=== PATIENT | female | born 1945 | race Caucasian/White ===

== ENCOUNTER 2020-01-30 01:30 | Outpatient (CLI) | payer MEDICARE, OTHER, SELFPAY ==
[2020-01-30 18:54] LABS: SARS-CoV-2 RNA PCR Negative
== END 2020-01-30 01:31 | disposition home or self-care (01) ==
PROVIDERS: PCP Internal Medicine; Visit Provider Internal Medicine Gastroenterology
DX: Z01.812 Encounter for preprocedural laboratory examination (principal); Z20.828 Contact with and (suspected) exposure to other viral communicable diseases
CPT/HCPCS: 87635; C9803; U0003

== ENCOUNTER 2020-02-01 00:49 | Day surgery (SDC) | payer MEDICARE, OTHER, SELFPAY ==
[2020-01-26 13:58] VITALS: BMI 32.0
[2020-02-01 08:32] VITALS: BP 144/81; PULSE 69; RESP 18; TEMP 36.6; O2SAT 100
--- NOTE | 2020-02-01 08:48 | P.PNAN_ITS ---
Anes - Initial Pre Proc Eval Procedure: Operation Date: 02/01/20 09:00 Proposed Procedures p Esophagogastroduodenoscopy - Tyshawn Colon MD Date/Time: 02/01/20 08:48 Surgeon: Tyshawn Colon MD Pre Op Diagnosis: Nausea and Diarrhea Patient Data Age: 74 Gender: F Height: 5 ft 3 in Weight: 83.4 kg Last Vital Signs Temp 97.9 F 02/01/20 08:32 Pulse 69 02/01/20 08:32 Resp 18 02/01/20 08:32 BP 144/81 H 02/01/20 08:32 Pulse Ox 100 02/01/20 08:32 Allergies Allergy/AdvReac Type Severity Reaction Status Date / Time Penicillins Allergy Severe SWELLING/PUFFINESS/DIFFICULTY Verified 02/01/20 08:31 BREATHING/ALOPECIA ciprofloxacin [From Cipro] Allergy Rash Verified 02/01/20 08:31 ketamine AdvReac Intermediate HALLUCINATI Verified 02/01/20 08:31 ONS Home Medications Medication Instructions Recorded Confirmed Type cholecalciferol (vitamin D3) 50 2,000 unit PO DAILY #30 tablet 05/03/19 01/26/20 Rx mcg (2,000 unit) tablet evolocumab 140 mg/mL subcutaneous 140 mg SUB-Q ONCE 05/03/19 01/26/20 History pen injector ketoconazole 2 % shampoo 1 applic TOPICAL 2XW 05/03/19 01/26/20 History clobetasol 0.05 % scalp solution 1 applic TOPICAL DAILY #50 ml 07/25/19 01/26/20 Rx zolpidem 10 mg tablet 10 mg PO .AT HS #30 tablet 10/30/19 01/26/20 Rx levothyroxine 100 mcg capsule 100 mcg PO DAILY #90 cap 11/23/19 01/26/20 Rx amitriptyline 10 mg tablet 25 mg PO .HS tablet 01/02/20 01/26/20 History losartan 50 mg-hydrochlorothiazide 1 tablet PO DAILY 01/02/20 01/26/20 History 12.5 mg tablet oxybutynin chloride 15 mg 15 mg PO DAILY 01/02/20 01/26/20 History tablet,extended release 24 hr pantoprazole 20 mg tablet,delayed 20 mg PO QAM #30 tablet 01/02/20 01/26/20 Rx release tramadol 50 mg tablet 50 mg PO Q6H PRN 01/02/20 01/26/20 History amiodarone 200 mg DAILY 01/26/20 01/26/20 History omalizumab [Xolair] 150 mg SUBCUT MONTHLY 01/26/20 01/26/20 History nystatin 100,000 unit/mL oral 5 ml PO QID #150 ml 01/30/20 Rx suspension Patient hx anesthesia problems: none Family hx anesthesia problems: none [facility] Social History Social History Smoking status: Former smoker Alcohol intake: never Anes - Eval Final PreProcedure Day of Procedure 02/01/20 08:48 Patient weight: normal Heart: regular rate and rhythm Lungs: clear to auscultation Airway: Mallampati scale class III Neurological: alert and oriented Last oral intake: >/= 8 hours ASA classification: III Emergent: no Anesthetic plan: proceed Anesthesia type and monitoring: general GIVS and standard monitoring Informed Consent: The patient's anesthetic plan and its attendant risks and benefits were discussed with the patient/family/POA. Questions were solicited and answers provided to the satisfaction of the patient/family/POA.
--- NOTE | 2020-02-01 08:51 | WPDGICN ---
Assessment and Plan Assessment and plan (1) Nausea: Code(s): R11.0 - Nausea Status: Acute Assessment and Plan: Patient has intermittent nausea along with a history of gastric ulcer. Prior history of gastric bypass. Because of patient's difficult history. Plan is for repeat EGD to assess for anatomy and pathology in this area. Continue try a pantoprazole elevating head of bed at night no late snacks is encourage. She reports of funny taste in her mouth which may be related to acid reflux but potentially may be related to medication side effects. (2) History of gastric ulcer: Code(s): Z87.19 - Personal history of other diseases of the digestive system Status: Acute (3) Gastric bypass status for obesity: Code(s): Z98.84 - Bariatric surgery status Status: Acute (4) Family history of colon cancer in mother: Code(s): Z80.0 - Family history of malignant neoplasm of digestive organs Status: Acute Assessment and Plan: Patient's family history is significant her mother had colon cancer. Most recent colon surveillance colonoscopy performed 2018 was unremarkable. This is anticipated to be repeated at 5 year intervals. Unless symptoms worsen. (5) Diarrhea: Code(s): R19.7 - Diarrhea, unspecified Status: Acute Assessment and Plan: Diarrhea occurs intermittently. Symptoms appear most consistent with irritable bowel syndrome fiber supplements are encourage. Colonoscopy several years ago was unremarkable. This will not be repeated unless symptoms worsen. GI Consult Note Consult date/time: 02/01/20 08:51 HPI: Shaista Mares is a 74 year old female seen in evaluation at the request of Dr Eligio Menezes. Patient complains of vague abdominal discomfort. She has had nausea for the last 2 months. Associated with diarrhea and loose stools. She reports a difficulty unusual taste in her mouth. She has a hard time describing this. She recently was empirically treated for possible thrush. She denies any heartburn. She denies any overt abdominal pain. She states she has watery stools 3 times a week. Otherwise stools are normal. Nausea occurs intermittently. otherwise she is able to eat normally. She sometimes will complain and nocturnal regurgitation. Past medical history is significant for gastric bypass. In the year 1999. Colonoscopy in 2018 revealed diverticulosis and hemorrhoids. An EGD in 2018 revealed evidence for previous gastric bypass surgery. Patient gives a history of gastric ulcer in the past. Current medications include a trial of pantoprazole over the last 2 weeks with no help in symptoms. Family history is significant her mother had colon cancer. Review of Systems Review of Systems: All systems reviewed & are unremarkable except as noted in HPI and below PMFSH Past Medical History Medical History Anal fistula Chronic interstitial cystitis Chronic rhinitis Contusion of urethra Cystitis IBS (irritable bowel syndrome) Kidney stone Lumbago Obesity Osteoporosis Peptic ulcer Ventral hernia Surgical History Surgical History Gastric bypass status for obesity History of colonoscopy Hx of hysterectomy, total S/P laparoscopic hernia repair Family History Family History Father Acute myocardial infarction Mother Acute myocardial infarction Mother Cancer of unknown origin Mother Kidney stones Mother Family history of malignant neoplasm Family history of renal failure, Onset Age: 78 Acute myocardial infarction Family history of kidney stones Father Acute myocardial infarction Social History Social History Smoking status: Former smoker Alcohol intake: never Meds Home Medications and Allergies
[2020-02-01] MEDS: LACTATED RINGERS 1,000 ML 150 ML IV CONT (08:52)
[2020-02-01] MEDS: BENZOCAINE (*SP) 60 ML SPRAY CAN (HURRICAINE) 1 SPRAY MUCOUS MEM (09:03)
[2020-02-01 09:19] VITALS: BP 129/68; PULSE 67; RESP 22; O2SAT 100
[2020-02-01 09:29] VITALS: BP 126/75; PULSE 66; RESP 20; O2SAT 100
[2020-02-01 09:39] VITALS: BP 136/92; PULSE 67; RESP 20; O2SAT 100
== END 2020-02-01 09:59 | disposition home or self-care (01) ==
PROVIDERS: PCP Internal Medicine; Visit Provider Internal Medicine Gastroenterology
PROC: 0DJ08ZZ Inspection of Upper Intestinal Tract, Via Natural or Artificial Opening Endoscopic (ICD-10-PCS; CPT 43235; principal; 2020-02-01 09:00)
DX: Q39.4 Esophageal web (principal); Z87.11 Personal history of peptic ulcer disease; Z98.84 Bariatric surgery status; Z80.0 Family history of malignant neoplasm of digestive organs; R19.7 Diarrhea, unspecified; M81.0 Age-related osteoporosis without current pathological fracture; E66.9 Obesity, unspecified; Z68.32 Body mass index [BMI] 32.0-32.9, adult; Z87.891 Personal history of nicotine dependence
CPT/HCPCS: 43249; C1726; J2704; J7120

== ENCOUNTER 2021-01-28 15:58 | Outpatient (CLI) | payer MEDICARE, OTHER, SELFPAY ==
--- NOTE | ~2021-01-28 | MM_ITS ---
EXAMINATION: MM screening [facility] BI w russell HISTORY: Screening mammogram TECHNIQUE: Craniocaudal and mediolateral oblique 3-D tomosynthesis images were obtained and synthetic 2-D images were generated. CAD analysis was submitted and interpreted. COMPARISON: 04/13/2019, 06/08/2017, 06/02/2016 BREAST PARENCHYMAL COMPOSITION: There are scattered areas of fibroglandular density. FINDINGS: Scattered benign-appearing calcifications are present. There is no evidence of suspicious m ass, calcification, or architectural distortion to suggest malignancy in either breast. There has bee n no suspicious interval change. IMPRESSION: 1. No mammographic evidence of malignancy. 2. Recommend routine screening mammography in one year. BI-RADS Category 2: Benign finding(s). Reviewed, dictated and finalized at location A.
== END 2021-01-28 15:59 | disposition home or self-care (01) ==
LOC: ANHIMG 16:00
PROVIDERS: PCP Internal Medicine; Visit Provider Nurse Practitioner
DX: Z12.31 Encounter for screening mammogram for malignant neoplasm of breast (principal)
CPT/HCPCS: 77063; 77067

== ENCOUNTER 2021-03-31 15:26 | Outpatient (CLI) | payer MEDICARE, OTHER, SELFPAY ==
--- NOTE | ~2021-03-31 | XR_ITS ---
EXAMINATION: XR chest 2V 03/31/2021 15:52 INDICATION: Shortness of breath PROCEDURE: 2 view chest COMPARISON: No prior studies for comparison. FINDINGS: The lungs are clear. Pacemaker leads are in expected position. The cardiomediastinal silhou ette is within normal limits. There are no pleural effusions. There is no pneumothorax suspected. There is accentuated thoracic kyphosis with moderate thoracic spondylosis. IMPRESSION: 1: NO ACUTE CARDIOPULMONARY DISEASE. Reviewed, dictated and finalized at location B.
== END 2021-03-31 15:27 | disposition home or self-care (01) ==
LOC: ANHIMG 15:39
PROVIDERS: PCP Internal Medicine
DX: R06.02 Shortness of breath (principal)
CPT/HCPCS: 71046

== ENCOUNTER 2021-10-29 16:57 | Outpatient (CLI) | payer MEDICARE, OTHER, SELFPAY ==
--- NOTE | ~2021-10-29 | US_ITS ---
EXAMINATION: US renal BI DATE: 10/29/2021 18:10 INDICATION: Chronic kidney disease stage 3A TECHNIQUE: Multiple grayscale and Doppler ultrasound images of the kidneys were obtained. COMPARISON: None available FINDINGS: The right kidney measures 8.4 x 4.2 x 4.4 cm. The left kidney measures 10.3 x 5.1 x 4.8 cm. The kidne ys demonstrate normal parenchymal echogenicity with mild cortical thinning.No sonographic evidence of nephrolithiasis. No mass. Mild right hydronephrosis. The bladder is normal, with normal bilateral ur eteral jets. Bladder wall thickness 0.4 cm. IMPRESSION: 1. Bilateral cortical atrophy. 2. Bladder wall thickening as can be seen with cystitis. Reviewed, dictated and finalized at location K.
== END 2021-10-29 16:58 | disposition home or self-care (01) ==
LOC: ANHIMG 17:02
PROVIDERS: PCP Internal Medicine; Visit Provider Internal Medicine Nephrology
DX: N18.31 Chronic kidney disease, stage 3a (principal); N13.30 Unspecified hydronephrosis
CPT/HCPCS: 76775

== ENCOUNTER 2022-06-03 10:42 | Outpatient (CLI) | payer MEDICARE, SELFPAY ==
--- NOTE | ~2022-06-03 | XR_ITS ---
Supine and upright views of the abdomen Clinical history: Right renal stone Findings: Bowel gas pattern is nonspecific. No evidence for obstruction or free air. Probable right l ower pole renal stone present, measuring 1 cm. Possible urinary bladder stone versus pelvic phlebolit h. Stable presumed neurostimulator device. Degenerative change of the lumbar spine noted. Impression: Probable 1 cm right lower pole renal stone. Possible urinary bladder stone versus pelvic phlebolith. Reviewed, dictated and finalized at location . R OPERATOR Impression: Probable 1 cm right lower pole renal stone. Possible urinary bladder stone versus pelvic phlebolith.
== END 2022-06-03 10:43 | disposition home or self-care (01) ==
PROVIDERS: PCP Internal Medicine; Visit Provider Nurse Practitioner Adult Health
DX: N20.0 Calculus of kidney (principal)
CPT/HCPCS: 74018

== ENCOUNTER 2022-06-22 15:23 | Outpatient (CLI) | payer MEDICARE, SELFPAY ==
--- NOTE | ~2022-06-22 | MM_ITS ---
EXAMINATION: MM screening [facility] BI w russell HISTORY: Screening mammogram TECHNIQUE: Craniocaudal and mediolateral oblique 3-D tomosynthesis images were obtained and synthetic 2-D images were generated. CAD analysis was submitted and interpreted. COMPARISON: 01/28/2021, 04/13/2019, 06/08/2017 bilateral screening mammogram examinations BREAST PARENCHYMAL COMPOSITION: There are scattered areas of fibroglandular density. FINDINGS: Bilateral benign calcifications. There is no evidence of suspicious mass, calcification, or architectural distortion to suggest malignancy in either breast. There has been no suspicious interv al change. IMPRESSION: 1. No mammographic evidence of malignancy. 2. Recommend routine screening mammography in one year. BI-RADS Category 2: Benign finding(s). Reviewed, dictated and finalized at location A. 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
== END 2022-06-22 15:24 | disposition home or self-care (01) ==
LOC: ANHIMG 15:26
PROVIDERS: PCP Internal Medicine; Visit Provider Internal Medicine
DX: Z12.31 Encounter for screening mammogram for malignant neoplasm of breast (principal)
CPT/HCPCS: 77063; 77067

== ENCOUNTER 2022-07-03 12:56 | Outpatient (CLI) | payer MEDICARE, SELFPAY ==
--- NOTE | 2022-07-03 13:11 | ECG_ITS ---
Measurements Intervals [place] Rate: 67 P: 119 WI: 180 QRS: 4 QRSD: 114 T: 5 QT: 401 QTc: 425 Interpretive Statements ELECTRONIC ATRIAL PACEMAKER LOW QRS VOLTAGE IN PRECORDIAL LEADS INCOMPLETE RIGHT BUNDLE BRANCH BLOCK BASELINE ARTIFACT- I, II, III, AVR, AVL, AVF, V3-V6 BORDERLINE ECG NO PREVIOUS ECG AVAILABLE FOR COMPARISON Electronically Signed On 07-03-2022 13:39:05 RETAIL OPERATIONS MANAGER by Edinson Nguyen D.O.
[2022-07-03 14:11] LABS: Anion Gap 7 mmol/L (8-16); Blood Urea Nitrogen 17 mg/dL (7-17); Calcium 9.1 mg/dL (8.4-10.2); Carbon Dioxide 25 mmol/L (22-30); Chloride 104 mmol/L (98-107); Estimated Glomerular Filt Rate 37; Glucose 75 mg/dL (65-110); Sodium 136 mmol/L (137-145)
[2022-07-03 14:13] LABS: INR 1.1; Prothrombin Time 14.1 Seconds (11.1-14.7)
[2022-07-03 14:14] LABS: Partial Thromboplastin Time 32.2 SECONDS (22.3-36.8)
== END 2022-07-03 12:57 | disposition home or self-care (01) ==
PROVIDERS: Anesthesiology; PCP Internal Medicine; Visit Provider Urology
DX: Z01.818 Encounter for other preprocedural examination (principal); Z79.899 Other long term (current) drug therapy; I10 Essential (primary) hypertension; N20.0 Calculus of kidney; Z95.0 Presence of cardiac pacemaker
CPT/HCPCS: 36415; 80048; 85610; 85730; 87086; 87088; 93005

== ENCOUNTER 2022-07-10 00:02 | Day surgery (SDC) | payer MEDICARE, SELFPAY ==
[2022-07-01 13:18] VITALS: BMI 29.7
--- NOTE | 2022-07-01 13:31 | PC.NURSE ---
PRE-OP INSTRUCTIONS, PLEASE READ CAREFULLY Report to the Outpatient Waiting Room, entrance under the green pavilion located off [facility], at time _0600_ on date _07/10/22_. Planned Procedure Time: _0730_. Time changes happen often and if your time is changed the preop area will call you the afternoon before. - You and your visitor will be asked to self-screen and do not enter if you have any COVID symptoms. - Only one visitor is requested with a max of two and NO children visitors are allowed at this time. - The patient visitor may be requested to leave or wait in car when not with patient due to distancing restrictions. - A mask is optional within the hospital. Patients may have clear liquids (water, carbonated beverages, clear teas, apple juice) until 3 hours prior to surgery (0430 AM) with a maximum of 20 ounces. - No food from midnight until time of surgery Take the following medications with a SIP of water the morning of surgery: _LEVOTHYROXINE_ Medications to discontinue _ELIQUIS PER DR. ROACH/DR. PURDY'S INSTRUCTIONS_ Medications to discontinue per ANESTHESIA - _MULTIVITAMIN, ELDERBERRY 3 DAYS PRIOR TO SURGERY, Date to take last dose 07/06/22_ Please no make-up, nail cape verdean, hairspray, perfume, deodorant, or body powder the day of surgery. No jewelry (including any body piercings) or valuables the day of surgery, leave them at home. Please take a shower or bath the night before, or the morning of, surgery with an antibacterial soap. Wear comfortable, loose fitting clothing. - Jewelry must be removed prior to entering the operating room. Rings and piercings that are not removed may be cut off. - The hospital will not accept responsibility for valuables. - Please leave all valuables, including medications, at home the day of surgery. If you are going home after surgery, a licensed driver starting gate must drive you home. - NO public transportation without another adult if you receive anesthesia. - We recommend that an adult stay with you for 24 hours following discharge. - We also recommend that you do not drive, make important decision, drink alcoholic beverages, or take any drugs that were not prescribed by your health care provider for at least 24 hours after your discharge time. Follow any additional instructions given to you from your surgeon. If you or anyone in your household have experienced Covid symptoms in the past week, please notify your surgeon or the nurse liaison at the phone number below for possible testing. Telephone instructions given to _PATIENT_and asked if any additional questions and then verbalized understanding. Patient advised to call surgeon office or pre surgery nurse liaison [phone] if any additional questions.
--- NOTE | 2022-07-07 07:48 | PM.HPGS ---
History of Present Illness History of Present Illness Consent: Risks, benefits, and alternatives have been discussed and questions answered. Patient agrees to proceed with procedure. Chief complaint: Rt Renal Kidney Stones Narrative: Shaista Mares is a 76 year old female who was recently undergoing evaluation for recurrent urinary tract infections by our nurse practitioner, Elvis Corona, when he renal ultrasound demonstrated a 8 mm right, nonobstructing renal calculus. The stone appears calcified on KUB. After discussion of therapeutic options he has elected to proceed with right ESWL. She is aware of the risk of this including, but not limited to, adverse cardiopulmonary events, persistent stone fragments that may require additional procedures, hematuria and perinephric hematoma. Review of Systems Cardiovascular: Cardiovascular: Denies chest pain, Denies lightheadedness, Denies palpitations and Denies dyspnea Respiratory: Respiratory: Denies dyspnea Gastrointestinal: Gastrointestinal: Denies diarrhea, Denies nausea and Denies vomiting Genitourinary: Genitourinary: Denies hematuria and Denies dysuria Endocrine: Endocrine: Denies palpitations PMFSH Past Medical History Medical History Anal fistula Chronic interstitial cystitis Chronic rhinitis Contusion of urethra Cystitis Depressive disorder Diarrhea Disorder of iron metabolism Effusion of knee joint right Effusion, left knee Esophageal reflux Family history of colon cancer in mother History of gastric ulcer Hyperlipidemia Hypertension Hypothyroidism IBS (irritable bowel syndrome) Insomnia Kidney stone Left knee DJD Left knee pain Lipids serum increased Low iron Lumbago Nausea Obesity Osteoporosis Peptic ulcer Rash Right knee DJD Right knee pain Screening mammogram, encounter for Ventral hernia Surgical History Surgical History Gastric bypass status for obesity History of colonoscopy History of permanent cardiac pacemaker placement Hx of hysterectomy, total S/P laparoscopic hernia repair Family History Family History Father Acute myocardial infarction Mother Acute myocardial infarction Mother Cancer of unknown origin Mother Kidney stones Mother Family history of malignant neoplasm Family history of renal failure, Onset Age: 78 Acute myocardial infarction Family history of kidney stones Father Acute myocardial infarction Social History Social History (Updated 04/29/22 @ 14:16 by Anitha Yung MA) Years smoked: 30 Smoking status: Former smoker Tobacco type: cigarettes Second hand tobacco smoke exposure: No Additional smoking assessment comments: STATES SMOKED 1PK/WEEK OFF-ON/30YRS/QUIT 1989 Alcohol intake: never Substance use: never Substance use type: does not use Lack of Transportation: No Lack of Food: Never True Current Housing: I Have Housing Concerned About Future Housing: No Difficulty Paying Gas/Electric Bills: No Difficulty Paying for Meds: No Currently Unemployed: No Education: High School Diploma/GED Difficulty w/ Childcare or Family Care: No Living arrangements: with family Spiritual care concerns: No Meds Home Medications and Allergies Home Medications Medication Instructions Recorded Confirmed Type losartan 50 mg-hydrochlorothiazide 1 tablet PO DAILY 01/02/20 07/01/22 History 12.5 mg tablet omalizumab 150 mg/mL subcutaneous 150 mg subcut MONTHLY 01/26/20 07/01/22 History syringe (Xolair) amitriptyline 10 mg tablet 10 mg PO .QHS 05/08/20 07/01/22 History cetirizine 10 mg capsule (All Day 10 mg PO DAILY 05/08/20 07/01/22 History Allergy (cetirizine)) evolocumab 140 mg/mL subcutaneous 140 mg subcut .Q 2 weeks 05/08/20 07/01/22 History pen injector (Sree Miramontes) apixaban 5 mg
[2022-07-10] VITALS (9 sets, daily range): BP systolic 132–149; BP diastolic 72–87; PULSE 63–78; RESP 16–19; TEMP 36.1–36.3; O2SAT 97–100
--- NOTE | ~2022-07-10 | XR_ITS ---
Supine and upright views of the abdomen Clinical history: Lithotripsy COMPARISON: 06/03/2022 Findings: Bowel gas pattern is nonspecific. No evidence for obstruction or free air. Right lower pole renal stone measures 1 cm in size. Calcified pelvic phleboliths are similar to prior exam.. Evidence of prior herniorrhaphy noted. Electronic medical office coordinator unchanged. Osseous structures are intact. Impression: 1 cm right lower pole renal stone. Evidence of prior herniorrhaphy. Stable electronic medical office coordinator. Reviewed, dictated and finalized at location . [employer]ICAL [employer] Impression: 1 cm right lower pole renal stone. Evidence of prior herniorrhaphy. Stable electronic medical office coordinator.
--- NOTE | 2022-07-10 06:45 | WPDHPUPDATE1 ---
History and Physical Update Update Date/Time: 07/10/22 06:45 History and Physical has been reviewed, including an updated exam of the patient. There are NO changes in the patient's condition. Risks, benefits, and alternatives have been discussed and questions answered. Patient agrees to proceed with procedure.
--- NOTE | 2022-07-10 06:47 | WPDHPUPDATE1 ---
History and Physical Update Update Date/Time: 07/10/22 06:47 History and Physical has been reviewed, including an updated exam of the patient. There are NO changes in the patient's condition. Risks, benefits, and alternatives have been discussed and questions answered. Patient agrees to proceed with procedure.
--- NOTE | 2022-07-10 06:49 | WPDHPUPDATE1 ---
History and Physical Update Update Date/Time: 07/10/22 06:49 History and Physical has been reviewed, including an updated exam of the patient. There are NO changes in the patient's condition. Risks, benefits, and alternatives have been discussed and questions answered. Patient agrees to proceed with procedure.
[2022-07-10] MEDS: LACTATED RINGERS 1,000 ML 30 ML IV CONT (07:05)
--- NOTE | 2022-07-10 07:18 | WPDANESEPPF ---
Anes - Initial Pre Proc Eval Procedure: Operation Date: 07/10/22 07:30 Proposed Procedures p Right Extracorporeal Shock Wave Lithotripsy - Joe Kennedy MD s Flexible Cystoscopy - Joe Kennedy MD Date/Time: 07/10/22 07:18 Surgeon: Joe Kennedy MD Pre Op Diagnosis: Rt Renal Kidney Stones Patient Data Age: 76 Gender: F Height: 1.61 m Weight: 75.5 kg Last Vital Signs Temp 36.3 C L 07/10/22 07:08 Pulse 78 07/10/22 07:08 Resp 16 07/10/22 07:08 BP 145/84 H 07/10/22 07:08 Pulse Ox 100 07/10/22 07:08 O2 Del Method Room Air 07/10/22 07:08 Allergies Allergy/AdvReac Type Severity Reaction Status Date / Time Penicillins Allergy Severe SWELLING/PUFFINESS/DIFFICULTY Verified 07/10/22 06:37 BREATHING/ALOPECIA doxycycline Allergy Intermediate Rash Verified 07/10/22 06:37 ciprofloxacin [From Cipro] Allergy Rash Verified 07/10/22 06:37 ketamine AdvReac Intermediate HALLUCINATI Verified 07/10/22 06:37 ONS Home Medications Medication Instructions Recorded Confirmed Type losartan 50 mg-hydrochlorothiazide 1 tablet PO DAILY 01/02/20 07/01/22 History 12.5 mg tablet omalizumab 150 mg/mL subcutaneous 150 mg subcut MONTHLY 01/26/20 07/01/22 History syringe (Xolair) amitriptyline 10 mg tablet 10 mg PO .QHS 05/08/20 07/01/22 History cetirizine 10 mg capsule (All Day 10 mg PO DAILY 05/08/20 07/01/22 History Allergy (cetirizine)) evolocumab 140 mg/mL subcutaneous 140 mg subcut .Q 2 weeks 05/08/20 07/01/22 History pen injector (Repatha SureClick) apixaban 5 mg tablet (Eliquis) 5 mg PO BID 10/03/20 07/01/22 History hydroxyzine HCl 25 mg tablet 25 mg PO DAILY PRN Itching 10/03/20 07/01/22 History levothyroxine 100 mcg tablet See Rx Instructions .Route 02/02/22 07/01/22 Rx .COMPLEX #90 tabs ketoconazole 2 % shampoo 1 applic topical 2XW #120 mL 05/21/22 07/01/22 Rx sertraline 25 mg tablet 25 mg PO DAILY #30 tabs 06/16/22 07/01/22 Rx cholecalciferol (vitamin D3) 125 125 mcg PO DAILY 07/01/22 07/01/22 History mcg (5,000 unit) capsule docusate sodium 100 mg tablet 100 mg PO DAILY 07/01/22 07/01/22 History (Stool Softener) elderberry fruit 200 mg capsule 400 mg PO DAILY 07/01/22 07/01/22 History multivitamin 1 tablet PO DAILY 07/01/22 07/01/22 History zolpidem 10 mg tablet 10 mg PO DAILY #30 tabs 07/08/22 Rx Patient hx anesthesia problems: none Family hx anesthesia problems: post op nausea/vomiting Results Review: All pre-operative results and documents have been reviewed as part of the pre-operative evaluation. [facility] Past Medical History Medical History Anal fistula Chronic interstitial cystitis Chronic rhinitis Contusion of urethra Cystitis Depressive disorder Diarrhea Disorder of iron metabolism Effusion of knee joint right Effusion, left knee Esophageal reflux Family history of colon cancer in mother History of gastric ulcer Hyperlipidemia Hypertension Hypothyroidism IBS (irritable bowel syndrome) Insomnia Kidney stone Left knee DJD Left knee pain Lipids serum increased Low iron Lumbago Nausea Obesity Osteoporosis Peptic ulcer Rash Right knee DJD Right knee pain Screening mammogram, encounter for Ventral hernia Surgical History Surgical History Gastric bypass status for obesity History of colonoscopy History of permanent cardiac pacemaker placement Hx of hysterectomy, total S/P laparoscopic hernia repair Family History Family History Father Acute myocardial infarction Mother Acute myocardial infarction Mother Cancer of unknown origin Mother Kidney stones Mother Family history of malignant neoplasm Family history of renal failure, Onset Age: 78 Acute myocardial infarction Family history of kidney stones Father Acute myocardial infarction S
[2022-07-10] MEDS: ceFAZolin 2 GM/D5W 50 ML 2 GM/50 ML BAG IVPB (07:29)
[2022-07-10] MEDS: LIDOCAINE HCL 2% GEL UROJET 10 ML PKG MUCOUS MEM (07:45)
--- NOTE | 2022-07-10 08:13 | P.OP_ITS ---
Procedure Note - Detailed Date of Procedure 07/10/22 Pre-op Diagnosis Right kidney stone / recurrent UTI's Post-op Diagnosis Same Procedure Performed Flexible cystoscopy, right ESWL Surgeon Joe Kennedy MD Anesthesia General Description of Procedure The patient was brought to the operative suite where she was placed in the frog- legged position on the Dornier lithotripter table. Flexible cystoscopy was undertaken with a 16F flexible cystoscopy. Her urethra and bladder neck were endoscopically normal. The bladder mucosa was normal and there was a single, orthotopic ureteral orifice bilaterally. The patient was then repositioned in the supine position and the focal point of the lithotriptor was placed at a 8mm right renal calculus. A total of 2500 shocks were delivered at a power setting of 3. There appeared to be good fragmentation of the stone. The patient tolerated the procedure well and was taken to the recovery room in good condition. Drains No Packing No Pathology None sent Complications No immediate complications
--- NOTE | 2022-07-10 08:55 | PC.NURSE ---
attempted x2 for IV insertion without success. Will address pain by giving patient oral pain medication, which patient agrees with.
[2022-07-10] MEDS: oxyCODONE HCL (*CRX) 2.5 MG TAB IR PO (08:57)
== END 2022-07-10 10:08 | disposition home or self-care (01) ==
PROVIDERS: PCP Internal Medicine; Visit Provider Urology
PROC: (CPT 50590; principal; 2022-07-10 07:30)
PROC: 0TJB8ZZ Inspection of Bladder, Via Natural or Artificial Opening Endoscopic (ICD-10-PCS; CPT 52000; 2022-07-10 07:30)
DX: N20.0 Calculus of kidney (principal); Z87.440 Personal history of urinary (tract) infections; I10 Essential (primary) hypertension; E03.9 Hypothyroidism, unspecified; E78.5 Hyperlipidemia, unspecified; F32.A Depression, unspecified; K21.9 Gastro-esophageal reflux disease without esophagitis; K58.9 Irritable bowel syndrome, unspecified; M81.0 Age-related osteoporosis without current pathological fracture; Z95.0 Presence of cardiac pacemaker; Z98.84 Bariatric surgery status; Z87.891 Personal history of nicotine dependence; Z79.01 Long term (current) use of anticoagulants; Z79.899 Other long term (current) drug therapy
CPT/HCPCS: 50590; 52000; 36415; 74018; 80048; 85610; 85730; 87086; 87088; 93005; A9270; J0690; J3010; J7120

== ENCOUNTER 2022-07-24 14:35 | Outpatient (CLI) | payer MEDICARE, SELFPAY ==
--- NOTE | ~2022-07-24 | XR_ITS ---
EXAMINATION: XR abdomen/kub 1V INDICATION: Calculus of the kidney TECHNIQUE: Supine view of the abdomen is obtained. COMPARISON: 07/10/2022 FINDINGS: The previously described right kidney lower pole stone is no longer identified. There are p hleboliths of the pelvis. No definite stones are identified along the expected course of the right ur eter. Changes of mesh hernia repair are noted. The bowel gas pattern is normal. 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 IMPRESSION: 1. No definite urolithiasis identified. Reviewed, dictated and finalized at location B. [employer] MASTER
== END 2022-07-24 14:36 | disposition home or self-care (01) ==
LOC: ANHIMG 14:36
PROVIDERS: PCP Internal Medicine; Visit Provider Urology
DX: N20.0 Calculus of kidney (principal)
CPT/HCPCS: 74018

== ENCOUNTER 2023-01-01 14:23 | Outpatient (CLI) | payer MEDICARE, SELFPAY ==
--- NOTE | ~2023-01-01 | XR_ITS ---
XR abdomen/kub 1V DATE: 01/01/2023 14:43 INDICATION: Right renal stone TECHNIQUE: 2 supine AP views of the abdomen COMPARISON: July 24, 2022 KUB 07/10/2022 KUB FINDINGS: Right atrial and right ventricular pacemaker leads and left-sided pacemaker device. Postoperative change is noted with radiopaque sutures and surgical clips overlying the superomedial l eft upper quadrant. Status post mesh hernia repair of the upper and mid abdominal wall. Right-sided battery pack with right sacral neural foraminal lead. No obvious renal or ureteral calcified calculi are noted.. The 1 cm calcific calculus of the lower po le the right kidney of 07/10/2022 is no longer identified. One or more probable bladder calculi, which has (have) shifted from the left to the right side of the urinary bladder since 07/10/2022. Degenerative spurring and levoscoliosis of the thoracic spine. Lumbar dextroscoliosis. Prominent degenerative disease at L3-4, L4-5 and L5-S1. Osteopenia. IMPRESSION: Probable bladder calcified calculi Reviewed, dictated and finalized at Location A. Reviewed, dictated and finalized at location B.
== END 2023-01-01 14:24 | disposition home or self-care (01) ==
PROVIDERS: PCP Family Medicine; Visit Provider Urology
DX: N20.0 Calculus of kidney (principal)
CPT/HCPCS: 74018

== ENCOUNTER 2023-03-11 00:30 | Day surgery (SDC) | payer MEDICARE, SELFPAY ==
[2023-03-02 13:19] VITALS: BMI 28.6
[2023-03-11 09:53] VITALS: BP 149/86; PULSE 66; RESP 20; TEMP 36.4; O2SAT 100; BMI 28.3
--- NOTE | 2023-03-11 10:14 | WPDANESEPPF ---
Anes - Initial Pre Proc Eval Procedure: Operation Date: 03/11/23 11:15 Proposed Procedures p Esophagogastroduodenoscopy & Colonoscopy - Tyshawn Colon MD Date/Time: 03/11/23 10:14 Surgeon: Tyshawn Colon MD Pre Op Diagnosis: GERD,unspec abd pain,other fecal abnormalities Patient Data Age: 77 Gender: F Height: 1.63 m Weight: 74.9 kg Last Vital Signs Temp 97.6 F 03/11/23 09:53 Pulse 66 03/11/23 09:53 Resp 20 03/11/23 09:53 BP 149/86 H 03/11/23 09:53 Pulse Ox 100 03/11/23 09:53 O2 Del Method Room Air 03/11/23 09:53 Allergies Allergy/AdvReac Type Severity Reaction Status Date / Time Penicillins Allergy Severe SWELLING/PUFFINESS/DIFFICULTY Verified 03/02/23 13:21 BREATHING/ALOPECIA ciprofloxacin [From Cipro] Allergy Intermediate Rash Verified 03/02/23 13:21 doxycycline Allergy Intermediate Rash Verified 03/02/23 13:21 ketamine AdvReac Intermediate HALLUCINATI Verified 03/02/23 13:21 ONS Home Medications Medication Instructions Recorded Confirmed Type omalizumab 150 mg/mL subcutaneous 150 mg subcut MONTHLY 01/26/20 03/02/23 History syringe (Xolair) amitriptyline 10 mg tablet 10 mg PO .QHS 05/08/20 03/02/23 History cetirizine 10 mg capsule (All Day 10 mg PO DAILY 05/08/20 03/02/23 History Allergy (cetirizine)) evolocumab 140 mg/mL subcutaneous 140 mg subcut .Q 2 weeks 05/08/20 03/02/23 History pen injector (Repatha SureClick) apixaban 5 mg tablet (Eliquis) 5 mg PO BID 10/03/20 03/02/23 History hydroxyzine HCl 25 mg tablet 25 mg PO DAILY PRN Itching 10/03/20 03/02/23 History cholecalciferol (vitamin D3) 125 125 mcg PO DAILY 07/01/22 03/02/23 History mcg (5,000 unit) capsule docusate sodium 100 mg tablet 100 mg PO DAILY PRN OTHER 07/01/22 03/02/23 History (Stool Softener) elderberry fruit 200 mg capsule 200 mg PO DAILY 07/01/22 03/02/23 History multivitamin 1 tablet PO DAILY 07/01/22 03/02/23 History sertraline 25 mg tablet 25 mg PO DAILY #30 tabs 11/16/22 03/02/23 Rx potassium citrate 10 mEq (1,080 1,080 mg PO BID #60 tabs 12/04/22 03/02/23 Rx mg) tablet,extended release levothyroxine 75 mcg tablet 75 mcg PO DAILY #90 tabs 01/03/23 03/02/23 Rx sodium,potassium,mag sulfates 17.5 See Rx Instructions PO .COMPLEX 02/10/23 Rx gram-3.13 gram-1.6 gram oral soln #354 mL (Suprep Bowel Prep Kit) ketoconazole 2 % shampoo 1 applic topical 2XW #120 mL 02/17/23 03/02/23 Rx omeprazole 20 mg capsule,delayed 20 mg PO DAILY #90 caps 02/17/23 03/02/23 Rx release ondansetron 4 mg disintegrating 4 mg PO Q8H PRN nausea and 02/17/23 03/02/23 Rx tablet vomiting #30 tabs essrbh-mehdepbh-mfrgrus 1 cap PO TID #30 caps 02/18/23 03/02/23 Rx 24,000-76,000-120,000 unit capsule,delayed rel (Creon) sodium,potassium,mag sulfates 17.5 See Rx Instructions PO .COMPLEX 02/24/23 Rx gram-3.13 gram-1.6 gram oral soln #354 mL (Suprep Bowel Prep Kit) cyclosporine 0.05 % eye drops in a 1 drp EACH EYE PRN PRN DRYNESS 03/02/23 03/02/23 History dropperette (Restasis) lidocaine 5 % topical patch 1 patch topical DAILY PRN Pain 03/02/23 03/02/23 History (Lidoderm) zolpidem 10 mg tablet 10 mg PO HS 03/02/23 03/02/23 History Patient hx anesthesia problems: none Family hx anesthesia problems: none Results Review: All pre-operative results and documents have been reviewed as part of the pre-operative evaluation. [facility] Past Medical History Medical History Anal fistula Chronic interstitial cystitis Chronic rhinitis Contusion of urethra Cystitis Depressive disorder Diarrhea Disorder of iron metabolism Effusion of knee joint right Effusion, left knee Esophageal reflux Family history of colon cancer in mother History of gastric ulcer Hyperlipidemia Hypertension Hypothyroidism IBS (irritable bowel syndrome) Insomnia Kidney stone Left knee DJD Left knee pain Lipids serum increased Low iron Lumbago Nausea O
--- NOTE | 2023-03-11 10:16 | PM.HPGS ---
History of Present Illness History of Present Illness Consent: Risks, benefits, and alternatives have been discussed and questions answered. Patient agrees to proceed with procedure. Chief complaint: abdominal pain, positive cologuard Narrative: Shaista Mares is a 77 year old female Presents for both colonoscopy and EGD. Patient complains of epigastric nausea and bloating over last 3 months along with discomfort. She additionally has low abdominal discomfort. Patient's past history is significant for gastric bypass surgery apparently had for revisions to this including hernia surgeries. Family history is significant her mother had colon cancer. Despite this she had a positive Cologuard test. She is known to have hemorrhoids and has bright red blood per rectum intermittently. Patient referred for both colonoscopy and EGD. She denies any weight loss. Review of Systems Review of Systems: Review of systems noncontributory. [facility] Past Medical History Medical History Anal fistula Chronic interstitial cystitis Chronic rhinitis Contusion of urethra Cystitis Depressive disorder Diarrhea Disorder of iron metabolism Effusion of knee joint right Effusion, left knee Esophageal reflux Family history of colon cancer in mother History of gastric ulcer Hyperlipidemia Hypertension Hypothyroidism IBS (irritable bowel syndrome) Insomnia Kidney stone Left knee DJD Left knee pain Lipids serum increased Low iron Lumbago Nausea Obesity Osteoporosis Peptic ulcer Rash Right knee DJD Right knee pain Screening mammogram, encounter for Ventral hernia Surgical History Surgical History Gastric bypass status for obesity History of colonoscopy History of permanent cardiac pacemaker placement Hx of hysterectomy, total S/P laparoscopic hernia repair Family History Family History Father Acute myocardial infarction Mother Acute myocardial infarction Mother Cancer of unknown origin Mother Kidney stones Mother Family history of malignant neoplasm Family history of renal failure, Onset Age: 78 Acute myocardial infarction Family history of kidney stones Father Acute myocardial infarction Social History Social History Years smoked: 20 Smoking status: Former smoker Tobacco type: cigarettes Second hand tobacco smoke exposure: No Additional smoking assessment comments: STATES SMOKED 1PK/WEEK OFF-ON/30YRS/QUIT 1989 Alcohol intake: current Substance use: never Substance use type: does not use Lack of Transportation: No Lack of Food: Never True Current Housing: I Have Housing Concerned About Future Housing: No Difficulty Paying Gas/Electric Bills: No Difficulty Paying for Meds: No Currently Unemployed: No Education: High School Diploma/GED Difficulty w/ Childcare or Family Care: No Living arrangements: with family Gender identity (if verbalized by the patient): Female Spiritual care concerns: No Meds Home Medications and Allergies Home Medications Medication Instructions Recorded Confirmed Type omalizumab 150 mg/mL subcutaneous 150 mg subcut MONTHLY 01/26/20 03/02/23 History syringe (Xolair) amitriptyline 10 mg tablet 10 mg PO .QHS 05/08/20 03/02/23 History cetirizine 10 mg capsule (All Day 10 mg PO DAILY 05/08/20 03/02/23 History Allergy (cetirizine)) evolocumab 140 mg/mL subcutaneous 140 mg subcut .Q 2 weeks 05/08/20 03/02/23 History pen injector (Sree Miramontes) apixaban 5 mg tablet (Eliquis) 5 mg PO BID 10/03/20 03/02/23 History hydroxyzine HCl 25 mg tablet 25 mg PO DAILY PRN Itching 10/03/20 03/02/23 History cholecalciferol (vitamin D3) 125 125 mcg PO DAILY 07/01/22 03/02/23 History mcg (5,000 unit) capsule docusate sodium 100 mg ta
[2023-03-11] MEDS: LACTATED RINGERS 1,000 ML 150 ML IV CONT (10:17)
[2023-03-11 11:32] VITALS: BP 138/77; PULSE 66; RESP 20; O2SAT 100
[2023-03-11 11:42] VITALS: BP 145/82; PULSE 63; RESP 21; O2SAT 98
[2023-03-11 11:52] VITALS: BP 155/89; PULSE 65; RESP 21; O2SAT 99
== END 2023-03-11 12:00 | disposition home or self-care (01) ==
PROVIDERS: PCP Family Medicine; Visit Provider Internal Medicine Gastroenterology
PROC: 0DJ08ZZ Inspection of Upper Intestinal Tract, Via Natural or Artificial Opening Endoscopic (ICD-10-PCS; CPT 43235; principal; 2023-03-11 11:15)
DX: K62.5 Hemorrhage of anus and rectum (principal); R19.5 Other fecal abnormalities; D12.5 Benign neoplasm of sigmoid colon; K64.8 Other hemorrhoids; K57.30 Diverticulosis of large intestine without perforation or abscess without bleeding; Z80.0 Family history of malignant neoplasm of digestive organs; Z98.84 Bariatric surgery status; I10 Essential (primary) hypertension; E78.5 Hyperlipidemia, unspecified; M81.0 Age-related osteoporosis without current pathological fracture; F32.A Depression, unspecified; K21.9 Gastro-esophageal reflux disease without esophagitis; K58.9 Irritable bowel syndrome, unspecified; Z95.0 Presence of cardiac pacemaker; Z79.620 Long term (current) use of immunosuppressive biologic; Z79.01 Long term (current) use of anticoagulants; Z87.891 Personal history of nicotine dependence
CPT/HCPCS: 45380; 43239; 87081; 88305; J2704; J7120

== ENCOUNTER 2023-09-03 10:31 | Outpatient (CLI) | payer MEDICARE, SELFPAY ==
--- NOTE | ~2023-09-03 | XR_ITS ---
XR ribs RT 2V DATE: 09/03/2023 10:53 INDICATION: Lower anterior right rib pain TECHNIQUE: 4 views of right ribs COMPARISON: None FINDINGS: There is diffuse osteopenia. No apparent right rib fracture is noted. Left transvenous pacemaker device with right atrial and right ventricular leads. Surgical clips, medial left upper quadrant. Right gluteal battery pack with right sacral neurotransmitter lead. Status post ventral abdominal wall repair. IMPRESSION: Osteopenia; no right rib fracture is evident Reviewed, dictated and finalized at location B.
--- NOTE | ~2023-09-03 | XR_ITS ---
XR abdomen/kub 1V DATE: 09/03/2023 10:54 INDICATION: Right renal stone. Lower anterior rib pain. TECHNIQUE: 2 AP views COMPARISON: 01/01/2023 KUB Numerous KUB FINDINGS: Left-sided transvenous pacemaker device with leads overlying right atrium and right ventric le. Normal heart size. The lower lung romano are clear. Surgical clips, left upper quadrant. Status post abdominal wall mesh repair. Right lower back battery pack with right sacral neurotransmitter lead. Levoscoliosis and probable compression fractures of the thoracic spine and mild rotatory dextroscolio sis and multilevel degenerative disc disease of the lumbar spine. Osteopenia. No obvious urinary tract calcification is noted. Bilateral calcified pelvic phleboliths. Bowel sutures overlie the left mid abdomen. No bowel obstruction or visceromegaly is evident. IMPRESSION: Postoperative changes Reviewed, dictated and finalized at Location A. Reviewed, dictated and finalized at location B. IMPRESSION: Postoperative changes
== END 2023-09-03 10:32 | disposition home or self-care (01) ==
LOC: ANHIMG 10:37
PROVIDERS: PCP Family Medicine; Visit Provider Physician Assistant
DX: R07.81 Pleurodynia (principal); M85.80 Other specified disorders of bone density and structure, unspecified site
CPT/HCPCS: 71100; 74018

== ENCOUNTER 2023-11-16 12:52 | Outpatient (CLI) | payer MEDICARE, SELFPAY ==
--- NOTE | 2023-11-16 14:30 | NEURO_ITS ---
Impression: # Complains of numbness of hands. # Right ulnar neuropathy across the elbow. # No Carpal Tunnel Syndrome. # Normal needle/EMG exam. Nerve Conduction Studies Anti Sensory Summary Table Stim Site NR Peak (ms) P-T Amp (?V) Site1 Site2 Delta-P (ms) Dist (cm) Heath (m/s) Left Median Anti Sensory (2-3nd Digit) Wrist 2.9 30.8 Wrist 2-3nd Digit 2.9 14.0 48 Wrist 2.9 43.0 Wrist 2-3nd Digit 2.9 14.0 48 Right Median Anti Sensory (2-3nd Digit) Wrist 2.7 35.0 Wrist 2-3nd Digit 2.7 14.0 52 Wrist 2.7 36.1 Wrist 2-3nd Digit 2.7 14.0 52 Left Radial Anti Sensory (Base 1st Digit) Wrist 2.0 14.9 Wrist Base 1st Digit 2.0 0.0 Right Radial Anti Sensory (Base 1st Digit) Wrist 2.8 9.3 Wrist Base 1st Digit 2.8 0.0 Left Ulnar Anti Sensory (5th Digit) Wrist 2.8 37.6 Wrist 5th Digit 2.8 14.0 50 Right Ulnar Anti Sensory (5th Digit) Wrist 2.7 36.2 Wrist 5th Digit 2.7 14.0 52 Motor Summary Table Stim Site NR Onset (ms) O-P Amp (mV) Site1 Site2 Delta-0 (ms) Dist (cm) Heath (m/s) Left Median Motor (Abd Poll Brev) Wrist 3.4 4.1 Elbow Wrist 4.7 29.0 62 Elbow 8.1 4.2 Right Median Motor (Abd Poll Brev) Wrist 2.8 4.5 Elbow Wrist 4.9 29.0 59 Elbow 7.7 4.1 Left Ulnar Motor (Abd Dig Minimi) Wrist 2.8 9.8 A Elbow Wrist 5.1 30.0 59 A Elbow 7.9 7.9 Right Ulnar Motor (Abd Dig Minimi) Wrist 2.2 8.6 A Elbow Wrist 6.2 31.0 50 A Elbow 8.4 6.3 B Elbow Wrist 3.7 20.0 54 B Elbow 5.9 7.1 F Wave Studies NR F-Lat (ms) L-R F-Lat (ms) Left Median (Mrkrs) (Abd Poll Brev) 27.58 1.98 Right Median (Mrkrs) (Abd Poll Brev) 29.55 1.98 Left Ulnar (Mrkrs) (Abd Dig Min) 27.31 0.81 Right Ulnar (Mrkrs) (Abd Dig Min) 28.13 0.81 EMG Side Muscle Nerve Root Ins Act Fibs Amp Dur Recrt Comment Right 1stDorInt Ulnar C8-T1 Nml Nml Nml Nml Nml Right Ext Indicis Radial (Post Int) C7-8 Nml Nml Nml Nml Nml Right Ext Digitorum Radial (Post Int) C7-8 Nml Nml Nml Nml Nml Right BrachioRad Radial C5-6 Nml Nml Nml Nml Nml Right PronatorTeres Median C6-7 Nml Nml Nml Nml Nml Right Abd Poll Brev Median C8-T1 Nml Nml Nml Nml Nml Right ABD Dig Min Ulnar C8-T1 Nml Nml Nml Nml Nml Left 1stDorInt Ulnar C8-T1 Nml Nml Nml Nml Nml Left Ext Indicis Radial (Post Int) C7-8 Nml Nml Nml Nml Nml Left Ext Digitorum Radial (Post Int) C7-8 Nml Nml Nml Nml Nml Left BrachioRad Radial C5-6 Nml Nml Nml Nml Nml Left PronatorTeres Median C6-7 Nml Nml Nml Nml Nml Left Abd Poll Brev Median C8-T1 Nml Nml Nml Nml Nml Left ABD Dig Min Ulnar C8-T1 Nml Nml Nml Nml Nml MTDD
== END 2023-11-16 12:53 | disposition home or self-care (01) ==
LOC: ANHNEURO 12:53
PROVIDERS: PCP Family Medicine; Visit Provider Plastic Surgery
DX: G56.21 Lesion of ulnar nerve, right upper limb (principal)
CPT/HCPCS: 95886; 95911

== ENCOUNTER 2023-12-08 14:38 | Outpatient (CLI) | payer MEDICARE, SELFPAY ==
--- NOTE | ~2023-12-08 | MM_ITS ---
EXAMINATION: MM screening yuri BI w russell HISTORY: Screening mammogram TECHNIQUE: Craniocaudal and mediolateral oblique 3-D tomosynthesis images were obtained and synthetic 2-D images were generated. CAD analysis was submitted and interpreted. COMPARISON: 06/22/2022, 01/28/2021, 04/13/2019 BREAST PARENCHYMAL COMPOSITION:Not Dense. There are scattered areas of fibroglandular density. FINDINGS: There is a dense 1.4 cm suspected mass at the upper, outer right breast with partially obsc ured borders. Possible associated microcalcifications with the mass. Stable benign intramammary lymph nodes in the left breast. Stable benign vascular calcifications bilaterally. No suspicious mass or d istortion seen in the left breast. IMPRESSION: Suspicious 1.4 cm probable upper, outer right breast mass. Spot compression views and ultrasound are recommended for further evaluation. BI-RADS Category 0: Incomplete: Needs additional imaging evaluation. Reviewed, dictated and finalized at [facility]. IMPRESSION: Suspicious 1.4 cm probable upper, outer right breast mass. Spot compression vi ews and ultrasound are recommended for further evaluation. BI-RADS Category 0: Incomplete: Needs additional imaging evaluation.
--- NOTE | ~2023-12-08 | DEXA_ITS ---
Bone Density Report Name: KAL STRANGE Age: 77 Sex: Female Ethnicity: White Date of : 1945 Indication: osteopenia; height loss; history of glucocorticoids; hysterectomy; Referring Provider: KARYN CAM Study: Bone densitometry was performed. Exam Date: December 08, 2023 Accession number: [id number] Bone Density: Region BMD T-score Z-score Classification AP Spine(L1-L4) 0.992 -0.5 2.1 Normal Femoral Neck (Left) 0.615 -2.1 0.1 Osteopenia Total Hip (Left) 0.745 -1.6 0.3 Osteopenia Femoral Neck (Right) 0.601 -2.2 0.0 Osteopenia Total Hip (Right) 0.692 -2.1 -0.1 Osteopenia Total Hip Mean 0.718 -1.9 0.1 Osteopenia World Health Organization criteria for BMD impression classify patients as: Normal (T-score at or above -1.0), Osteopenia (T-score between -1.0 and -2.5), or Osteoporosis (T-score at or below -2.5). 10-year Fracture Risk(1): Major Osteoporotic Fracture 22% Hip Fracture 7.4% Reported Risk Factors: [place] (), Neck BMD=0.601, BMI=31.3, glucocorticoids (1) FRAX(R) Version 3.08. Fracture probability calculated for an untreated patient. Fracture probability may be lower if the patient has received treatment. Previous Exams: Region Exam Age BMD T-score BMD Change BMD Change Date g/cm2 vs Baseline vs Previous AP Spine (L1-L4) 12/08/2023 77 0.992 -0.5 -0.118 (-10.7% -0.059 (-5.6%) 06/08/2017 71 1.051 0.0 -0.059 (-5.3%) -0.094 (-8.2%) 05/06/2015 69 1.145 0.9 0.035 (3.1%)# 0.035 (3.1%)# 05/03/2013 67 1.110 0.6 Total Hip(Left) 12/08/2023 77 0.745 -1.6 -0.071 (-8.7%) -0.040 (-5.1%) 06/08/2017 71 0.785 -1.3 -0.031 (-3.8%) -0.031 (-3.8%) 05/06/2015 69 0.816 -1.0 0.000 (0.0%)# 0.000 (0.0%)# 05/03/2013 67 0.816 -1.0 Total Hip(Right) 12/08/2023 77 0.692 -2.1 -0.131 (-15.9% -0.113 (-14.0% 06/08/2017 71 0.804 -1.1 -0.018 (-2.2%) -0.016 (-1.9%) 05/06/2015 69 0.820 -1.0 -0.002 (-0.3%) -0.002 (-0.3%) 05/03/2013 67 0.822 -1.0 *Denotes significance at 95% confidence level, LSC for AP Spine = 0.022 g/cm2, LSC for Total Hip = 0.027 g/cm2 # Denotes dissimilar scan types or analysis methods Clinical Information Provided by Patient: Has taken Glucocorticoids Has used the following medications: Vitamin D Has the following medical conditions: Hysterectomy Patient maximum height was 66.75 No regular weight bearing exercise Drinks caffeinated beverages Onset of menses at age 12 Number of children 3 ---
== END 2023-12-08 14:39 | disposition home or self-care (01) ==
LOC: ANHIMG 14:39
PROVIDERS: PCP Family Medicine; Visit Provider Family Medicine
DX: Z12.31 Encounter for screening mammogram for malignant neoplasm of breast (principal); N63.11 Unspecified lump in the right breast, upper outer quadrant; R92.8 Other abnormal and inconclusive findings on diagnostic imaging of breast; Z78.0 Asymptomatic menopausal state
CPT/HCPCS: 77063; 77067; 77080

== ENCOUNTER 2023-12-31 13:11 | Outpatient (CLI) | payer MEDICARE, SELFPAY ==
--- NOTE | ~2023-12-31 | MMUS_ITS ---
EXAMINATION: MM diagnostic yuri RT w russell, US breast RT limited HISTORY: Follow-up right breast mass TECHNIQUE: Additional 3-D tomosynthesis images of the right breast were performed and synthetic 2-D i mages were generated. CAD analysis was submitted and interpreted. High resolution Limited right breas t ultrasound was performed. COMPARISON: Comparison to multiple prior studies sequentially, with oldest reviewed study dated 05/15. BREAST PARENCHYMAL COMPOSITION: Not dense: There are scattered areas of fibroglandular density. FINDINGS: MAMMOGRAPHIC FINDINGS: There is a new mass with spiculated margins in the upper outer quadrant of the right breast with asso ciated indeterminate calcifications. ULTRASOUND: Limited right breast ultrasound: At 10:00, 6 cm from the nipple there is an irregular shaped hypoecho ic mass with internal calcifications and internal vascularity. There is mixed posterior attenuation. This mass measures 12 x 11 x 11 mm. This corresponds to the mammographic finding. IMPRESSION: 1. Spiculated right breast mass located at 10:00, 6 cm from the nipple measuring 12 mm maximum dimens ion. 2. Ultrasound-guided right breast biopsy recommended. BI-RADS category 5, highly suggestive of malignancy. Reviewed, dictated and finalized at location B. IMPRESSION: 1. Spiculated right breast mass located at 10:00, 6 cm from the nipple measurin g 12 mm maximum dimension. 2. Ultrasound-guided right breast biopsy recommended. BI-RADS category 5, highly suggestive of malignancy.
== END 2023-12-31 13:12 | disposition home or self-care (01) ==
PROVIDERS: PCP Family Medicine; Visit Provider Family Medicine
DX: R92.8 Other abnormal and inconclusive findings on diagnostic imaging of breast (principal)
CPT/HCPCS: 76642; 77061; 77065; G0279

== ENCOUNTER 2024-01-18 12:36 | Outpatient (CLI) | payer MEDICARE, SELFPAY ==
--- NOTE | ~2024-01-18 | MM_ITS ---
MM post biopsy diagnostic RT 01/18/2024 14:05 Indication: Post biopsy mammogram Procedure: Digital diagnostic right mammogram Comparison: 12/31/2023 Findings: Interval placement of tissue marker contiguous with spiculated mass in the upper outer quad rant of the right breast at 10:00, 6 cm from the nipple. Impression: 1: Status post recent right breast biopsy with placement of tissue marker. Please refer to procedural report for details. Reviewed, dictated and finalized at location B. Impression: 1: Status post recent right breast biopsy with placement of tissue marker. Plea se refer to procedural report for details.
--- NOTE | ~2024-01-18 | US_ITS ---
Please refer to post biopsy diagnostic right mammogram dated 01/18/2024 for details. Reviewed, dictated and finalized at location B.
--- NOTE | 2024-01-19 14:05 | P.OP_ITS ---
Procedure Note - Detailed Date of Procedure 01/18/24 Pre-op Diagnosis RT breast mass at 10 o'clock position 6cm from the nipple Post-op Diagnosis Same Procedure Performed US guided core needle biopsy of right breast mass Surgeon Tatiana Cali MD Anesthesia Other (lidocaine with epinephrine) Indications BIRADS 5 right breast mass at 10 o'clock position 6cm from the nipple Description of Procedure Risk of the procedure were discussed with the patient which included but not limited to risk of bleeding, infection, possible need for repeat biopsy or additional procedures in the future, bruising, hematoma,etc. Benefits and alternatives to procedure were discussed as well. Consent was obtained and a time out was performed. The right breast mass was identified using the US at 10 o'clock position 6 cm from the nipple, and lidocaine with epinephrine was used to anesthetize the skin and tissue surrounding the mass under US guidance. A 10g vacuum assisted device was used to obtain 4 core biopsy specimens under US guidance. An Inrad tissue marker clip wa s then placed at the biopsy site under US guidance. Pressure was held over the area for 10 minutes with excellent hemostasis. Core needle specimens were sent to pathology in formalin. Patient tolerated the procedure well with no immediate complications. A post-procedure right mammogram was obtained to confirm the tissue marker clip placement. Estimated Blood Loss 1 Pathology Yes Complications No immediate complications Condition Stable [facility] Billing Surgery - Charge Forward: Surgery Billing (CPT 18165)
== END 2024-01-18 12:37 | disposition home or self-care (01) ==
LOC: ANHIMG 12:37
PROVIDERS: PCP Family Medicine; Visit Provider Surgery
DX: C50.911 Malignant neoplasm of unspecified site of right female breast (principal); R92.8 Other abnormal and inconclusive findings on diagnostic imaging of breast
CPT/HCPCS: 19083; 77065; 88305; 88342; 88360; A4648

== ENCOUNTER 2024-02-02 14:24 | Outpatient (CLI) | payer MEDICARE, SELFPAY ==
[2024-02-02 15:27] LABS: Partial Thromboplastin Time 28.3 Seconds (22.3-36.8); Prothrombin Time 13.8 Seconds (11.1-14.7)
== END 2024-02-02 14:25 | disposition home or self-care (01) ==
PROVIDERS: Anesthesiology; PCP Family Medicine; Visit Provider Urology
DX: Z01.818 Encounter for other preprocedural examination (principal); N18.32 Chronic kidney disease, stage 3b
CPT/HCPCS: 36415; 85610; 85730

== ENCOUNTER 2024-02-04 00:02 | Day surgery (SDC) | payer MEDICARE, SELFPAY ==
--- NOTE | 2024-01-30 12:12 | PM.IMHP ---
H&P: HPI History of Present Illness Date/Time: 01/30/24 12:12 Chief Complaint: urge incontinence Narrative: urge incontinence. InterStim in place. Battery change in 2017. 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 Effusion of knee joint right Effusion, left knee Esophageal reflux Family history of colon cancer in mother History of gastric ulcer Hyperlipidemia Hypertension Hypothyroidism IBS (irritable bowel syndrome) Insomnia Kidney stone Left knee DJD Left knee pain Lipids serum increased Low iron Lumbago Nausea Obesity Osteoporosis Peptic ulcer Rash Right knee DJD Right knee pain Screening mammogram, encounter for Ventral hernia Surgical History Surgical History Gastric bypass status for obesity History of colonoscopy History of permanent cardiac pacemaker placement Hx of hysterectomy, total S/P laparoscopic hernia repair Family History Family History Father Acute myocardial infarction Mother Acute myocardial infarction Mother Cancer of unknown origin Mother Kidney stones Mother Family history of malignant neoplasm Family history of renal failure, Onset Age: 78 Acute myocardial infarction Family history of kidney stones Father Acute myocardial infarction Social History Social History Years smoked: 20 Smoking status: Former smoker Tobacco type: cigarettes Second hand tobacco smoke exposure: No Additional smoking assessment comments: STATES SMOKED 1PK/WEEK OFF-ON/30YRS/QUIT 1989 Alcohol intake: never Substance use: never Substance use type: does not use Do You Feel Safe in your Home?: Yes Lack of Transportation: No Lack of Food: Never True Current Housing: I Have Housing Concerned About Future Housing: No Difficulty Paying Gas/Electric Bills: No Difficulty Paying for Meds: No Currently Unemployed: No Education: Trade/Vocational Certificate Difficulty w/ Childcare or Family Care: No Living arrangements: with family Occupation/Education: retired Gender identity (if verbalized by the patient): Female Sexual Orientation (if Verbalized by the Patient): Straight or Heterosexual Spiritual care concerns: No Meds Home Medications and Allergies Home Medications Medication Instructions Recorded Confirmed Type omalizumab 150 mg/mL subcutaneous 150 mg subcut MONTHLY 01/26/20 01/10/24 History syringe (Xolair) amitriptyline 10 mg tablet 10 mg PO .QHS 05/08/20 01/10/24 History evolocumab 140 mg/mL subcutaneous 140 mg subcut .Q 2 weeks 05/08/20 01/10/24 History pen injector (Sree BridgesiSvapepito) apixaban 5 mg tablet (Eliquis) 5 mg PO BID 10/03/20 01/10/24 History hydroxyzine HCl 25 mg tablet 25 mg PO DAILY PRN Itching 10/03/20 01/10/24 History cholecalciferol (vitamin D3) 125 125 mcg PO DAILY 07/01/22 01/10/24 History mcg (5,000 unit) capsule elderberry fruit 200 mg capsule 200 mg PO DAILY 07/01/22 01/10/24 History multivitamin 1 tablet PO DAILY 07/01/22 01/10/24 History potassium citrate 10 mEq (1,080 1,080 mg PO BID #60 tabs 12/04/22 01/10/24 Rx mg) tablet,extended release ketoconazole 2 % shampoo 1 applic topical 2XW #120 mL 02/17/23 01/10/24 Rx ondansetron 4 mg disintegrating 4 mg PO Q8H PRN nausea and 05/10/23 01/10/24 Rx tablet vomiting #30 tabs clobetasol 0.05 % topical ointment 1 applic topical .COMPLEX #60 grams 06/23/23 01/10/24 Rx hydrocortisone acetate 25 mg 25 mg RECTAL .QHS PRN hemorrhoids
[2024-02-01 09:55] VITALS: BMI 31.6
--- NOTE | 2024-02-01 10:24 | PC.NURSE ---
Addendum entered by Mercy Arthur RN 02/01/24 10:27: PT IS TAKING ANTIBIOTICS FOR INFLAMMATION AROUND TOOTH/CROWN, SHE NOTIFIED DR MCCALL OFFICE. Original Note: Report to the Outpatient Waiting Room, entrance under the green pavilion located off [facility], at time __7:30AM on date ___02/04/24____. Planned Procedure Time: __9:30AM . Time changes happen often and if your time is changed the preop area will call you the afternoon before. - You and your visitor will be asked to self-screen and do not enter if you have any COVID symptoms. - A mask is optional within the hospital at this time. Patients may have clear liquids (water, carbonated beverages, clear teas, apple juice) until 3 hours prior to surgery with a maximum of 20 ounces. - No food from midnight until time of surgery. Take the following medications with a SIP of water the morning of surgery: ___CLARITHROMYCIN, LEVOTHYROXINE, SERTRALINE. MAY ALSO TAKE HYDROXYZINE OR ONDANSETRON NEEDED DO NOT STOP ANY OF YOUR OTHER PRESCRIPTION MEDICATIONS PRIOR TO SURGERY ?EXCEPT THE FOLLOWING Medications to discontinue per physician ___HOLD ELIQUIS AND ALL VITAMINS/SUPPLEMENTS 3 DAYS PRE-OP PER DR PITTS, PER PATIENT Date to take last dose____01/31/24 Please no make-up, nail occitan, hairspray, perfume, deodorant, or body powder the day of surgery. No jewelry (including any body piercings) or valuables the day of surgery, leave them at home. Please take a shower or bath the night before, or the morning of, surgery with an antibacterial soap. Wear comfortable, loose fitting clothing. - Jewelry must be removed prior to entering the operating room. Rings and piercings that are not removed may be cut off. - The hospital will not accept responsibility for valuables. - Please leave all valuables, including medications, at home the day of surgery. If you are going home after surgery, a licensed mule driver must drive you home. - NO public transportation without another adult if you receive anesthesia. - We recommend that an adult stay with you for 24 hours following discharge. - We also recommend that you do not drive, make important decision, drink alcoholic beverages, or take any drugs that were not prescribed by your health care provider for at least 24 hours after your discharge time. Follow any additional instructions given to you from your surgeon. If you or anyone in your household have experienced Covid symptoms in the past week, please notify your surgeon or the nurse liaison at the phone number below for possible testing. Telephone instructions given to __PATIENT and asked if any additional questions and then verbalized understanding. Patient advised to call surgeon office or pre surgery nurse liaison [phone] if any additional questions.
--- NOTE | ~2024-02-04 | XR_ITS ---
EXAMINATION: XR fluoroscopy no charge DATE: 02/04/2024 09:15 INDICATION: Neural stimulator phase 2 TECHNIQUE: 3 fluoroscopic images of the pelvis were obtained during procedure performed by Dr. Kanika manzo. Radiologist was not present for the imaging or procedure. The amount of fluoroscopy time used duri ng this procedure was 1.2 minutes. Total DAP was 0.63 mGym^2 COMPARISON: None. FINDINGS: Paster Supervisor image demonstrates a right-sided sacral nerve root stimulator and the tip of a hemostat project ing over the contralateral neural foramen at the left side of the sacrum. Subsequent images demonstra te placement of a second left-sided sacral nerve root stimulator which advanced through the S3 neural foramen on the lateral projection. IMPRESSION: 1. Fluoroscopy utilized during placement of a second left-sided S3 nerve root stimulator. See procedu re note for further detail. Reviewed, dictated and finalized at location A. IMPRESSION: 1. Fluoroscopy utilized during placement of a second left-sided S3 nerve root s timulator. See procedure note for further detail.
[2024-02-04 07:09] VITALS: BP 129/70; PULSE 48; RESP 20; TEMP 36.5; O2SAT 20
--- NOTE | 2024-02-04 07:17 | WPDHPUPDATE1 ---
History and Physical Update Update Date/Time: 02/04/24 07:17 History and Physical has been reviewed, including an updated exam of the patient. There are NO changes in the patient's condition. Risks, benefits, and alternatives have been discussed and questions answered. Patient agrees to proceed with procedure.
--- NOTE | 2024-02-04 07:19 | WPDANESEPPF ---
Anes - Initial Pre Proc Eval Procedure: Operation Date: 02/04/24 08:45 Proposed Procedures p Neurostimulator Phase Two - Colin Saul MD Date/Time: 02/04/24 07:19 Surgeon: Colin Saul MD Pre Op Diagnosis: stress incont Patient Data Age: 78 Gender: F Height: 1.55 m Weight: 76 kg Allergies Allergy/AdvReac Type Severity Reaction Status Date / Time Penicillins Allergy Severe SWELLING/PUFFINESS/DIFFICULTY Verified 02/04/24 07:59 BREATHING/ALOPECIA ciprofloxacin [From Cipro] Allergy Intermediate Rash Verified 02/04/24 07:59 doxycycline Allergy Intermediate Rash Verified 02/04/24 07:59 ketamine AdvReac Intermediate HALLUCINATI Verified 02/04/24 07:59 ONS Home Medications Medication Instructions Recorded Confirmed Type omalizumab 150 mg/mL subcutaneous 150 mg subcut MONTHLY 01/26/20 02/04/24 History syringe (Xolair) amitriptyline 10 mg tablet 10 mg PO .QHS 05/08/20 02/04/24 History evolocumab 140 mg/mL subcutaneous 140 mg subcut .Q 2 weeks 05/08/20 02/04/24 History pen injector (Repatha SureSivaick) apixaban 5 mg tablet (Eliquis) 5 mg PO BID 10/03/20 02/04/24 History hydroxyzine HCl 25 mg tablet 25 mg PO DAILY PRN Itching 10/03/20 02/04/24 History cholecalciferol (vitamin D3) 125 125 mcg PO DAILY 07/01/22 02/04/24 History mcg (5,000 unit) capsule elderberry fruit 200 mg capsule 200 mg PO DAILY 07/01/22 02/04/24 History multivitamin 1 tablet PO DAILY 07/01/22 02/04/24 History potassium citrate 10 mEq (1,080 1,080 mg PO BID #60 tabs 12/04/22 02/04/24 Rx mg) tablet,extended release ondansetron 4 mg disintegrating 4 mg PO Q8H PRN nausea and 05/10/23 02/04/24 Rx tablet vomiting #30 tabs hydrocortisone acetate 25 mg 25 mg RECTAL .QHS PRN hemorrhoids 08/19/23 02/04/24 Rx rectal suppository (Anusol-HC) #12 ea levothyroxine 75 mcg tablet 75 mcg PO DAILY #90 tabs 11/18/23 02/04/24 Rx cetirizine 10 mg capsule (All Day 10 mg PO DAILY PRN Allergic 12/06/23 02/04/24 History Allergy (cetirizine)) Symptoms losartan 50 mg tablet 25 mg PO QAM 12/06/23 02/04/24 History omeprazole 20 mg capsule,delayed 20 mg PO DAILY PRN Indigestion 12/06/23 02/04/24 History release sertraline 50 mg tablet 50 mg PO DAILY 12/06/23 02/04/24 History lidocaine 5 % topical patch 1 patch topical DAILY PRN Pain #30 01/10/24 02/04/24 Rx (Lidoderm) ea zolpidem 10 mg tablet 10 mg PO QHS #30 tabs 01/15/24 02/04/24 Rx clarithromycin 500 mg tablet 500 mg PO Q12H 02/01/24 02/04/24 History clobetasol 0.05 % topical ointment 1 applic topical .COMPLEX PRN HIVES 02/01/24 02/04/24 History ketoconazole 2 % shampoo 1 applic topical 2XW PRN HIVES 02/01/24 02/04/24 History Patient hx anesthesia problems: none Family hx anesthesia problems: none Results Review: All pre-operative results and documents have been reviewed as part of the pre-operative evaluation. 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 Effusion of knee joint right Effusion, left knee Esophageal reflux Family history of colon cancer in mother History of breast cancer History of gastric ulcer Hyperlipidemia Hypertension Hypothyroidism IBS (irritable bowel syndrome) Insomnia Kidney stone Left knee DJD Left knee pain Lipids serum increased Low iron Lumbago Nausea Obesity Osteoporosis Pacemaker Peptic ulcer Rash Right knee DJD Right knee pain Screening mammogram, encounter for Ventral hernia Surgical History Surgical History Gastric bypass status for obesity History of colonoscopy History of permanent cardiac pacemaker placement Hx of hysterectomy, total S/P laparoscopic hernia repair Family History Fam
[2024-02-04] MEDS: LACTATED RINGERS 1,000 ML 30 ML IV CONT (08:15)
[2024-02-04] MEDS: ceFAZolin 2 GM/D5W 50 ML 2 GM/50 ML BAG IVPB (08:39)
[2024-02-04] MEDS: ceFAZolin SODIUM 1 GM VIAL (08:56)
[2024-02-04] MEDS: BUPIVACAINE/EPINEPHRINE 0.5% 10 ML VIAL 30 ML INFILTRATE (08:57)
--- NOTE | 2024-02-04 09:19 | W.PM.PROC2 ---
Procedure Note - Detailed Date of Procedure 02/04/24 Pre-op Diagnosis Urge incontinence Post-op Diagnosis Same Procedure Performed Placement of sacral lead, placement of implantable pulse generator, complex neurostimulator programming impedance to Surgeon Colin Saul MD Anesthesia MAC and Local Indications This with urge incontinence. She has had an InterStim device in place since 2000. She has had a battery changed once before. Her new battery is at end of life. She has a 2001 lead. It is a non tined lead. She has impedances on that lead. I am going to place a whole new system. In light of the invasiveness to remove an old non tined lead I am going to leave that in place. She understands risks of bleeding, infection, lack of efficacy. She agrees to proceed Findings Uncomplicated InterStim placement. Old non tined lead left in-situ Description of Procedure She was correctly identified. Informed consent obtained. She is from the operating room. She was given monitored anesthesia care. She was placed in a prone position. Low back and buttock were prepped draped sterile fashion. Time-out performed. I located my sacral landmarks on fluoroscopy. Her old lead was in the right S3. It was lateral in the foramen. On the lateral orientation was pulled back into the foramen. Again I opted to leave the lead in place as it would be significant to try to remove and non tined lead. Under fluoroscopic guidance I entered the left S3 foramen with a foramen needle. I did this on the patient's left. I stimulated the needle got appropriate Balaji and toe response at low threshold. I made a skin sarah. I placed a stylet. I placed a lead introducer sheath. I then placed deployed my lead percutaneously. I again stimulated the lead and got appropriate responses. I anesthetized the skin over the previously placed pulse generator. I incised the skin. I explanted the pulse generator. I un screwed the old lead. I left the old lead in Situ in the pocket. I tunneled the new lead towards this pocket. The generator was programmed. Appropriate connections were made. The pulse generator was placed in the pocket. Impedances were checked and found to be normal. I assured hemostasis. I irrigated all wounds. I closed subcu tissue with 2-0 Vicryl. Skin with 4-0 Vicryl. Glue was applied. She was awakened transferred to PACU in stable condition Implants InterStim implant Estimated Blood Loss 2 Packing No Pathology None sent Complications No immediate complications Condition Stable Disposition PACU
[2024-02-04 09:23] VITALS: BP 126/60; PULSE 77; RESP 14; O2SAT 100
[2024-02-04 09:50] VITALS: BP 113/69; PULSE 66; RESP 16
[2024-02-04 10:05] VITALS: BP 139/77; PULSE 63; RESP 16
== END 2024-02-04 10:10 | disposition home or self-care (01) ==
PROVIDERS: PCP Family Medicine; Visit Provider Urology
PROC: (CPT 64590; principal; 2024-02-04 08:45)
DX: N39.41 Urge incontinence (principal); E78.5 Hyperlipidemia, unspecified; E03.9 Hypothyroidism, unspecified; I10 Essential (primary) hypertension; E66.9 Obesity, unspecified; Z68.31 Body mass index [BMI] 31.0-31.9, adult; M81.0 Age-related osteoporosis without current pathological fracture; F32.A Depression, unspecified; K58.9 Irritable bowel syndrome, unspecified; Z80.0 Family history of malignant neoplasm of digestive organs; Z87.891 Personal history of nicotine dependence
CPT/HCPCS: 64590; 64581; 36415; 85610; 85730; 99199; C1767; C1778; C1787; J0690; J1100; J2405; J2704; J3010; J7120

== ENCOUNTER 2024-04-01 17:05 | Emergency (ER) | payer MEDICARE, SELFPAY ==
--- NOTE | ~2024-04-01 | XR_ITS ---
XR forearm LT 2V Ordering provider: Elysia Britt PA-C History: . pt fell and has large lac on distal/medial forearm . Comparison: None. FINDINGS: BONES: No acute fracture or dislocation. JOINT SPACES: Normal. SOFT TISSUES: Normal. IMPRESSION: No acute osseous abnormality left forearm. Reviewed, dictated and finalized at location A.
[2024-04-01 17:06] VITALS: BP 129/75; PULSE 78; RESP 18; TEMP 37.1; O2SAT 97
[2024-04-01 17:21] VITALS: BP 134/89; PULSE 77; RESP 15; TEMP 36.6; O2SAT 97
[2024-04-01] MEDS: TETANUS,DIPHTHERIA,AC PERTUSSIS ADULT (0.5 ML) BOOSTRIX IM (19:14)
[2024-04-01 19:25] VITALS: BP 132/57; PULSE 67; RESP 14; O2SAT 98
--- NOTE | 2024-04-01 19:27 | ED.WOUNDLAC ---
HPI - Wound/Laceration General Chief Complaint: Wound/Laceration Stated Complaint: fall - forearm lac Time Seen by Provider: 04/01/24 17:31 Source: patient Mode of arrival: ambulatory Limitations: no limitations History of Present Illness HPI narrative: This is a 78 year old female that presents to the ER for a laceration to her left forearm. Reports she fell in the kitchen at about 3AM. She did not hit her head or lose consciousness. Reports she hit her arm on the cabinet. Sustained a laceration. She cleansed and bandaged the area. Presents for evaluation of her wound as she believes she needs stitches. Denies decreased ROM or numbness. Related Data Home Medications Medication Instructions Recorded Confirmed omalizumab 150 mg/mL subcutaneous 150 mg subcut MONTHLY 01/26/20 02/04/24 syringe (Xolair) amitriptyline 10 mg tablet 10 mg PO .QHS 05/08/20 02/04/24 evolocumab 140 mg/mL subcutaneous 140 mg subcut .Q 2 weeks 05/08/20 02/04/24 pen injector (Sree Miramontes) apixaban 5 mg tablet (Eliquis) 5 mg PO BID 10/03/20 02/04/24 hydroxyzine HCl 25 mg tablet 25 mg PO DAILY PRN Itching 10/03/20 02/04/24 cholecalciferol (vitamin D3) 125 125 mcg PO DAILY 07/01/22 02/04/24 mcg (5,000 unit) capsule elderberry fruit 200 mg capsule 200 mg PO DAILY 07/01/22 02/04/24 multivitamin 1 tablet PO DAILY 07/01/22 02/04/24 cetirizine 10 mg capsule (All Day 10 mg PO DAILY PRN Allergic 12/06/23 02/04/24 Allergy (cetirizine)) Symptoms losartan 50 mg tablet 25 mg PO QAM 12/06/23 02/04/24 omeprazole 20 mg capsule,delayed 20 mg PO DAILY PRN Indigestion 12/06/23 02/04/24 release clarithromycin 500 mg tablet 500 mg PO Q12H 02/01/24 02/04/24 clobetasol 0.05 % topical ointment 1 applic topical .COMPLEX PRN HIVES 02/01/24 02/04/24 ketoconazole 2 % shampoo 1 applic topical 2XW PRN HIVES 02/01/24 02/04/24 Allergies Allergy/AdvReac Type Severity Reaction Status Date / Time Penicillins Allergy Severe SWELLING/PUFFINESS/DIFFICULTY Verified 02/22/24 13:19 BREATHING/ALOPECIA ciprofloxacin [From Cipro] Allergy Intermediate Rash Verified 02/22/24 13:19 doxycycline Allergy Intermediate Rash Verified 02/22/24 13:19 ketamine AdvReac Intermediate HALLUCINATI Verified 02/22/24 13:19 ONS Review of Systems Review of Systems: CONSTITUTIONAL: Denies fever SKIN: Reports laceration NEUROLOGIC: Denies numbness All systems reviewed & are unremarkable except as noted in HPI and below PMFSH Past Medical History Medical History Anal fistula Atrial fibrillation Chronic interstitial cystitis Chronic rhinitis CKD (chronic kidney disease) Contusion of urethra Cystitis Depressive disorder Diarrhea 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 Effusion of knee joint right Effusion, left knee Esophageal reflux Family history of colon cancer in mother History of breast cancer History of gastric ulcer Hyperlipidemia Hypertension Hypothyroidism IBS (irritable bowel syndrome) Insomnia Kidney stone Left knee DJD Left knee pain Lipids serum increased Low iron Lumbago Nausea Obesity Osteoporosis Pacemaker Peptic ulcer Rash Right knee DJD Right knee pain Screening mammogram, encounter for Ventral hernia Surgical History Surgical History Gastric bypass status for obesity History of colonoscopy History of permanent cardiac pacemaker placement Hx of hysterectomy, total S/P laparoscopic hernia repair Family History Family History Father Acute myocardial infarction Mother Acute myocardial infarction Mother Cancer of unknown origin Mother Kidney stones Mother Family history of malignant neoplasm Family history of renal failure, Onset Age: 78 Acute myocardial infarction Family history of kidney stones Father Acute myocardial infarction Social Histor
[2024-04-01 20:44] VITALS: BP 134/62; PULSE 88; RESP 15; TEMP 36.8; O2SAT 99
== END 2024-04-01 20:46 | disposition home or self-care (01) ==
PROVIDERS: Emergency Provider Physician Assistant; PCP Family Medicine
DX: S51.812A Laceration without foreign body of left forearm, initial encounter (principal); W18.00XA Striking against unspecified object with subsequent fall, initial encounter; Z23 Encounter for immunization; I48.91 Unspecified atrial fibrillation; I12.9 Hypertensive chronic kidney disease with stage 1 through stage 4 chronic kidney disease, or unspecified chronic kidney disease; Z80.0 Family history of malignant neoplasm of digestive organs; E78.5 Hyperlipidemia, unspecified; E03.9 Hypothyroidism, unspecified; E66.9 Obesity, unspecified; Z68.30 Body mass index [BMI] 30.0-30.9, adult; Z95.0 Presence of cardiac pacemaker; M81.0 Age-related osteoporosis without current pathological fracture; Z98.84 Bariatric surgery status; Z87.891 Personal history of nicotine dependence
CPT/HCPCS: 12002; 73090; 90471; 90715; 99283

== ENCOUNTER 2024-05-29 15:30 | Outpatient (CLI) | payer MEDICARE, SELFPAY ==
[2024-05-29 16:10] LABS: Basophils Percent Auto 0.6 % (0.2-1.2); Eosinophils Absolute Auto 0.2 K/mm3 (0-0.3); Eosinophils Percent Auto 3.6 % (0-4.4); Hematocrit 35.8 % (37.0-47.0); Hemoglobin 11.1 g/dL (12.0-15.0); Immature Granulocyte Absolute 0.02 K/mm3 (0.00-0.031); Immature Granulocyte Percent A 0.4 % (0-0.5); Lymphocytes Percent Auto 13.9 % (18.3-44.2); Mean Corpuscular Hemoglobin 28.2 pg (26-34); Mean Corpuscular Volume 91.1 fl (80-100); Mean Platelet Volume 9.3 fl (7.4-10.4); Monocytes Absolute Auto 0.5 K/mm3 (0.1-0.6); Neutrophils Absolute Auto 3.6 K/mm3 (1.3-6.7); Neutrophils Percent Auto 71.5 % (45.5-73.1); Platelet Count Result 204 k/mm3 (150-375); Red Blood Count 3.93 M/mm3 (4.2-5.4); Red Cell Distribution Width 14.8 % (11.5-14.5)
[2024-05-29 17:09] LABS: Alanine Aminotransferase 17 U/L (6-35); Albumin Level 3.7 g/dL (3.5-5.1); Alkaline Phosphatase 84 U/L (38-126); Aspartate Amino Transferase 34 U/L (14-36); Bilirubin,Total 0.4 mg/dL (0.2-1.3); Blood Urea Nitrogen 19 mg/dL (7-17); Calcium 9.3 mg/dL (8.4-10.2); Chloride 109 mmol/L (98-107); Estimated Glomerular Filt Rate 34; Glucose 79 mg/dL (65-110); Potassium 3.6 mmol/L (3.4-5.0); Sodium 139 mmol/L (137-145)
[2024-05-29 17:52] LABS: Anion Gap 4 mmol/L (4-12); Carbon Dioxide 26 mmol/L (22-30)
[2024-05-31 02:49] LABS: CA 15-3 14 U/mL (<32)
== END 2024-05-29 15:31 | disposition home or self-care (01) ==
LOC: ANHLAB 15:31
PROVIDERS: PCP Family Medicine; Visit Provider Internal Medicine Hematology & Oncology
DX: C50.919 Malignant neoplasm of unspecified site of unspecified female breast (principal); Z17.0 Estrogen receptor positive status [ER+]
CPT/HCPCS: 36415; 80053; 85025; 86300

== ENCOUNTER 2024-09-07 12:31 | Outpatient (CLI) | payer MEDICARE, SELFPAY ==
--- NOTE | ~2024-09-07 | XR_ITS ---
XR abdomen/kub 1V Ordering provider: Colin Saul MD History: . rt renal stone . Comparison: September 03, 2023 FINDINGS: BOWEL: Nonobstructive bowel gas pattern. ORGANOMEGALY: None. SIGNIFICANT PATHOLOGIC CALCIFICATIONS: None. OTHER: No free air is seen under the diaphragm. Postoperative changes seen in the anterior abdominal wall. Degenerative changes of the spine. Right s aminah stimulator. IMPRESSION: NO ACUTE ABDOMINAL FINDINGS. Reviewed, dictated and finalized at location A.
--- OUTSIDE RECORDS SUMMARY | 2024-09-07 13:19 | XMS_ITS | CONTINUITY OF CARE DOCUMENT ---
Author Name reena, reena Address Unknown Organization [facility] Address [address] [place] [address] Phone [phone] Care Team Providers Care Director Of Industrial Relations Name Role Phone Brenna CELIS, Dickson Unavailable DORINA CELIS, KARYN Unavailable [phone] DORINA CELIS, KARYN Unavailable [phone] PROBLEMS Condition Status Date Provider Notes Examination, preoperative cardiovascular active Ryder Mejias RN Malabsorption active Katya Calvillo Pacemaker-Dual 9MRI safe) - Biotronik active Maciel Brumfield Coumadin therapy active Ryder Donald RN Implantable Loop Recorder-Medtronic active Maciel Brumfield Diastolic CHF active Alexandru Colon MD Iron deficiency anemia active Katya kahn Urinary tract infection, acute active Katya Calvillo CYSTITIS, CHRONIC active Jennifer Lawson RECTAL PROLAPSE active Jennifer Lawson HYPERLIPIDEMIA active Jennifer Lawson Syncope active Alexandru Colon MD CORONARY ARTERY DISEASE, FAMILY HX completed - Alexandru Colon MD CAD active Alexandru Colon MD CHEST PAIN-03/23 CATH NO FLOW LIMITING LESION EF 60 completed - Alexandru Colon MD ABDOMINAL PAIN-05/24 ABD US NEG active ? Ryder Donald RN HTN ESSENTIAL-05/24 DIXIE DUP NEG active ? Ryder Donald RN Family History Coronary Heart Disease male < 55: completed - Alexandru Colon MD Family History of Sudden Cardiac : completed - Alexandru Colon MD Family History Coronary Heart Disease male < 55: completed - Alexandru Colon MD Family History of Sudden Cardiac : completed - Alexandru Colon MD Fluid retention active Dickson Ceja MD FAMILY HISTORY OF HEART DISEASE active Alexandru Colon MD MANY WITH STETN S AND CVA Tobacco use, quit active Alexandru Colon MD T OO REMOTE TO [facility] VITAMIN D DEFICIENCY;on rx active Alexandru rosado MD Palpitations active Dickson Ceja MD Ventricular tachycardia active Richard Young SVT active Richard Young Sick sinus syndrome active Dickson Ceja MD Pacemaker: active ? Dicksno Ceja MD (Status post) Atrial fib, paroxysmal active Dickson Ceja MD Shortness of breath (SOB) active Dickson villalba MD ENCOUNTERS Date Type Provider Location Encounter Diag nosis - In-person encounter Office Visit Dickson Ceja MD [place] [facility] - In-person encounter Office Visit Dickson Ceja MD [place] [facility] - In-person encounter Office Visit Dickson Ceja MD [place] [facility] - In-person encounter Office Visit Dickson Ceja MD [place] [facility] - In-person encounter Office Visit Dickson Ceja MD [place] [facility] - In-person encounter Office Visit Dickson Ceja MD [place] [facility] - In-person encounter Office Visit Dickson Ceja MD [place] [facility] Shortness of breath (SOB) - In-person encounter Office Visit Dickson Ceja MD [facility] [place] [facility] - In-person encounter Office Visit Dickson Ceja MD [place] [facility] - In-person encounter Office Visit Dickson Ceja MD [place] [facility] - In-person encounter Office Visit Dickson Ceja MD [facility] [place] [facility] - In-person encounter Office Visit Dicskon Ceja MD [place] [facility] Atrial fib, paroxysmal - In-person encounter Office Visit Martha Palmer MD [facility] [place] [facility] - In-person encounter Office Visit Dickson Ceja MD [place] [facility] Pacemaker: - In-person encounter Office Visit Dickson Ceja MD [facility] Sick sinus syndrome - In-person encounter Office Visit Tg Noel MD [place] [facility] Ventricular tachycardiaSVT - In-person encounter Office Visit Dickson Ceja MD [place] [facility] Palpitations - In-person encounter Office Visit Alexandru Colon MD [place] [facility] SyncopeCORONARY ARTERY DISEASE, FAMILY HXCADCHEST PAIN-03/23 CATH NO FLOW LIMITING LESION EF 60Family History Coronary Heart Disease male < 55:Family History of Sudden Cardiac :Family History Coronary Heart Disease male < 55:Family History of Sudden Cardiac :FAMILY HISTORY OF HEART DISEASETobacco use, quitVITAMIN D DEFICIENCY;on rx - In-person encounter Office Visit Dickson Ceja MD [place] [facility] Fluid retention - In-person encounter Office Visit Dickson Ceja MD [place] [facility] - In-person encounter Office Visit Dickson Ceja MD [place] [facility] - In-person encounter Office Visit Dickson Ceja MD [place] [facility] - In-person encounter Office Visit Dickson [facility] - In-person encounter Office Visit Dickson Ceja MD [place] [facility] - In-person encounter Office Visit Dickson Ceja MD [place] [facility] - In-person encounter Office Visit Dickson Ceja MD [place] [facility] ABDOMINAL PAIN-05/24 ABD US NEGHTN ESSENTIAL-05/24 DIXIE DUP NEG - In-person encounter Office Visit Dickson Ceja MD [facility] [place] [facility] - In-person encounter Office Visit Dickson Ceja MD [place] [facility] CHEST PAIN-03/23 CATH NO FLOW LIMITING LESION EF 60 VITAL SIGNS Date Observation Value Provider Body Mass Index (Ratio) 29.01 kg/m2 Quintin Ceja MD blood pressure, cuff size regular [facility]el [facility] blood [facility], diastolic 80 mm[Hg] Rogelio rri [facility] blood [facility], systolic 146 mm[Hg] Abdi [facility] oxygen saturation, oximetry 98 % Dorothy Quiroz respiratory rate E&M 12 /min [facility] pulse rate 70 /min Dorothy Moreno [facility] weight E&M 169 [lb_av] Dorothy Moreno [facility] height E&M 64 [in_i] Dorothy Moreno [facility] Body Mass Index (Ratio) 28.83 kg/m2 Quintin Cjea MD blood pressure, cuff size regular Ja rret blood pressure, diastolic 75 mm[Hg] Ja rret blood pressure, systolic 104 mm[Hg] Jar ret pulse rate 79 /min Dom respiratory rate E&M 12 /min Dom oxygen saturation, oximetry 96 % Dom weight E&M 168 [lb_av] Dom y height E&M 64 [in_i] Dom y Body Mass Index (Ratio) 28.66 kg/m2 Quintin Ceja MD blood pressure, cuff size regular Ja mara blood pressure, diastolic 72 mm[Hg] Jose mara blood pressure, systolic 104 mm[Hg] Jami herman pulse rate 79 /min Dom y oxygen saturation, oximetry 96 % Dom respiratory rate E&M 12 /min Dom weight E&M 167 [lb_av] Dom y height E&M 64 [in_i] Dom y Body Mass Index (Ratio) 27.80 kg/m2 Quintin Ceja MD blood pressure, diastolic 92 mm[Hg] mason Rhodes blood pressure, systolic 138 mm[Hg] [facility] grant Rhodes pulse rate 72 /min Omaira Rhodes respiratory rate E&M 20 /min Omaira Rhodes oxygen saturation, oximetry 98 % Omairamerle Rhodes blood pressure, cuff size regular mason Rhodes weight E&M 162 [lb_av] Omaira Rhodes height E&M 64 [in_i] Omaira Rhodes Body Mass Index (Ratio) 29.35 kg/m2 Quintin Ceja MD oxygen saturation, oximetry 95 % Roula Sutton blood pressure, diastolic 92 mm[Hg] St colette Sutton blood pressure, systolic 134 mm[Hg] Carla Sutton pulse rate 72 /min Roula Sutton respiratory rate E&M 16 /min Roulaisadora munson weight E&M 171 [lb_av] Roula Herman height E&M 64 [in_i] Roula Herman blood pressure, diastolic 88 mm[Hg] Geovanna Willoughby blood pressure, systolic 132 mm[Hg] Fe Willoughby oxygen saturation, oximetry 97 % Nhi Willoughby respiratory rate E&M 18 /min Dick Willoughby pulse rate 77 /min Nhi kahn Body Mass Index (Ratio) 31.58 kg/m2 Gasper Willoughby weight in kilograms E&M 83.46 kg Gasper Willoughby weight E&M 184 [lb_av] Nhi kahn blood pressure, cuff size regular Geovanna Willoughby height E&M 64 [in_i] Nhi kahn height in centimeters E&M 162.56 cm Geovanna Willoughby Body Mass Index (Ratio) 31.58 kg/m2 Quintin Ceja MD blood pressure, cuff size large Ai Terrell blood pressure, diastolic 80 mm[Hg] Ai Terrell blood pressure, systolic 130 mm[Hg] [facility] freddy Terrell oxygen saturation, oximetry 97 % Nasrin Terrell respiratory rate E&M 16 /min Lesia Terrell pulse rate 76 /min Nasrin alfonso weight E&M 184 [lb_av] Nasrin alfonso height E&M 64 [in_i] Nasrin alfonso Body Mass Index (Ratio) 30.55 kg/m2 Quintin Ceja MD blood pressure, diastolic 80 mm[Hg] Ehsan Rendon blood pressure, systolic 121 mm[Hg] Rho nda Julieta blood pressure, cuff size regular Rh onjeannine Julieta oxygen saturation, oximetry 98 % Ludivina Julieta respiratory rate E&M 18 /min Ludivina Julieta pulse rate 78 /min Ludivina Julieta blood pressure, resting Yes Clive paez Julieta weight E&M 178 [lb_av] Ludivina Julieta height E&M 64 [in_i] Ludivina Julieta Body Mass Index (Ratio) 33.19 kg/m2 Quintin Ceja MD blood pressure, diastolic 87 mm[Hg] Gilson Davis Bhatt blood pressure, systolic 163 mm[Hg] Maddie Bhatt oxygen saturation, oximetry 94 % Radha Bhatt respiratory rate E&M 20 /min Olu Bhatt pulse rate 83 /min Radha espinoza weight E&M 193.4 [lb_av] Radha Holden enson height E&M 64 [in_i] Radha Butt marypayam Body Mass Index (Ratio) 32.27 kg/m2 Quintin Ceja MD pulse rate 70 /min Jessica grimm oxygen saturation, oximetry 93 % Jessica Raymond respiratory rate E&M 16 /min Jessica Raymond blood pressure, cuff size regular Cy doug Raymond blood pressure, diastolic 80 mm[Hg] Cy doug Raymond blood pressure, systolic 130 mm[Hg] Milly renae Raymond weight E&M 188 [lb_av] Jessica Davidbel l height E&M 64 [in_i] Jessica Campbel l Body Mass Index (Ratio) 32.61 kg/m2 Quintin Ceja MD blood pressure, cuff size regular Cr hortensia Barakat blood pressure, diastolic 80 mm[Hg] Cr hortensia Barakat blood pressure, systolic 130 mm[Hg] Cry maria elena Barakat oxygen saturation, oximetry 98 % Kendal Barakat respiratory rate E&M 17 /min Kendal Barakat pulse rate 71 /min Kendal garcia weight E&M 190 [lb_av] Kendal garcia height E&M 64 [in_i] Kendal Galeas s Body Mass Index (Ratio) 31.92 kg/m2 Quintin Ceja MD blood pressure, diastolic 84 mm[Hg] Da simon Ronda blood pressure, systolic 142 mm[Hg] Dac ia Ronda oxygen saturation, oximetry 98 % Venecia Ronda respiratory rate E&M 16 /min Venecia V oss pulse rate 60 /min Venecia Ronda weight E&M 186 [lb_av] Venecia Ronda height E&M 64 [in_i] Venecia Ronda Body Mass Index (Ratio) 32.09 kg/m2 Adali ica N Rajinder blood pressure, cuff size regular Je ssica N Rajinder blood pressure, diastolic 80 mm[Hg] Je ssica N Rajinder blood pressure, systolic 140 mm[Hg] Akosua law N Rajinder oxygen saturation, oximetry 95 % Katya N Rajinder respiratory rate E&M 18 /min Katya N Rajinder pulse rate 60 /min Katya N Wilso n weight E&M 187 [lb_av] Katya N Wilso n Body Mass Index (Ratio) 32.16 kg/m2 Adali ica N Rajinder blood pressure, cuff size regular Je ssica N Rajinder blood pressure, diastolic 70 mm[Hg] Je ssica N Rajinder blood pressure, systolic 120 mm[Hg] Akosua law N Rajinder oxygen saturation, oximetry 95 % Katya Juanito Rajinder respiratory rate E&M 18 /min Katya Juanito Rajinder pulse rate 76 /min Katya Juanito Gonzalez n weight E&M 187.4 [lb_av] Katya Leon on Body Mass Index (Ratio) 31.92 kg/m2 Janelle Palmer MD blood pressure, diastolic 90 mm[Hg] [facility], [facility] 140 mm[Hg] Steffanie cerda [place] oxygen saturation, oximetry 93 % [facility] rate E&M 16 /min Carlota Flanagan pulse rate 67 /min Carlota Flanagan weight E&M 186 [lb_av] Crosby Flanagan height E&M 64 [in_i] Carlota Flanagan Body Mass Index (Ratio) 31.92 kg/m2 Quintin Ceja MD blood pressure, diastolic 78 mm[Hg] Gilson Bhatt blood pressure, systolic 148 mm[Hg] Maddie Bhatt oxygen saturation, oximetry 98 % Radha Bhatt respiratory rate E&M 18 /min Olu Bhatt pulse rate 64 /min Radha Butt payam weight E&M 186 [lb_av] Radha Butt [facility] height E&M 64 [in_i] Radha Butt [facility] Body Mass Index (Ratio) 32.44 kg/m2 Quintin Ceja MD blood pressure, diastolic 80 mm[Hg] Louis lleen Flanagan blood pressure, systolic 130 mm[Hg] Steffanie ropern Flanagan oxygen saturation, oximetry 98 % [facility] rate E&M 16 /min Crosby Flanagan pulse rate 57 /min Carlota Flanagan weight E&M 189 [lb_av] Carlota Flanagan height E&M 64 [in_i] Crosby Flanagan Body Mass Index (Ratio) 32.78 kg/m2 Jon melgar Hector blood pressure, diastolic 76 mm[Hg] Da simon Ronda blood pressure, systolic 118 mm[Hg] Dac ia Ronda oxygen saturation, oximetry 95 % Venecia Ronda respiratory rate E&M 16 /min Venecia V oss pulse rate 58 /min Venecia Ronda weight E&M 191 [lb_av] Venecia Ronda height E&M 64 [in_i] Venecia Ronda Body Mass Index (Ratio) 32.13 kg/m2 Quintin Ceja MD blood pressure, diastolic 84 mm[Hg] Gilson Adamsjuanito Bhatt blood pressure, systolic 129 mm[Hg] Maddie Holdenenson oxygen saturation, oximetry 97 % Radha Bhatt respiratory rate E&M 18 /min Olu Holdenenson pulse rate 73 /min Radha uBtt nson weight E&M 187.2 [lb_av] Radha hesteron height E&M 64 [in_i] Radha Butt nson Body Mass Index (Ratio) 33.12 kg/m2 Melissa Colon MD blood pressure, osullivan tolic, second observation 81 mm[Hg] Alexandru Colon MD blood pressure, syst olic, second observation 154 mm[Hg] Alexandru Colon MD blood pressure, diastolic 80 mm[Hg] Ki miracle Flanagan blood pressure, systolic 140 mm[Hg] Steffanie cerda Flanagan oxygen saturation, oximetry 98 % Carlota Flanagan respiratory rate E&M 16 /min Carlota Flanagan pulse rate 67 /min Crosby Flanagan weight E&M 193 [lb_av] Crosby Flanagan height E&M 64 [in_i] Carlota Flanagan Body Mass Index (Ratio) 32.78 kg/m2 Quintin Ceja MD blood pressure, diastolic 82 mm[Hg] Da simon Ronda blood pressure, systolic 128 mm[Hg] Dac ia Ronda oxygen saturation, oximetry 96 % Venecia Ronda respiratory rate E&M 16 /min Venecia V oss pulse rate 69 /min Venecia Ronda weight E&M 191 [lb_av] Venecia Ronda height E&M 64 [in_i] Venecia Ronda Body Mass Index (Ratio) 33.23 kg/m2 Adali ica N Rajinder blood pressure, cuff size regular Je ssica N Rajnider blood pressure, diastolic 60 mm[Hg] Je ssica N Rajinder blood pressure, systolic 118 mm[Hg] Akosua law N Rajinder oxygen saturation, oximetry 98 % Katya N Rajinder respiratory rate E&M 18 /min Katya N Rajinder pulse rate 70 /min Katya N Wilso n weight E&M 193.6 [lb_av] Katya N Wils on Body Mass Index (Ratio) 33.23 kg/m2 Adali ica N Rajinder blood pressure, cuff size regular Je ssica N Rajinder blood pressure, diastolic 80 mm[Hg] Je ssica N Rajinder blood pressure, systolic 120 mm[Hg] Akosua law N Rajinder oxygen saturation, oximetry 98 % Katya N Rajinder respiratory rate E&M 18 /min Katya N Rajinder pulse rate 59 /min Katya N Wilso n weight E&M 193.6 [lb_av] Katya N Wils on Body Mass Index (Ratio) 31.96 kg/m2 Quintin Ceja MD blood pressure, resting Yes Sherley Bhatt blood pressure, diastolic 66 mm[Hg] Gilson Bhatt blood pressure, systolic 106 mm[Hg] Maddie Bhatt oxygen saturation, oximetry 92 % Radha Bhatt respiratory rate E&M 18 /min Olu Bhatt pulse rate 66 /min Radha espinoza weight E&M 186.2 [lb_av] Radha payne height E&M 64 [in_i] Radha Butt maryon blood pressure, diastolic 75 mm[Hg] Rogelio joel Ahumada blood pressure, systolic 124 mm[Hg] Abdi Ahumada pulse rate 58 /min Dorothy yooner oxygen saturation, oximetry 95 % Dorothy Ahumada respiratory rate E&M 16 /min Dorothy vaughan Body Mass Index (Ratio) 33.30 kg/m2 Weinberg silva Ahumada weight E&M 194 [lb_av] Dorothy Moreno er Body Mass Index (Ratio) 33.30 kg/m2 Noelle del castillo Marti blood pressure, diastolic 84 mm[Hg] Wy eri Marti blood pressure, systolic 131 mm[Hg] Radha nelsona Marti pulse rate 60 /min Ashlee Marti oxygen saturation, oximetry 99 % Ashlee Marti respiratory rate E&M 15 /min Ashlee Marti weight E&M 194 [lb_av] Ashlee Marti blood pressure, diastolic, left arm 70 mm [Hg] Elaina Stueber blood pressure, systolic, left arm 130 mm [Hg] Elaina Stueber blood pressure, diastolic, right arm 76 m m[Hg] Elaina Stueber blood pressure, systolic, right arm 128 m m[Hg] Elaina Kenneyueber Body Mass Index (Ratio) 32.49 kg/m2 Sheela Kenneyueber blood pressure, diastolic 70 mm[Hg] Luis Daniel salmeron Stueber blood pressure, systolic 130 mm[Hg] Merrick Roach pulse rate 63 /min Elaina Kenneyueber oxygen saturation, oximetry 97 % Elaina Carpenterber respiratory rate E&M 16 /min Elaina cruz weight E&M 188.6 [lb_av] Elaina Marley blood pressure, diastolic 63 mm[Hg] Jose Donald RN blood pressure, systolic 103 mm[Hg] Ryder Donald RN pulse rate 62 /min Ryder Donald RN oxygen saturation, oximetry 100 % Ryder Donald RN respiratory rate E&M 16 /min Ryder thomas RN Body Mass Index (Ratio) 34.28 kg/m2 Ryder Donald RN weight E&M 199 [lb_av] Ryder Donald RN height E&M 64 [in_i] Ryder Donald RN blood pressure, diastolic 60 mm[Hg] Murphy blood pressure, systolic 124 mm[Hg] Aayush Mckenzie pulse rate 71 /min Natividad Mckenzie oxygen saturation, oximetry 99 % Natividad Mckenzie respiratory rate E&M 16 /min Natividad Mckenzie weight E&M 191 [lb_av] Natividad Mckenzie blood pressure, diastolic 68 mm[Hg] Arlene riggs [place] blood pressure, systolic 118 mm[Hg] Jj villanueva [place] pulse rate 68 /min Erick [place] oxygen saturation, oximetry 98 % Erick [place] respiratory rate E&M 16 /min Erick [place] weight E&M 193 [lb_av] Erick Beaulieuchava blood pressure, diastolic, left arm 90 mm [Hg] Tete Georgeamanda RIGGINS blood pressure, systolic, left arm 147 mm [Hg] Tete De Leonjuanito MA blood pressure, diastolic, right arm 91 m m[Hg] Tete De Leonjuanito MA blood pressure, systolic, right arm 151 m m[Hg] Tete De Leonjuanito GILSON blood pressure, diastolic 91 mm[Hg] Yanet Starkey MA blood pressure, systolic 151 mm[Hg] Jia Georgeamanda RIGGINS pulse rate 53 /min Hiroangel George rn, [place] oxygen saturation, oximetry 98 % Tete De Leonjuanito RIGGINS respiratory rate E&M 16 /min Tete Georgeamanda RIGGINS weight E&M 209 [lb_av] Tete George rn, [place] blood pressure, diastolic, left arm 89 mm [Hg] Ryder Donald RN blood pressure, systolic, left arm 157 mm [Hg] Ryder Donald RN blood pressure, diastolic, right arm 97 m m[Hg] Ryder Donald RN blood pressure, systolic, right arm 149 m m[Hg] Ryder Donald RN blood pressure, diastolic 97 mm[Hg] Jose Donald RN blood pressure, systolic 149 mm[Hg] Ryder Donald RN pulse rate 61 /min Ryder Donald RN oxygen saturation, oximetry 98 % Ryder Donald RN respiratory rate E&M 20 /min Ryder thomas RN weight E&M 222.5 [lb_av] Ryder Donald RN ALLERGIES Allergy Name Onset Date Reaction Criticality Status CATAMINE High Criticality suspende d PCN High Criticality suspende d STATIN statins intolerant Low Criticality a ctive PCN Low Criticality active RESULTS Date Observation Value Provider Reference Range Interpretation Location pro brain natriuretic peptide 317 pg/mL [facility] 0-738 lipoprotein, beta, serum, point, quantitative, calculated 85 mg/dL [facility] 0-99 HDL cholesterol, serum 74 mg/dL [facility] >39 triglyceride, serum, random 98 mg/dL [facility] 0-149 cholesterol, serum 177 mg/dL [facility] [phone]/02 /03 calcium, serum 8.6 mg/dL [facility] 8.7-10.3 Low carbon dioxide, venous blood 24 mmol/L [facility] 20-29 chloride, serum 108 mmol/L [facility] 96-106 High potassium, serum 4.2 mmol/L [facility] 3.5-5.2 sodium, serum 143 mmol/L [facility] [phone]/02 /03 urea nitrogen/creatinine ratio, serum 15 [facility] 12-28 creatinine, serum 1.29 mg/dL [facility] 0.57-1.00 High urea nitrogen, blood 19 mg/dL [facility] 8-27 blood glucose, random 79 mg/dL [facility] 70-99 basophil count, absolute 0.1 x10E3/uL [facility] 0.0-0.2 Eosinophil Absolute Count 0.3 X10E3/UL [facility] 0.0-0.4 monocyte count, blood, automated 0.4 X10E3/UL [facility] 0.1-0.9 lymphocyte count, blood, automated 1.1 X10E3/UL [facility] 0.7-3.1 Absolute Neutrophils 2.5 X10E3/UL [facility] 1.4-7.0 basophils as percent of blood leukocytes 1 % [facility] Not Estab. eosinophils as percent of blood leukocytes 6 % [facility] Not Estab. monocytes as percent of blood leukocytes 10 % [facility] Not Estab. lymphocytes as percent of blood leukocytes 26 % [facility] Not Estab. neutrophils as percent of blood leukocytes 57 % [facility] Not Estab. platelet count 288 X10E3/UL [facility] [phone]/02 /03 red blood cell distribution width 13.3 % [facility] 11.7-15.4 mean corpuscular hemoglobin concentration, RBC 33.0 G/DL [facility] 31.5-35.7 mean corpuscular hemoglobin, RBC 28.7 pg [facility] 26.6-33.0 mean corpuscular volume, RBC 87 fL [facility] 79-97 hematocrit, blood 35.5 % [facility] 34.0-46.6 hemoglobin, blood 11.7 g/dL [facility] 11.1-15.9 erythrocyte (RBC) count 4.08 X10E6/UL [facility] 3.77-5.28 leukocyte count, blood 4.4 X10E3/UL [facility] 3.4-10.8 B-12, serum 405 pg/mL [facility] [phone] ferritin, serum 590 ng/[facility] High free thyroxine index 4.7 [facility] 1.2-4.9 triiodothyronine resin uptake 34 % [facility] 24-39 thyroxine, serum, total 13.8 ug/dL [facility] 4.5-12.0 High iron saturation percent, serum 17 % [facility] 15-55 iron, serum 45 ug/dL [facility] 27-139 iron binding capacity, unsaturated 223 ug/dL [facility] [phone]/03 /12 iron binding capacity, total 268 ug/dL [facility] [phone]/03 /12 lipoprotein, beta, serum, point, quantitative, calculated 72 mg/dL [facility] 0-99 HDL cholesterol, serum 99 mg/dL [facility] >39 triglyceride, serum, random 86 mg/dL [facility] 0-149 cholesterol, serum 186 mg/dL [facility] [phone]/03 /12 basophil count, absolute 0.1 x10E3/uL [facility] 0.0-0.2 Eosinophil Absolute Count 0.2 X10E3/UL [facility] 0.0-0.4 monocyte count, blood, automated 0.5 X10E3/UL [facility] 0.1-0.9 lymphocyte count, blood, automated 0.8 X10E3/UL [facility] 0.7-3.1 Absolute Neutrophils 5.5 X10E3/UL [facility] 1.4-7.0 basophils as percent of blood leukocytes 1 % [facility] Not Estab. eosinophils as percent of blood leukocytes 3 % [facility] Not Estab. monocytes as percent of blood leukocytes 7 % [facility] Not Estab. lymphocytes as percent of blood leukocytes 12 % [facility] Not Estab. neutrophils as percent of blood leukocytes 77 % [facility] Not Estab. platelet count 301 X10E3/UL [facility] [phone]/03 /12 red blood cell distribution width 12.8 % [facility] 11.7-15.4 mean corpuscular hemoglobin concentration, RBC 32.4 G/DL [facility] 31.5-35.7 mean corpuscular hemoglobin, RBC 29.5 pg [facility] 26.6-33.0 mean corpuscular volume, RBC 91 fL [facility] 79-97 hematocrit, blood 37.6 % [facility] 34.0-46.6 hemoglobin, blood 12.2 g/dL [facility] 11.1-15.9 erythrocyte (RBC) count 4.13 X10E6/UL [facility] 3.77-5.28 leukocyte count, blood 7.2 X10E3/UL [facility] 3.4-10.8 calcium, serum 8.9 mg/dL [facility] 8.7-10.3 carbon dioxide, venous blood 26 mmol/L [facility] 20-29 chloride, serum 106 mmol/L [facility] 96-106 potassium, serum 4.0 mmol/L [facility] 3.5-5.2 sodium, serum 145 mmol/L [facility] 134-144 High urea nitrogen/creatinine ratio, serum 14 [facility] 12-28 eGFR if 61 mL/min/{1.73 _m2} [facility] >59 eGFR if not 53 mL/min/{1.73 _m2} [facility] >59 Low creatinine, serum 1.05 mg/dL [facility] 0.57-1.00 High urea nitrogen, blood 15 mg/dL [facility] 8-27 blood glucose, random 88 mg/dL [facility] 65-99 activated partial thromboplastin time (aPTT) 26 s [facility] 24-33 prothrombin time (patient) 10.7 s [facility] 9.1-12.0 international normalized ratio (INR) 1.0 [facility] 0.8-1.2 bacteria, urine microscopy Few [facility] None seen/Few Crystal Type, Urine Calcium Oxalate [facility] N/A cast type, urinalysis Hyaline casts [facility] N/A hyaline casts, urine Present [facility] None seen Abnormal epithelial cells, urine 0-10 [facility] 0 - 10 RBC, Urine 0-2 /hpf [facility] 0 - 2 WBC urine on microscopy 0-5 /hpf [facility] 0 - 5 urinalysis, microscopic examination See report [facility] nitrate, urine Negative [facility] Negative urobilinogen, urine, semiquantitative (dipstick) 0.2 [facility] 0.2-1.0 bilirubin, urine Negative [facility] Negative hemoglobin, urine, by dipstick Negative [facility] Negative ketones, urine, by test strip Negative [facility] Negative glucose, urine Negative [facility] Negative protein, urine, semiquantitative (dipstick) Negative [facility] Negative/Tr clive leukocyte esterase, urine, by dipstick Negative [facility] Negative appearance, urine Clear [facility] Clear urine color Yellow [facility] Yellow pH, urine, semiquantitative 5.0 [facility] 5.0-7.5 specific gravity, body fluid 1.021 [facility] 1.005-1.030 basophil count, absolute 0.0 x10E3/uL [facility] 0.0-0.2 Eosinophil Absolute Count 0.1 X10E3/UL [facility] 0.0-0.4 monocyte count, blood, automated 0.3 X10E3/UL [facility] 0.1-0.9 lymphocyte count, blood, automated 1.0 X10E3/UL [facility] 0.7-3.1 Absolute Neutrophils 2.4 X10E3/UL [facility] 1.4-7.0 basophils as percent of blood leukocytes 1 % [facility] Not Estab. eosinophils as percent of blood leukocytes 3 % [facility] Not Estab. monocytes as percent of blood leukocytes 8 % [facility] Not Estab. lymphocytes as percent of blood leukocytes 26 % [facility] Not Estab. neutrophils as percent of blood leukocytes 62 % [facility] Not Estab. platelet count 231 X10E3/UL [facility] 650-286 0273/10 /23 red blood cell distribution width 13.7 % [facility] 12.3-15.4 mean corpuscular hemoglobin concentration, RBC 33.5 G/DL [facility] 31.5-35.7 mean corpuscular hemoglobin, RBC 29.4 pg [facility] 26.6-33.0 mean corpuscular volume, RBC 88 fL [facility] 79-97 hematocrit, blood 34.6 % [facility] 34.0-46.6 hemoglobin, blood 11.6 g/dL [facility] 11.1-15.9 erythrocyte (RBC) count 3.94 X10E6/UL [facility] 3.77-5.28 leukocyte count, blood 3.9 X10E3/UL [facility] 3.4-10.8 ferritin, serum 583 ng/mL [facility] 15-150 High B-12, serum 830 pg/mL [facility] 232-1245 magnesium, serum 2.0 mg/dL [facility] 1.6-2.3 iron saturation percent, serum 34 % [facility] 15-55 iron, serum 81 ug/dL [facility] 27-139 iron binding capacity, unsaturated 157 ug/dL [facility] 072-128 8982/09 /11 iron binding capacity, total 238 ug/dL [facility] 250-450 Low alanine aminotransferase (SGPT), serum 19 1/L [facility] 0-32 aspartate aminotransferase (SGOT), serum 24 1/L [facility] 0-40 alkaline phosphatase, serum 79 1/L [facility] 39-117 bilirubin, serum, total <0.2 mg/dL [facility] 0.0-1.2 albumin/globulin ratio, serum 1.9 [facility] 1.2-2.2 globulin, serum 2.3 [facility] 1.5-4.5 albumin, serum 4.3 g/dL [facility] 3.5-4.8 protein, total, serum 6.6 g/dL [facility] 6.0-8.5 calcium, serum 9.1 mg/dL [facility] 8.7-10.3 carbon dioxide, venous blood 23 mmol/L [facility] 20-29 chloride, serum 110 mmol/L [facility] 96-106 High potassium, serum 4.6 mmol/L [facility] 3.5-5.2 sodium, serum 145 mmol/L [facility] 134-144 High urea nitrogen/creatinine ratio, serum 15 [facility] 12-28 eGFR if 52 mL/min/{1.73 _m2} [facility] >59 Low eGFR if not 45 mL/min/{1.73 _m2} [facility] >59 Low creatinine, serum 1.20 mg/dL [facility] 0.57-1.00 High urea nitrogen, blood 18 mg/dL [facility] 8-27 blood glucose, random 82 mg/dL [facility] 65-99 basophil count, absolute 0.0 x10E3/uL [facility] 0.0-0.2 Eosinophil Absolute Count 0.2 X10E3/UL [facility] 0.0-0.4 monocyte count, blood, automated 0.4 X10E3/UL [facility] 0.1-0.9 lymphocyte count, blood, automated 1.0 X10E3/UL [facility] 0.7-3.1 Absolute Neutrophils 2.9 X10E3/UL [facility] 1.4-7.0 basophils as percent of blood leukocytes 1 % [facility] Not Estab. eosinophils as percent of blood leukocytes 3 % [facility] Not Estab. monocytes as percent of blood leukocytes 9 % [facility] Not Estab. lymphocytes as percent of blood leukocytes 22 % [facility] Not Estab. neutrophils as percent of blood leukocytes 65 % [facility] Not Estab. platelet count 266 X10E3/UL [facility] 930-909 1398/09 /11 red blood cell distribution width 13.2 % [facility] 12.3-15.4 mean corpuscular hemoglobin concentration, RBC 33.6 G/DL [facility] 31.5-35.7 mean corpuscular hemoglobin, RBC 29.9 pg [facility] 26.6-33.0 mean corpuscular volume, RBC 89 fL [facility] 79-97 hematocrit, blood 36.9 % [facility] 34.0-46.6 hemoglobin, blood 12.4 g/dL [facility] 11.1-15.9 erythrocyte (RBC) count 4.15 X10E6/UL [facility] 3.77-5.28 leukocyte count, blood 4.5 X10E3/UL [facility] 3.4-10.8 thyroid stimulating hormone, serum 17.450 u[IU]/mL [facility] 0.450-4.500 High lipoprotein, beta, serum, point, quantitative, calculated 48 mg/dL [facility] 0-99 very low density lipoproteins 26 mg/dL [facility] 5-40 HDL cholesterol, serum 83 mg/dL [facility] >39 triglyceride, serum, random 130 mg/dL [facility] 0-149 cholesterol, serum 157 mg/dL [facility] 074-521 2803/07 /31 calcium, serum 8.9 mg/dL [facility] 8.7-10.3 carbon dioxide, venous blood 25 mmol/L [facility] 20-29 chloride, serum 106 mmol/L [facility] 96-106 potassium, serum 4.4 mmol/L [facility] 3.5-5.2 sodium, serum 143 mmol/L [facility] 494-288 9237/07 /31 urea nitrogen/creatinine ratio, serum 12 [facility] 12-28 eGFR if 52 mL/min/{1.73 _m2} [facility] >59 Low eGFR if not 45 mL/min/{1.73 _m2} [facility] >59 Low creatinine, serum 1.19 mg/dL [facility] 0.57-1.00 High urea nitrogen, blood 14 mg/dL [facility] 8-27 blood glucose, random 76 mg/dL [facility] 65-99 basophil count, absolute 0.0 x10E3/uL [facility] 0.0-0.2 Eosinophil Absolute Count 0.2 X10E3/UL [facility] 0.0-0.4 monocyte count, blood, automated 0.3 X10E3/UL [facility] 0.1-0.9 lymphocyte count, blood, automated 0.7 X10E3/UL [facility] 0.7-3.1 Absolute Neutrophils 2.1 X10E3/UL [facility] 1.4-7.0 basophils as percent of blood leukocytes 1 % [facility] Not Estab. eosinophils as percent of blood leukocytes 5 % [facility] Not Estab. monocytes as percent of blood leukocytes 8 % [facility] Not Estab. lymphocytes as percent of blood leukocytes 21 % [facility] Not Estab. neutrophils as percent of blood leukocytes 65 % [facility] Not Estab. platelet count 253 X10E3/UL [facility] 977-682 3795/07 /31 red blood cell distribution width 13.7 % [facility] 12.3-15.4 mean corpuscular hemoglobin concentration, RBC 32.1 G/DL [facility] 31.5-35.7 mean corpuscular hemoglobin, RBC 29.2 pg [facility] 26.6-33.0 mean corpuscular volume, RBC 91 fL [facility] 79-97 hematocrit, blood 36.8 % [facility] 34.0-46.6 hemoglobin, blood 11.8 g/dL [facility] 11.1-15.9 erythrocyte (RBC) count 4.04 X10E6/UL [facility] 3.77-5.28 leukocyte count, blood 3.2 X10E3/UL [facility] 3.4-10.8 Low ferritin, serum 618 ng/mL [facility] 15-150 High iron saturation percent, serum 38 % [facility] 15-55 iron, serum 84 ug/dL [facility] 27-139 iron binding capacity, unsaturated 135 ug/dL [facility] 608-815 8939/05 /29 iron binding capacity, total 219 ug/dL [facility] 250-450 Low basophil count, absolute 0.1 x10E3/uL [facility] 0.0-0.2 Eosinophil Absolute Count 0.2 X10E3/UL [facility] 0.0-0.4 monocyte count, blood, automated 0.4 X10E3/UL [facility] 0.1-0.9 lymphocyte count, blood, automated 0.9 X10E3/UL [facility] 0.7-3.1 Absolute Neutrophils 2.5 X10E3/UL [facility] 1.4-7.0 basophils as percent of blood leukocytes 2 % [facility] Not Estab. eosinophils as percent of blood leukocytes 4 % [facility] Not Estab. monocytes as percent of blood leukocytes 9 % [facility] Not Estab. lymphocytes as percent of blood leukocytes 22 % [facility] Not Estab. neutrophils as percent of blood leukocytes 63 % [facility] Not Estab. platelet count 249 X10E3/UL [facility] 786-499 1627/05 /29 red blood cell distribution width 15.0 % [facility] 12.3-15.4 mean corpuscular hemoglobin concentration, RBC 33.4 G/DL [facility] 31.5-35.7 mean corpuscular hemoglobin, RBC 29.6 pg [facility] 26.6-33.0 mean corpuscular volume, RBC 89 fL [facility] 79-97 hematocrit, blood 38.6 % [facility] 34.0-46.6 hemoglobin, blood 12.9 g/dL [facility] 11.1-15.9 erythrocyte (RBC) count 4.36 X10E6/UL [facility] 3.77-5.28 leukocyte count, blood 4.0 X10E3/UL [facility] 3.4-10.8 thyroid stimulating hormone, serum 70.070 u[IU]/mL [facility] 0.450-4.500 High ferritin, serum 844 ng/mL [facility] 15-150 High thyroid stimulating hormone, serum 85.850 u[IU]/mL [facility] 0.450-4.500 High thyroxine, serum, free 0.83 ng/dL [facility] 0.82-1.77 iron saturation percent, serum 35 % [facility] 15-55 iron, serum 82 ug/dL [facility] 27-139 iron binding capacity, unsaturated 153 ug/dL [facility] 682-312 5649/03 /14 iron binding capacity, total 235 ug/dL [facility] 250-450 Low lipoprotein, beta, serum, point, quantitative, calculated 140 mg/dL [facility] 0-99 High very low density lipoproteins 33 mg/dL [facility] 5-40 HDL cholesterol, serum 98 mg/dL [facility] >39 triglyceride, serum, random 164 mg/dL [facility] 0-149 High cholesterol, serum 271 mg/dL [facility] 100-199 High basophil count, absolute 0.1 x10E3/uL [facility] 0.0-0.2 Eosinophil Absolute Count 0.2 X10E3/UL [facility] 0.0-0.4 monocyte count, blood, automated 0.3 X10E3/UL [facility] 0.1-0.9 lymphocyte count, blood, automated 0.9 X10E3/UL [facility] 0.7-3.1 Absolute Neutrophils 3.7 X10E3/UL [facility] 1.4-7.0 basophils as percent of blood leukocytes 1 % [facility] Not Estab. eosinophils as percent of blood leukocytes 3 % [facility] Not Estab. monocytes as percent of blood leukocytes 6 % [facility] Not Estab. lymphocytes as percent of blood leukocytes 18 % [facility] Not Estab. neutrophils as percent of blood leukocytes 72 % [facility] Not Estab. platelet count 253 X10E3/UL [facility] 795-882 2924/03 /14 red blood cell distribution width 16.8 % [facility] 12.3-15.4 High mean corpuscular hemoglobin concentration, RBC 32.3 G/DL [facility] 31.5-35.7 mean corpuscular hemoglobin, RBC 28.5 pg [facility] 26.6-33.0 mean corpuscular volume, RBC 88 fL [facility] 79-97 hematocrit, blood 39.9 % [facility] 34.0-46.6 hemoglobin, blood 12.9 g/dL [facility] 11.1-15.9 erythrocyte (RBC) count 4.53 X10E6/UL [facility] 3.77-5.28 leukocyte count, blood 5.1 X10E3/UL [facility] 3.4-10.8 alanine aminotransferase (SGPT), serum 22 1/L [facility] 0-32 aspartate aminotransferase (SGOT), serum 22 1/L [facility] 0-40 alkaline phosphatase, serum 84 1/L [facility] 39-117 bilirubin, serum, total 0.2 mg/dL [facility] 0.0-1.2 albumin/globulin ratio, serum 1.5 [facility] 1.2-2.2 globulin, serum 2.6 [facility] 1.5-4.5 albumin, serum 4.0 g/dL [facility] 3.5-4.8 protein, total, serum 6.6 g/dL [facility] 6.0-8.5 calcium, serum 8.8 mg/dL [facility] 8.7-10.3 carbon dioxide, venous blood 25 mmol/L [facility] 20-29 chloride, serum 104 mmol/L [facility] 96-106 potassium, serum 4.0 mmol/L [facility] 3.5-5.2 sodium, serum 142 mmol/L [facility] 812-541 1421/03 /14 urea nitrogen/creatinine ratio, serum 15 [facility] 12-28 eGFR if 52 mL/min/{1.73 _m2} [facility] >59 Low eGFR if not 45 mL/min/{1.73 _m2} [facility] >59 Low creatinine, serum 1.20 mg/dL [facility] 0.57-1.00 High urea nitrogen, blood 18 mg/dL [facility] 8-27 blood glucose, random 97 mg/dL [facility] 65-99 ferritin, serum 292 ng/mL [facility] 15-150 High activated partial thromboplastin time (aPTT) 38 s [facility] 24-33 High prothrombin time (patient) 18.4 s [facility] 9.1-12.0 High international normalized ratio (INR) 1.8 [facility] 0.8-1.2 High iron saturation percent, serum 14 % [facility] 15-55 Low iron, serum 36 ug/dL [facility] 27-139 iron binding capacity, unsaturated 215 ug/dL [facility] 908-281 2561/01 /13 iron binding capacity, total 251 ug/dL [facility] 301-268 4846/01 /12 bacteria, urine microscopy None seen [facility] None seen/Few epithelial cells, urine 0-10 [facility] 0 - 10 RBC, Urine 0-2 /hpf [facility] 0 - 2 WBC urine on microscopy 0-5 /hpf [facility] 0 - 5 urinalysis, microscopic examination See below: [facility] nitrate, urine Negative [facility] Negative urobilinogen, urine, semiquantitative (dipstick) 0.2 [facility] 0.2-1.0 bilirubin, urine Negative [facility] Negative hemoglobin, urine, by dipstick Negative [facility] Negative ketones, urine, by test strip Negative [facility] Negative glucose, urine Negative [facility] Negative protein, urine, semiquantitative (dipstick) Negative [facility] Negative/Tr clive leukocyte esterase, urine, by dipstick Trace [facility] Negative Abnormal appearance, urine Clear [facility] Clear urine color Yellow [facility] Yellow pH, urine, semiquantitative 6.0 [facility] 5.0-7.5 specific gravity, body fluid 1.006 [facility] 1.005-1.030 basophil count, absolute 0.1 x10E3/uL [facility] 0.0-0.2 Eosinophil Absolute Count 0.3 X10E3/UL [facility] 0.0-0.4 monocyte count, blood, automated 0.4 X10E3/UL [facility] 0.1-0.9 lymphocyte count, blood, automated 0.7 X10E3/UL [facility] 0.7-3.1 Absolute Neutrophils 3.0 X10E3/UL [facility] 1.4-7.0 basophils as percent of blood leukocytes 1 % [facility] Not Estab. eosinophils as percent of blood leukocytes 7 % [facility] Not Estab. monocytes as percent of blood leukocytes 9 % [facility] Not Estab. lymphocytes as percent of blood leukocytes 16 % [facility] Not Estab. neutrophils as percent of blood leukocytes 67 % [facility] Not Estab. platelet count 350 X10E3/UL [facility] 575-677 1043/01 /12 red blood cell distribution width 13.8 % [facility] 12.3-15.4 mean corpuscular hemoglobin concentration, RBC 32.3 G/DL [facility] 31.5-35.7 mean corpuscular hemoglobin, RBC 27.7 pg [facility] 26.6-33.0 mean corpuscular volume, RBC 86 fL [facility] 79-97 hematocrit, blood 36.8 % [facility] 34.0-46.6 hemoglobin, blood 11.9 g/dL [facility] 11.1-15.9 erythrocyte (RBC) count 4.29 X10E6/UL [facility] 3.77-5.28 leukocyte count, blood 4.5 X10E3/UL [facility] 3.4-10.8 alanine aminotransferase (SGPT), serum 8 1/L [facility] 0-32 aspartate aminotransferase (SGOT), serum 14 1/L [facility] 0-40 alkaline phosphatase, serum 90 1/L [facility] 39-117 bilirubin, serum, total 0.2 mg/dL [facility] 0.0-1.2 albumin/globulin ratio, serum 1.5 [facility] 1.2-2.2 globulin, serum 2.8 [facility] 1.5-4.5 albumin, serum 4.1 g/dL [facility] 3.5-4.8 protein, total, serum 6.9 g/dL [facility] 6.0-8.5 calcium, serum 9.2 mg/dL [facility] 8.7-10.3 carbon dioxide, venous blood 24 mmol/L [facility] 20-29 chloride, serum 105 mmol/L [facility] 96-106 potassium, serum 5.1 mmol/L [facility] 3.5-5.2 sodium, serum 145 mmol/L [facility] 134-144 High urea nitrogen/creatinine ratio, serum 13 [facility] 12-28 eGFR if 55 mL/min/{1.73 _m2} [facility] >59 Low eGFR if not 48 mL/min/{1.73 _m2} [facility] >59 Low creatinine, serum 1.15 mg/dL [facility] 0.57-1.00 High urea nitrogen, blood 15 mg/dL [facility] 8-27 blood glucose, random 85 mg/dL [facility] 65-99 alanine aminotransferase (SGPT), serum 10 1/L [facility] 0-32 aspartate aminotransferase (SGOT), serum 17 1/L [facility] 0-40 alkaline phosphatase, serum 68 1/L [facility] 39-117 bilirubin, serum, direct 0.10 mg/dL [facility] 0.00-0.40 bilirubin, serum, total 0.3 mg/dL [facility] 0.0-1.2 albumin, serum 4.1 g/dL [facility] 3.5-4.8 protein, total, serum 6.5 g/dL [facility] 6.0-8.5 activated partial thromboplastin time (aPTT) 29 s [facility] 24-33 bacteria, urine microscopy Few [facility] None seen/Few Crystal Type, Urine Calcium Oxalate [facility] N/A cast type, urinalysis Hyaline casts [facility] N/A hyaline casts, urine Present [facility] None seen Abnormal epithelial cells, urine 0-10 [facility] 0 - 10 RBC, Urine 0-2 /hpf [facility] 0 - 2 WBC urine on microscopy 0-5 /hpf [facility] 0 - 5 urinalysis, microscopic examination See report [facility] nitrate, urine Negative [facility] Negative urobilinogen, urine, semiquantitative (dipstick) 0.2 [facility] 0.2-1.0 bilirubin, urine Negative [facility] Negative hemoglobin, urine, by dipstick Negative [facility] Negative ketones, urine, by test strip Trace [facility] Negative Abnormal glucose, urine Negative [facility] Negative protein, urine, semiquantitative (dipstick) Negative [facility] Negative/Tr clive leukocyte esterase, urine, by dipstick Negative [facility] Negative appearance, urine Clear [facility] Clear urine color Yellow [facility] Yellow pH, urine, semiquantitative 5.0 [facility] 5.0-7.5 specific gravity, body fluid >=1.030 [facility] 1.005-1.030 Abnormal coagulation managed by Ryder Donald RN international normalized ratio (INR) 2.5 Jessicarustam Raymond Normal prothrombin time (patient) 30.0 s Jessica Raymond coagulation managed by Ryder Donald RN international normalized ratio (INR) 1.4 Venecia Ronda Normal prothrombin time (patient) 16.5 s Venecia Ronda coagulation managed by Ryder Donald RN international normalized ratio (INR) 1.1 Jessica Raymond Normal prothrombin time (patient) 13.6 s Jessica Raymond prothrombin time (patient) 10.5 s [facility] 9.1-12.0 international normalized ratio (INR) 1.0 [facility] 0.8-1.2 lipoprotein, beta, serum, point, quantitative, calculated 141 mg/dL [facility] 0-99 High very low density lipoproteins 26 mg/dL [facility] 5-40 HDL cholesterol, serum 82 mg/dL [facility] >39 triglyceride, serum, random 130 mg/dL [facility] 0-149 cholesterol, serum 249 mg/dL [facility] 100-199 High calcium, serum 9.6 mg/dL [facility] 8.7-10.3 carbon dioxide, venous blood 24 mmol/L [facility] 20-29 chloride, serum 102 mmol/L [facility] 96-106 potassium, serum 4.4 mmol/L [facility] 3.5-5.2 sodium, serum 143 mmol/L [facility] 085-133 4167/10 /13 urea nitrogen/creatinine ratio, serum 17 [facility] 12-28 eGFR if 61 mL/min/{1.73 _m2} [facility] >59 eGFR if not 53 mL/min/{1.73 _m2} [facility] >59 Low creatinine, serum 1.06 mg/dL [facility] 0.57-1.00 High urea nitrogen, blood 18 mg/dL [facility] 8-27 blood glucose, random 87 mg/dL [facility] 65-99 basophil count, absolute 0.1 x10E3/uL [facility] 0.0-0.2 Eosinophil Absolute Count 0.2 X10E3/UL [facility] 0.0-0.4 monocyte count, blood, automated 0.4 X10E3/UL [facility] 0.1-0.9 lymphocyte count, blood, automated 0.8 X10E3/UL [facility] 0.7-3.1 Absolute Neutrophils 2.4 X10E3/UL [facility] 1.4-7.0 basophils as percent of blood leukocytes 1 % [facility] Not Estab. eosinophils as percent of blood leukocytes 5 % [facility] Not Estab. monocytes as percent of blood leukocytes 10 % [facility] Not Estab. lymphocytes as percent of blood leukocytes 21 % [facility] Not Estab. neutrophils as percent of blood leukocytes 63 % [facility] Not Estab. platelet count 271 X10E3/UL [facility] 136-369 3716/10 /13 red blood cell distribution width 14.5 % [facility] 12.3-15.4 mean corpuscular hemoglobin concentration, RBC 31.7 G/DL [facility] 31.5-35.7 mean corpuscular hemoglobin, RBC 28.3 pg [facility] 26.6-33.0 mean corpuscular volume, RBC 89 fL [facility] 79-97 hematocrit, blood 41.0 % [facility] 34.0-46.6 hemoglobin, blood 13.0 g/dL [facility] 11.1-15.9 erythrocyte (RBC) count 4.60 X10E6/UL [facility] 3.77-5.28 leukocyte count, blood 3.8 X10E3/UL [facility] 3.4-10.8 pro brain natriuretic peptide 330 pg/mL [facility] 0-301 High microalbumin/creati nine ratio, urine <19.1 mg/g creat [facility] 0.0-30.0 microalbumin, random, urine <3.0 ug/mL [facility] Not Estab. creatinine, random, urine 15.7 mg/dL [facility] Not Estab. iron saturation percent, serum 28 % [facility] 15-55 iron, serum 78 ug/dL [facility] 27-139 iron binding capacity, unsaturated 199 ug/dL [facility] 342-990 2334/09 /13 iron binding capacity, total 277 ug/dL [facility] 551-988 1514/09 /13 alanine aminotransferase (SGPT), serum 12 1/L [facility] 0-32 aspartate aminotransferase (SGOT), serum 21 1/L [facility] 0-40 alkaline phosphatase, serum 89 1/L [facility] 39-117 bilirubin, serum, total <0.2 mg/dL [facility] 0.0-1.2 albumin/globulin ratio, serum 1.7 [facility] 1.2-2.2 globulin, serum 2.5 [facility] 1.5-4.5 albumin, serum 4.3 g/dL [facility] 3.5-4.8 protein, total, serum 6.8 g/dL [facility] 6.0-8.5 calcium, serum 9.4 mg/dL [facility] 8.7-10.3 carbon dioxide, venous blood 23 mmol/L [facility] 20-29 chloride, serum 104 mmol/L [facility] 96-106 potassium, serum 4.4 mmol/L [facility] 3.5-5.2 sodium, serum 143 mmol/L [facility] 415-318 1529/09 /13 urea nitrogen/creatinine ratio, serum 18 [facility] 12-28 eGFR if 73 mL/min/{1.73 _m2} [facility] >59 eGFR if not 63 mL/min/{1.73 _m2} [facility] >59 creatinine, serum 0.91 mg/dL [facility] 0.57-1.00 urea nitrogen, blood 16 mg/dL [facility] 8-27 blood glucose, random 102 mg/dL [facility] 65-99 High ferritin, serum 204 ng/mL [facility] 15-150 High folate, serum 11.4 ng/mL [facility] >3.0 B-12, serum 462 pg/mL [facility] 232-1245 c-reactive protein, quantitative, serum 0.72 mg/L [facility] 0.00-3.00 hemoglobin A1C, blood, as % of total hemoglobin 5.2 % [facility] 4.8-5.6 prothrombin time (patient) 10.1 s [facility] 9.1-12.0 international normalized ratio (INR) 1.0 [facility] 0.8-1.2 basophil count, absolute 0.0 x10E3/uL [facility] 0.0-0.2 Eosinophil Absolute Count 0.2 X10E3/UL [facility] 0.0-0.4 monocyte count, blood, automated 0.4 X10E3/UL [facility] 0.1-0.9 lymphocyte count, blood, automated 1.0 X10E3/UL [facility] 0.7-3.1 Absolute Neutrophils 2.4 X10E3/UL [facility] 1.4-7.0 basophils as percent of blood leukocytes 1 % [facility] Not Estab. eosinophils as percent of blood leukocytes 4 % [facility] Not Estab. monocytes as percent of blood leukocytes 10 % [facility] Not Estab. lymphocytes as percent of blood leukocytes 24 % [facility] Not Estab. neutrophils as percent of blood leukocytes 61 % [facility] Not Estab. platelet count 281 X10E3/UL [facility] 725-388 7613/09 /13 red blood cell distribution width 16.8 % [facility] 12.3-15.4 High mean corpuscular hemoglobin concentration, RBC 32.6 G/DL [facility] 31.5-35.7 mean corpuscular hemoglobin, RBC 28.7 pg [facility] 26.6-33.0 mean corpuscular volume, RBC 88 fL [facility] 79-97 hematocrit, blood 38.7 % [facility] 34.0-46.6 hemoglobin, blood 12.6 g/dL [facility] 11.1-15.9 erythrocyte (RBC) count 4.39 X10E6/UL [facility] 3.77-5.28 leukocyte count, blood 3.9 X10E3/UL [facility] 3.4-10.8 lipoprotein, beta, serum, point, quantitative, calculated 121 mg/dL [facility] 0-99 High very low density lipoproteins 33 mg/dL [facility] 5-40 HDL cholesterol, serum 87 mg/dL [facility] >39 triglyceride, serum, random 163 mg/dL [facility] 0-149 High cholesterol, serum 241 mg/dL [facility] 100-199 High ferritin, serum 301 ng/mL [facility] 15-150 High iron saturation percent, serum 31 % [facility] 15-55 iron, serum 77 ug/dL [facility] 27-139 iron binding capacity, unsaturated 171 ug/dL [facility] 756-096 6731/07 /31 iron binding capacity, total 248 ug/dL [facility] 250-450 Low basophil count, absolute 0.0 x10E3/uL [facility] 0.0-0.2 Eosinophil Absolute Count 0.2 X10E3/UL [facility] 0.0-0.4 monocyte count, blood, automated 0.3 X10E3/UL [facility] 0.1-0.9 lymphocyte count, blood, automated 1.2 X10E3/UL [facility] 0.7-3.1 Absolute Neutrophils 2.5 X10E3/UL [facility] 1.4-7.0 basophils as percent of blood leukocytes 1 % [facility] Not Estab. eosinophils as percent of blood leukocytes 4 % [facility] Not Estab. monocytes as percent of blood leukocytes 8 % [facility] Not Estab. lymphocytes as percent of blood leukocytes 29 % [facility] Not Estab. neutrophils as percent of blood leukocytes 58 % [facility] Not Estab. platelet count 298 X10E3/UL [facility] 668-949 1063/07 /31 red blood cell distribution width 19.6 % [facility] 12.3-15.4 High mean corpuscular hemoglobin concentration, RBC 31.3 G/DL [facility] 31.5-35.7 Low mean corpuscular hemoglobin, RBC 26.8 pg [facility] 26.6-33.0 mean corpuscular volume, RBC 86 fL [facility] 79-97 hematocrit, blood 34.5 % [facility] 34.0-46.6 hemoglobin, blood 10.8 g/dL [facility] 11.1-15.9 Low erythrocyte (RBC) count 4.03 X10E6/UL [facility] 3.77-5.28 leukocyte count, blood 4.3 X10E3/UL [facility] 3.4-10.8 bacteria, urine microscopy Few [facility] None seen/Few Crystal Type, Urine Amorphous Sediment [facility] N/A epithelial cells, urine 0-10 [facility] 0 - 10 RBC, Urine 0-2 /hpf [facility] 0 - 2 WBC urine on microscopy 0-5 /hpf [facility] 0 - 5 urinalysis, microscopic examination See report [facility] nitrate, urine Negative [facility] Negative urobilinogen, urine, semiquantitative (dipstick) 0.2 [facility] 0.2-1.0 bilirubin, urine Negative [facility] Negative hemoglobin, urine, by dipstick Negative [facility] Negative ketones, urine, by test strip Negative [facility] Negative glucose, urine Negative [facility] Negative protein, urine, semiquantitative (dipstick) Negative [facility] Negative/Tr clive leukocyte esterase, urine, by dipstick Negative [facility] Negative appearance, urine Clear [facility] Clear urine color Yellow [facility] Yellow pH, urine, semiquantitative 5.5 [facility] 5.0-7.5 specific gravity, body fluid 1.009 [facility] 1.005-1.030 anion gap, serum 9.2 [facility] estimated glomerular filtration rate >60 [facility] calcium, serum 9.1 mg/dL [facility] blood glucose, fasting 136 mg/dL [facility] creatinine, serum 0.86 mg/dL [facility] urea nitrogen, blood 14.5 mg/dL [facility] carbon dioxide, serum, total 28 mmol/L [facility] chloride, serum 108 mmol/L [facility] potassium, serum 4.2 mmol/L sodium, serum 141 mmol/L platelet count 346 10*3/uL red blood cell distribution width 14.2 % mean corpuscular hemoglobin concentration, RBC 31.6 g/dL mean corpuscular hemoglobin, RBC 27.1 pg mean corpuscular volume, RBC 86.0 fL hematocrit, blood 38.0 % hemoglobin, blood 12.0 g/dL erythrocyte (RBC) count 4.42 10*6/mm3 monocytes as percent of blood leukocytes 1.0 % lymphocytes as percent of blood leukocytes 5.2 % leukocyte count, blood 7.8 10*3/mm3 [facility] PTT patient 26.7 s prothrombin time (patient) 9.9 s [facility] international normalized ratio (INR) 1.0 [facility] Vijay anion gap, serum 8.2 estimated glomerular filtration rate >60 [facility] calcium, serum 8.6 mg/dL [facility] blood glucose, fasting 82 mg/dL [facility] creatinine, serum 0.85 mg/dL [facility] urea nitrogen, blood 14.2 mg/dL [facility] carbon dioxide, serum, total 29 mmol/L chloride, serum 112 mmol/L potassium, serum 4.2 mmol/L sodium, serum 145 mmol/L [facility] platelet count 299 10*3/uL [facility] red blood cell distribution width 14.1 % Lyudmila Linares mean corpuscular hemoglobin concentration, RBC 31.4 g/dL Lyudmila Linares mean corpuscular hemoglobin, RBC 27.3 pg Lyudmila Linares mean corpuscular volume, RBC 87.2 fL Lyudmila Linares hematocrit, blood 35.4 % Lyudmila Linares hemoglobin, blood 11.1 g/dL Lyudmila Linares erythrocyte (RBC) count 4.06 10*6/mm3 Lyudmila Linares monocytes as percent of blood leukocytes 11.3 % Lyudmila Linares lymphocytes as percent of blood leukocytes 29.0 % Lyudmila Linares leukocyte count, blood 4.2 10*3/mm3 Lydumila Linares HISTORY OF MEDICATION USE Medication Status Instructions Dates Provider Indications Com ments potassium citrate 10 mEq (1,080 mg) tablet extended release active take 1 pill twice a day Dorothy Ahumada sertraline 100 mg tablet active take 1 pill a day Dorothy Ahumada Repatha SureClick 140 mg/mL pen injector active INJECT 1 SYRINGE SUBCUTANEOUSLY EVERY TWO WEEKS Cori Ventimiglia PAPER MAKING MACHINE OPERATOR Repatha SureClick 140 mg/mL pen injector completed INJECT 1 PEN SUBCUTANEOUSLY EVERY 2 WEEKS - Cori Ventimiglia PAPER MAKING MACHINE OPERATOR losartan-hydrochl orothiazide 50-12.5 mg tablet active Take 1 tablet by mouth once a day Cori Ventimiglia PAPER MAKING MACHINE OPERATOR Repatha SureClick 140 mg/mL pen injector completed Inject 1 pen injector subcutaneously every two weeks - Nasrin Terrell Eliquis 5 mg tablet active TAKE 1 TABLET BY MOUTH TWICE A DAY Tia Rushing losartan-hydrochl orothiazide 50-12.5 mg tablet completed TAKE 1 TABLET BY MOUTH ONCE A DAY - Dorothy Ahumada amitriptyline 10 mg tablet active Take 1 tablet by mouth once a day Dom Palm Repatha SureClick 140 mg/mL pen injector completed INJECT 140 MG UNDER THE SKIN EVERY TWO WEEKS - Dorothy Ahumada Replinga SureClick 140 mg/mL pen injector completed INJECT 140 MG (1 ML) SUBCUTANEOUSLY EVERY TWO WEEKS - Ryder Donald RN Repannmarie SureClick 140 mg/mL pen injector completed INJECT 140MG UNDER THE SKIN EVERY 14 DAYS - Dorothy Ahumada cetirizine 10 mg tablet active tablet by mouth once a day Nsarin Terrell Eliquis 5 mg tablet completed TAKE 1 TABLET BY MOUTH TWICE DAILY - Dorothy Ahumada Eliquis 5 mg tablet completed one tablet twice daily - Dickson Ceja MD losartan-hydrochl orothiazide 50-12.5 mg tablet completed Take 1 tablet by mouth once a day [facility] CEPHALEXIN 500 MG ORAL CAPSULE completed 1 po tid x 5 days - Radha Bhatt OXYCODONE-ACETAMI NOPHEN 5-325 MG ORAL TABLET completed 1 po q 6 hours prn - Radha Leonardoa SureClick 140 mg/mL pen injector completed Inject 140 mg subcutaneously every two weeks - Ryder Donald RN CIPROFLOXACIN HCL 500 MG ORAL TABLET completed 1 po bid x 5 days - Kendal Barakat PREDNISONE 5 MG ORAL TABLET completed 1 po q day x 10 days - Kendal Barakat MULTIVITAMINS CAPS active 1 tablet once a day Radha Bhatt cholecalciferol (vitamin D3) 125 mcg (5,000 unit) capsule active Take 1 capsule once a day Jessica Raymond MEDROL 4 MG ORAL TABLET THERAPY PACK completed per package instructions - Radha Bhatt CIPRO 500 MG ORAL TABLET completed ONE TAB TWICE DAILY x 5 days - Radha Bhatt TRAMADOL HCL 50 MG ORAL TABLET completed 1 po q 6 hours prn pain - Radha Bhatt amiodarone 200 mg tablet completed Take 1 tablet by mouth once a day - Ryder Donald RN COUMADIN 5 MG ORAL TABLET completed Take one tab in the evening with dinner - Kendal Barakat MAGNESIUM OXIDE 400 MG ORAL TABLET completed ONE TAB TWICE A DAY - Radha Bhatt METOPROLOL TARTRATE 25 MG ORAL TABLET completed one tab. twice daily - Radha Bhatt levothyroxine 75 mcg tablet active Take 1 tablet once a day Cori Yungmiglmalu PAPER MAKING MACHINE OPERATOR COZAAR 50 MG ORAL TABLET completed ONE TAB. DAILY - Radha Bhatt BUSPIRONE HCL 5 MG ORAL TABLET completed 1 tab daily - Radha Bhatt EUCRISA 2 % EXTERNAL OINTMENT completed apply to affected area at bedtime - Radha Bhatt ROSUVASTATIN CALCIUM 10 MG ORAL TABLET completed Take one tablet daily at bedtime - Radha Bhatt FUROSEMIDE 20 MG ORAL TABLET completed 1 po q day prn swelling - Venecia Bond PROBIOTIC ORAL CAPSULE completed take one daily - Carlota Flanagan NEOMYCIN-POLYMYXI N-DEXAMETH [id number] OPHTHALMIC SUSPENSION completed Apply to eyelids daily - Carlota Flanagan CARBIDOPA-LEVODOP A 25-100 MG ORAL TABLET completed once daily at bedtime - Venecia Bond TRIAMCINOLONE ACETONIDE 0.1 % EXTERNAL CREAM completed Apply to affected areas bid - Carlota Flanagan CATAPRES 0.1 MG ORAL TABLET completed once daily - Venecia Bond VITAMIN E TABLET completed daily - Venecia Bond AMITRIPTYLINE HCL TABLET completed 1 tab HS - Venecia Bond Ambien 10 mg tablet active every night as needed Dickson Ceja MD LEVOTHYROXINE SODIUM TABLET completed once daily - Venecia Bond FERROUS SULFATE TABLET completed 1 tablet by mouth daily - Natividad Mckenzie BUSPIRONE HCL 15 MG ORAL TABLET completed 1/2 tablet by mouth twice daily - Venecia Bond LOSARTAN POTASSIUM-HCTZ 50-12.5 MG ORAL TABLET completed 1 tab daily - Venecia Bond LIDODERM 5 % EXTERNAL PATCH completed as needed - Ryder Donald RN APPTRIM LIFESTYLES BARIATRIC ORAL CAPSULE completed 2 daily - Tete Starkey MA MULTIVITAMINS ORAL CAPSULE completed ONE TAB. DAILY - Tete Starkey MA Stool Softener 100 mg tablet active as needed Ryder Donald RN FIBERCON TABLET completed as needed - Ryder Donald RN PREVACID SOLUTAB TBDP completed daily - Elaina Stueber VICODIN TABS completed as directed. - Radha Bhatt PROZAC 10 MG ORAL CAPSULE completed daily - Venecia Bond OXYTROL PATCH TWICE WEEKLY completed patch - Tete Starkey MA BONIVA TABLET completed once monthly - Natividad Mckenzie VITAMIN B12 INJ completed once monthly - Venecia Bond SOCIAL HISTORY Date Observation Value Provider personal history of marijuana use no Dickson Ceja MD drug use no Dickson Alfonso alcohol use no Dickson Alfonso passive cigarette sm mario exposure no Dickson Ceja MD smoking, year quit 2002 Dickson mcintyre MD number of years as a smoker 10 years or more Dickson Ceja MD smoking history, tot al pack/year 7300 Dickson Ceja MD cigarette use yes Dickson Ceja MD smoking status Former smoker Dickson solomon MD personal history of marijuana use no Dickson Ceja MD drug use no Dickson Alfonso alcohol use no Dickson Alfonso passive cigarette sm mario exposure no Dickson Ceja MD smoking, year quit 2002 Dickson mcintyre MD number of years as a smoker 10 years or more Dickson Ceja MD smoking history, tot al pack/year 7300 Dickson Ceja MD cigarette use yes Dickson Ceja MD smoking status Former smoker Dickson solomon MD personal history of marijuana use no Cori Ventimiglia [facility] drug use no Cori Ventimig maria fernanda [facility] alcohol use no Cori Ventimig maria fernanda [facility] passive cigarette sm mario exposure no Cori Ventimiglia [facility] smoking/tobacco cessation, patient education and counseling contraindicated Cori Ventimiglia [facility] smoking, year quit 2002 Cori Ve ntimiglia [facility] number of years as a smoker 10 years or more Cori Ventimiglia [facility] smoking history, tot al pack/year 7300 Cori Ventimiglia [facility] cigarette use yes Cori Ventimi glia [facility] smoking status Former smoker Cori Venti miglia [facility] social history revie wed E&M reviewed - no changes required Dickson Ceja MD social history E&M Marital Statu s: L ras with family/friends E thnicity: Smoking History: Chava su is a former smoker. Dickson Ceja MD social history revie wed E&M reviewed - no changes required Dickson Ceja MD seatbelt usage 100 % Roula Herman exercise type walks, rides bike Roula Davenport is physical exercise, frequency, days per week 3 /wk Roula Herman caffeine use, averag e drinks per day 1 /d Roula Sutton passive cigarette sm mario exposure no Roula Herman smoking, year quit 2002 Roula Davenport is number of years as a smoker 10 years or more Roula Herman smoking history, tot al pack/year 7300 Roula Sutton cigarette use yes Roula Herman smoking status Former smoker Roula Sutton social history revie wed E&M reviewed - no changes required Dickson Ceja MD social history E&M Marital Statu s: L ras with family/friends E thnicity: Smoking History: Chava su is a former smoker. Dickson Ceja MD social history revie wed E&M reviewed - no changes required Dickson Ceja MD seatbelt usage 100 % Nasrin Beard exercise type walks, rides bike Nasrin Terrell physical exercise, frequency, days per week 3 /wk Nasrin Terrell caffeine use, averag e drinks per day 1 /d Nasrin Terrell passive cigarette sm mario exposure no Nasrin Terrell smoking, year quit 2002 Nasrin Terrell number of years as a smoker 10 years or more Nasrin Terrell smoking history, tot al pack/year 7300 Nasrin Terrell cigarette use yes Nasrin Noland nd smoking status Former smoker Nasrin Prabhu flannery social history revie wed E&M reviewed - no changes required Dickson Ceja MD social history E&M Marital Statu s: L ras with family/friends E thnicity: Smoking History: Chava us is a former smoker. Dickson Ceja MD social history revie wed E&M reviewed - no changes required Dickson Ceja MD seatbelt usage 100 % Radha Pickard exercise type walks, rides bike Radha Bhatt physical exercise, frequency, days per week 3 /wk Radha Bhatt caffeine use, averag e drinks per day 1 /d Radha Bhatt passive cigarette sm mario exposure no Radha Bhatt smoking, year quit 2002 Radha Bhatt number of years as a smoker 10 years or more Radha Bhatt smoking history, tot al pack/year 7300 Radha Bhatt cigarette use yes Radha payne smoking status Former smoker Radha Hinkle social history E&M Marital Statu s: L ras with family/friends E thnicity: Smoking History: Chava su is a former smoker. Dickson Ceja MD social history revie wed E&M reviewed - no changes required Dickson Ceja MD seatbelt usage 100 % Jessica burciaga exercise type walks, rides bike Jessica salinas physical exercise, frequency, days per week 3 /wk Jessica Raymond caffeine use, averag e drinks per day 1 /d Jessica Raymond passive cigarette sm mario exposure no Jessica Raymond smoking, year quit 2002 Jessica salinas number of years as a smoker 10 years or more Jessica Raymond smoking history, tot al pack/year 7300 Jessica Raymond cigarette use yes Jessica mullins smoking status Former smoker Jessica parsons social history E&M Marital Statu s: L ras with family/friends E thnicity: Smoking History: Chava su is a former smoker. Dickson Ceja MD social history revie wed E&M reviewed - no changes required Dickson Ceja MD cigarette use yes Kendal Garcia ms smoking status Former smoker Kendal evans social history E&M Marital Statu s: L ras with family/friends E thnicity: Smoking History: P atmayra is a former smoker. Dickson Ceja MD social history revie wed E&M reviewed - no changes required Dickson Ceja MD seatbelt usage 100 % [facility] exercise type walks, rides bike [facility] physical exercise, frequency, days per week 3 /wk [facility] alcohol counseling no [facility] In the past 3 months , have you been waking up wanting to use drugs? (CAGE substance use question #4) N [facility] In the past 3 months , have you felt guilty or bad about using drugs? (CAGE substance use question #3) N [facility] In the past 3 months , has anyone annoyed you by telling you to cut down or stop using drugs? (CAGE substance use question #2) N [facility] In the past 3 months , have you felt you should cut down or stop using drugs?(CAGE substance use question #1) N [facility] alcohol use, average drinks per day social basis only [facility] alcohol use, type at holidays [facility] alcohol use no [facility] caffeine use, averag e drinks per day 1 /d [facility] drug use none [facility] passive cigarette sm mario exposure no [facility] smoking status Former smoker [facility] social history E&M Marital Statu s: L ras with family/friends E thnicity: Smoking History: Chava su is a former smoker. Martha Palmer MD social history revie wed E&M reviewed - no changes required Martha Palmer MD number of grandchildren Martha Palmer MD [facility] seatbelt usage 100 % [facility] exercise type walks, rides bike [facility] physical exercise, frequency, days per week 3 /wk [facility] alcohol counseling no [facility] In the past 3 months , have you been waking up wanting to use drugs? (CAGE substance use question #4) N [facility] In the past 3 months , have you felt guilty or bad about using drugs? (CAGE substance use question #3) N [facility] In the past 3 months , has anyone annoyed you by telling you to cut down or stop using drugs? (CAGE substance use question #2) N [facility] In the past 3 months , have you felt you should cut down or stop using drugs?(CAGE substance use question #1) N [facility] alcohol use, average drinks per day social basis only [facility] alcohol use, type at holidays [facility] In gram alcohol use no [facility] caffeine use, averag e drinks per day 1 /d [facility] drug use none [facility] passive cigarette sm mario exposure no [facility] smoking status Former smoker [facility] social history E&M Marital Statu s: L ras with family/friends E thnicity: Smoking History: P atient is a former smoker. Dickson Ceja MD social history revie wed E&M reviewed - no changes required Dickson Ceja MD pacemaker surgery, hx of Pacemaker Surger y,Hx of Dickson Ceja MD seatbelt usage 100 % Radha Pickard exercise type walks, rides bike Radha Bhatt physical exercise, frequency, days per week 3 /wk Radha Bhatt alcohol counseling no Radha Bhatt In the past 3 months , have you been waking up wanting to use drugs? (CAGE substance use question #4) N Radha Bhatt In the past 3 months , have you felt guilty or bad about using drugs? (CAGE substance use question #3) N Radha Bhatt In the past 3 months , has anyone annoyed you by telling you to cut down or stop using drugs? (CAGE substance use question #2) N Radha Bhatt In the past 3 months , have you felt you should cut down or stop using drugs?(CAGE substance use question #1) N Radha Bhatt alcohol use, average drinks per day social basis only Radha Bhatt alcohol use, type at holidays Radha Bhatt alcohol use no Radha espinoza caffeine use, averag e drinks per day 1 /d Radha Bhatt drug use none Radha espinoza passive cigarette sm mario exposure no Radha Bhatt smoking status Former smoker Radha Hinkle social history E&M Marital Statu s: L ras with family/friends E thnicity: Smoking History: Chava su is a former smoker. Dickson Ceja MD social history [facility] E&M reviewed - no changes required Dickson Ceja MD number of grandchildren Dickson Flanagan seatbelt usage 100 % Carlota ly exercise type walks, rides bike Carlota powers physical exercise, frequency, days per week 3 /wk Carlota Flanagan alcohol counseling no Carlota powers In the past 3 months , have you been waking up wanting to use drugs? (CAGE substance use question #4) N [facility] In the past 3 months , have you felt guilty or bad about using drugs? (CAGE substance use question #3) N [facility] In the past 3 months , has anyone annoyed you by telling you to cut down or stop using drugs? (CAGE substance use question #2) N [facility] In the past 3 months , have you felt you should cut down or stop using drugs?(CAGE substance use question #1) N [facility] alcohol use, average drinks per day social basis only [facility] alcohol use, type at holidays [facility] alcohol use no [facility] caffeine use, averag e drinks per day 1 /d [facility] drug use none [facility] passive cigarette sm mario exposure no [facility] smoking status Former smoker [facility] number of grandchildren Tg Young social history revie wed E&M reviewed - no changes required Richard Young social history E&M Marital Statu s: L ras with family/friends E thnicity: Smoking History: Chava su is a former smoker. Richard Young seatbelt usage 100 % [facility] exercise type walks, rides bike Venecia Robert s physical exercise, frequency, days per week 3 /wk Venecia Ronda alcohol counseling no Venecia Robert s In the past 3 months , have you been waking up wanting to use drugs? (CAGE substance use question #4) N [facility] In the past 3 months , have you felt guilty or bad about using drugs? (CAGE substance use question #3) N Venecia Ronda In the past 3 months , has anyone annoyed you by telling you to cut down or stop using drugs? (CAGE substance use question #2) N Venecia Ronda In the past 3 months , have you felt you should cut down or stop using drugs?(CAGE substance use question #1) N [facility] alcohol use, average drinks per day social basis only [facility] alcohol use, type at holidays [facility] alcohol use no [facility] caffeine use, averag e drinks per day 1 /d [facility] drug use none [facility] passive cigarette sm mario exposure no [facility] smoking status Former smoker [facility] social history E&M Marital Statu s: L ras with family/friends E thnicity: Smoking History: Chava su is a former smoker. Dickson Ceja MD social history revie [facility] E&M reviewed - no changes required Dickson Ceja MD seatbelt usage 100 % Radha Pickard exercise type walks, rides bike Radha Bhatt physical exercise, frequency, days per week 3 /wk Radha Bhatt alcohol counseling no Radha Bhatt In the past 3 months , have you been waking up wanting to use drugs? (CAGE substance use question #4) N Radha Bhatt In the past 3 months , have you felt guilty or bad about using drugs? (CAGE substance use question #3) Juanito Bhatt In the past 3 months , has anyone annoyed you by telling you to cut down or stop using drugs? (CAGE substance use question #2) N Radha Bhatt In the past 3 months , have you felt you should cut down or stop using drugs?(CAGE substance use question #1) N Radha Bhatt alcohol use, average drinks per day social basis only Radha Bhatt alcohol use, type at holidays Radha Bhatt alcohol use no Radha espinoza caffeine use, averag e drinks per day 1 /d Radha Bhatt drug use none Radha espinoza passive cigarette sm mario exposure no Radha Bhatt smoking status Former smoker Radha Hinkle social history E&M Marital Statu s: L ras with family/friends E thnicity: Smoking History: Chava su is a former smoker. Alexandru Colon MD social history revie [facility] E&M reviewed - no changes required Alexandru Colon MD number of grandchildren Alexandru Colon MD [facility] seatbelt usage 100 % [facility] exercise type walks, rides bike Crosby Silva [facility] physical exercise, frequency, days per week 3 /wk [facility] alcohol counseling no [facility] In the past 3 months , have you been waking up wanting to use drugs? (CAGE substance use question #4) N [facility] In the past 3 months , have you felt guilty or bad about using drugs? (CAGE substance use question #3) N [facility] In the past 3 months , has anyone annoyed you by telling you to cut down or stop using drugs? (CAGE substance use question #2) N [facility] In the past 3 months , have you felt you should cut down or stop using drugs?(CAGE substance use question #1) N [facility] alcohol use, average drinks per day social basis only [facility] use, type at holidays Carlota In gram alcohol use no Carlota Flanagan caffeine use, averag e drinks per day 1 /d [facility] drug use none [facility] passive cigarette sm mario exposure no [facility] smoking status Former smoker [facility] social history E&M Marital Statu s: L ras with family/friends E thnicity: Smoking History: Chava su is a former smoker. Dickson Ceja MD social history revie wed E&M reviewed - no changes required Dickson Ceja MD seatbelt usage 100 % [facility] exercise type walks, rides bike [facility] physical exercise, frequency, days per week 3 /wk [facility] alcohol counseling no [facility] In the past 3 months , have you been waking up wanting to use drugs? (CAGE substance use question #4) N [facility] In the past 3 months , have you felt guilty or bad about using drugs? (CAGE substance use question #3) N [facility] In the past 3 months , has anyone annoyed you by telling you to cut down or stop using drugs? (CAGE substance use question #2) N [facility] In the past 3 months , have you felt you should cut down or stop using drugs?(CAGE substance use question #1) N [facility] alcohol use, average drinks per day social basis only [facility] alcohol use, type at holidays [facility] alcohol use no [facility] caffeine use, averag e drinks per day 1 /d [facility] drug use none [facility] passive cigarette sm mario exposure no [facility] smoking status Former smoker [facility] social history E&M Marital Statu s: L ras with family/friends E thnicity: Smoking History: Chava su is a former smoker. Dickson Ceja MD social history revie wed E&M reviewed - no changes required Dickson Ceja MD seatbelt usage 100 % Radha Pickard exercise type walks, rides bike Radha Bhatt physical exercise, frequency, days per week 3 /wk Radha Bhatt alcohol counseling no Radha Bhatt In the past 3 months , have you been waking up wanting to use drugs? (CAGE substance use question #4) N Radha Bhatt In the past 3 months , have you felt guilty or bad about using drugs? (CAGE substance use question #3) N Radha Bhatt In the past 3 months , has anyone annoyed you by telling you to cut down or stop using drugs? (CAGE substance use question #2) N Radha Bhatt In the past 3 months , have you felt you should cut down or stop using drugs?(CAGE substance use question #1) N Radha Bhatt alcohol use, average drinks per day social basis only Radha Bhatt alcohol use, type at holidays Radha Bhatt alcohol use no Radha espinoza caffeine use, averag e drinks per day 1 /d Radha Bhatt drug use none Radha espinoza passive cigarette sm mario exposure no Radha Bhatt smoking status Former smoker Radha Hinkle social history revie wed E&M reviewed - no changes required Dickson Ceja MD alcohol use no Dorothy bee smoking status Former smoker Dorothy Monmendy gage smoking/tobacco cessation, patient education and counseling No Dickson Ceja MD social history revie wed E&M reviewed - no changes required Dickson Ceja MD seatbelt usage 100 % Ashlee solomon exercise type walks, rides bike Ashlee Altman physical exercise, frequency, days per week 3 /wk Ashlee Marti alcohol counseling no Ashlee Altman In the past 3 months , have you been waking up wanting to use drugs? (CAGE substance use question #4) N Ashlee Marti In the past 3 months , have you felt guilty or bad about using drugs? (CAGE substance use question #3) N Ashlee Marti In the past 3 months , has anyone annoyed you by telling you to cut down or stop using drugs? (CAGE substance use question #2) N Ashlee Marti In the past 3 months , have you felt you should cut down or stop using drugs?(CAGE substance use question #1) N Ashlee Marti alcohol use, average drinks per day social basis only Ashlee Marti alcohol use, type at holidays Ashlee Myers Bailey caffeine use, averag e drinks per day 1 /d Ashlee Marti drug use none Ashlee Marti passive cigarette sm mario exposure no Ashlee Marti smoking status Former smoker Ashlee Mejia tamara drug use none Dickson Alfonso social history revie nella E&M reviewed Ryder Donald RN seatbelt usage 100 % Dickson Ceja MD exercise type walks, rides bike Dickson mcintyre MD physical exercise, frequency, days per week 3 /wk Dickson Ceja MD alcohol counseling no Dickson mcintyre MD In the past 3 months , have you been waking up wanting to use drugs? (CAGE substance use question #4) Juanito Ceja MD In the past 3 months , have you felt guilty or bad about using drugs? (CAGE substance use question #3) Juanito Ceja MD In the past 3 months , has anyone annoyed you by telling you to cut down or stop using drugs? (CAGE substance use question #2) Juanito Ceja MD In the past 3 months , have you felt you should cut down or stop using drugs?(CAGE substance use question #1) Juanito Ceja MD caffeine use, averag e drinks per day 1 /d Dickson Ceja MD drug use no Dickson Alfonso passive cigarette sm mario exposure no Ryder Donald RN alcohol use, type at holidays Ryder Donald RN smoking history, tot al pack/year 7300 Ryder Donald RN smoking, year quit 2002 Ryder garcia RN smoking status former smoker Ryder [place] N social history revie wed E&M reviewed Ryder Donald RN social history revie wed E&M reviewed Dickson Ceja MD social history revie wed E&M reviewed Dickson Ceja MD social history revie wed E&M reviewed Dickson Ceja MD drug use none Dickson Alfonso quit smoking, stage quit Ryder diamond RN smoking status Quit Ryder Donald RN social history E&M Marital Statu s: L ras with family/friends E thnicity: Ryder Donald RN social history revie wed E&M reviewed Ryder Donald RN caffeine use, averag e drinks per day yes LinkLogic alcohol use, average drinks per day social basis only [employer]Log[employer] number of years as a smoker 10 years or more LinkLog smoking status Smoker LinkLog FUNCTIONAL STATUS Date Observation Value Provider HRA, CV Assess/Plan, Angina (inactive) Management Plan continue current therapy Cori GARIBAY HRA, CV Assess/Plan, Angina (inactive) Management Plan continue current therapy Dickson Ceja MD HRA, CV Assess/Plan, Angina (inactive) Management Plan continue current therapy Dickson Ceja MD HRA, CV Assess/Plan, Angina (inactive) Management Plan continue current therapy Dickson Ceja MD HRA, CV Assess/Plan, Angina (inactive) Management Plan continue current therapy Dickson Ceja MD HRA, CV Assess/Plan, Angina (inactive) Management Plan continue current therapy Martha Palmer MD HRA, CV Assess/Plan, Angina (inactive) Management Plan continue current therapy Dickson Ceja MD HRA, CV Assess/Plan, Angina (inactive) Management Plan continue current therapy Dickson Ceja MD HRA, CV Assess/Plan, Angina (inactive) Management Plan continue current therapy Richard Hector HRA, CV Assess/Plan, Angina (inactive) Management Plan continue current therapy Dickson Ceja MD HRA, CV Assess/Plan, Angina (inactive) Management Plan continue current therapy Alexandru Colon MD HRA, CV Assess/Plan, Angina (inactive) Management Plan continue current therapy Dicksno Ceja MD HRA, CV Assess/Plan, Angina (inactive) Management Plan continue current therapy Dickson Ceja MD MENTAL STATUS Date Observation Value Provider assessment of judgme nt and insight E&M Alert and oriented to time, place and person. Mood and affect are normal. Ryder Donald RN assessment of judgme nt and insight E&M Alert and oriented to time, place and person. Mood and affect are normal. Ryder Donald RN assessment of judgme nt and insight E&M Alert and oriented to time, place and person. Mood and affect are normal. Dickson Ceja MD assessment of judgme nt and insight E&M Alert and oriented to time, place and person. Mood and affect are normal. Dickson Ceja MD assessment of judgme nt and insight E&M Alert and oriented to time, place and person. Mood and affect are normal. Dickson Ceja MD assessment of judgme nt and insight E&M Alert and oriented to time, place and person. Mood and affect are normal. Ryder Donald RN FAMILY HISTORY Family Member Condition Father [place] male <55 Mother Family History of Co ronary Artery Disease: Full Brother Family History of Co ronary Artery Disease: Full Brother Family History of Tapia dden Cardiac : Full Brother Family History Coron christopher Heart Disease male < 55: Father Family History of Tapia dden Cardiac : Father Family History Coron christopher Heart Disease male < 55: INSURANCE PROVIDERS Payer name Policy type / Coverage type Doe red alliance party ID [employer] MEDICARE KATE PPO Medicare [id number] [employer] [id number] ADVANCE DIRECTIVES Name Date DISCUSSED - NO DECISION MADE TREATMENT PLAN Date Name Performer [id number],S, Dickson Ramada n [id number],S, Dickson Ramada n [id number],S, Dickson Ramada n [id number],S, Dickson Ramada n [id number],S, Dickson Ramada n [id number],S, Dickson Ramada n [id number],S, Dickson Ramada n [id number],S, Dickson Ramada n [id number],B, Dickson Ramada n [place] [id number],S, Dickson Ramada n DE [id number],S, Dickson Ramada n [place] [id number],S, Dickson Ramada n DE [id number],B, Dickson Ramada n DE [id number],S, Dickson Ramada n DE [id number],S, Dickson Ramada n DE [id number],S, Dickson Ramada n DE [id number],S, Dickson Ramada n DE [id number],S, Dickson Ramada n DE [id number],S, Dickson Ramada n DE [id number],S, Dickson Ramada n DE [id number],S, Dickson solomon MD Cardiology Dickson Ceja MD Cardiology Dickson Ceja MD Cardiology Dickson Ceja MD Cardiology Dickson Ceja MD Cardiology Dickson Ceja MD Cardiology Dickson Ceja MD Cardiology Dickson Ceja MD Cardiology Dickson Ceja MD Cardiology Dickson Ceja MD Cardiology Dickson Ceja MD Cardiology Dickson Ceja MD Cardiology:will upda te lipids r emains on repatha as statin intolerant T he following medications were removed from the medication list: Repatha Sureclick 140 Mg/ml Pen Injector (Evolocumab) ..... Inject 1 pen subcutaneously every 2 weeks Her updated medication list for this problem includes: Repatha Sureclick 140 Mg/ml Pen Injector (Evolocumab) ..... Inject 1 syringe subcutaneously every two weeks [facility] Cardiology:will upda te echo and pBNP given SOB c onsider Jardiance if symptoms persist H er updated medication list for this problem includes: Losartan-hydrochlorothiazide 50-12.5 Mg Tablet (Losartan-hydrochlorothiazide) ..... Take 1 tablet by mouth once a day [facility] Cardiology:normal de vice function 8 0% RA pacing [facility] Cardiology:BP lower today h ave asked her to monitor and record at home w ill review and next visit and determine need to adjust therapy H er updated medication list for this problem includes: Losartan-hydrochlorothiazide 50-12.5 Mg Tablet (Losartan-hydrochlorothiazide) ..... Take 1 tablet by mouth once a day [facility] Cardiology:chronic m ore frequent W ill update echo w ill do labs to r/o underlying source w ill return in one month or sooner if needed. H er updated medication list for this problem includes: Losartan-hydrochlorothiazide 50-12.5 Mg Tablet (Losartan-hydrochlorothiazide) ..... Take 1 tablet by mouth once a day Coritommy Maxwell [facility] Cardiology:last neda ce check showed HVR episodes w ill check labs to r/o underlying source c onsider BB if recurrent P PM in place Coritommy Maxwell [facility] Cardiology Dickson Ceja MD Cardiology Dickson Ceja MD Cardiology Dickson Ceja MD Cardiology Dickson Ceja MD Cardiology Dickson Ceja MD Cardiology Dickson Ceja MD Cardiology Dickson Ceja MD Cardiology Dickson Ceja MD Cardiology Dickson Ceja MD Cardiology Dickson Ceja MD Cardiology Dickson Ceja MD Cardiology Dickson Ceja MD Cardiology Dickson Ceja MD Cardiology Dickson Ceja MD Cardiology Dickson Ceja MD Cardiology Dickson Ceja MD Cardiology Dickson Ceja MD Cardiology Dickson Ceja MD Cardiology Dickson Ceja MD Cardiology Dickson Ceja MD Cardiology Dickson Ceja MD Cardiology Dickson Ceja MD Cardiology Dickson Ceja MD Cardiology Dickson Ceja MD Cardiology Dickson Ceja MD Cardiology Dickson Ceja MD Cardiology:Pacer kassi ck shows paroxysmal a-fib. Will start Eliquis. Dickson Ceja MD Cardiology Dickson Ceja MD Cardiology Dickson Ceja MD Cardiology Dickson Ceja MD Cardiology:Restart losartan hct. Dickson Ceja MD Cardiology:Pacer sit e well healed. Has stopped bothering her since pocket revision. Dickson Ceja MD Cardiology:Needs to go back on amiodarone after presented to ED in a-fib off amio. Dickson Ceja MD Cardiology follow up Dickson matamoros MD Cardiology follow up Dickson matamoros MD Cardiology follow up Dickson matamoros MD Cardiology follow up Dickson matamoros MD Cardiology follow up :Needs DOAC, but will wait until we finish syncope workup Dickson Ceja MD Cardiology follow up :2 syncopal episodes in last 6 weeks. Nothing on pacemaker. Reprogrammed to more sensitivity for VT. Did have 1 minute a-fib with RVR last pacer check. Dickson Ceja MD Cardiology Dickson Ceja MD Cardiology Dickson Ceja MD Cardiology Dickson Ceja MD Cardiology Dickson Ceja MD Cardiology Dickson Ceja MD Cardiology Dickson Ceja MD Cardiology hospital follow up Ra roselia Ceja MD Cardiology hospital follow up Ra roselia Ceja MD Cardiology hospital follow up Ra roselia Ceja MD Cardiology hospital follow up Ra roselia Ceja MD Cardiology hospital follow up:Continue coumadin for 6 months and if no recurrance can d/c . Dickson Ceja MD Cardiology hospital follow up Ra roselia Ceja MD Cardiology:Will check CBC and ir on studies. Martha Palmer MD Cardiology:Phrenic n erve stimulation from the atrial lead. The thresholds have been reduced. Symptoms have resolved. She is planned for repositioning in the coming weeks. Martha Palmer MD Cardiology Dickson Ceja MD Cardiology Dickson Ceja MD Cardiology Dickson Ceja MD Cardiology Dickson Ceja MD Cardiology Dickson Ceja MD Cardiology:Leads dislodged. 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 Dickson Ceja MD Cardiology Dickson Ceja MD Electrophysiology fo llow up:BP today: 118/76 P rior BP: 129/84 (03/22/2018) Labs Reviewed: C reat: 1.06 (03/26/2018) C hol: 249 (03/26/2018) HDL: 82 (03/26/2018) The following medications were removed from the medication list: Furosemide 20 Mg Oral Tablet (Furosemide) ..... 1 po q day prn swelling Her updated medication list for this problem includes: Metoprolol Tartrate 25 Mg Oral Tablet (Metoprolol tartrate) ..... One tab. twice daily Richard Young Electrophysiology fo llow up:See above. Orders: 9 9215 HIGH Complex ([id number]) S chedule Followup (*) E P Study w/anesthesia (*) Her updated medication list for this problem includes: Warfarin Sodium 2.5 Mg Oral Tablet (Warfarin sodium) ..... One tab daily for 7 days prior to your procedure. Metoprolol Tartrate 25 Mg Oral Tablet (Metoprolol tartrate) ..... One tab. twice daily Richard Young Electrophysiology fo llow up:ILR remote check 04/09/18 that showed 1 symptomatic AFib episode, duration 6 min, max HR 188 bpm and 1 Tachy episode (duration 1 min, max HR 207 bpm) that appears to be VT vs SVT. Will schedule EP study at [facility] on 04/16/18. Warfarin 2.5mg to be started 7 days prior to ablation. Orders: 9 9215 HIGH Complex ([id number]) S chedule Followup (*) E P Study w/anesthesia (*) Her updated medication list for this problem includes: Warfarin Sodium 2.5 Mg Oral Tablet (Warfarin sodium) ..... One tab daily for 7 days prior to your procedure. Metoprolol Tartrate 25 Mg Oral Tablet (Metoprolol tartrate) ..... One tab. twice daily Richard Young Cardiology Dickson Ceja MD Cardiology Dickson Ceja MD Cardiology Dickson Ceja MD Cardiology Dickson Ceja MD Cardiology:Has worn monitor in past. Wants to proceed with ILR. Will schedule. 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 1 po q day prn swelling BP today: 140/80 P rior BP: 128/82 (01/11/2018) Labs Reviewed: C reat: 0.86 (03/18/2010) C hol: 241 (01/12/2018) HDL: 87 (01/12/2018) Alexandru Colon MD Cardiology Alxeandru Colon MD Cardiology follow up:Recheck lip id panel Dickson Ceja MD Cardiology follow up Dickson matamoros MD Cardiology follow up :Diuresed 8 pounds in 24 hours. N eeds ECHO and Stress test Dickson Ceja MD Cardiology follow up Dickson matamoros MD Cardiology follow up Dickson matamoros MD Cardiology Dickson Ceja MD Cardiology Dickson Ceja MD Cardiology Dickson Ceja MD Cardiology Dickson Ceja MD Cardiology Dickson Ceja MD Cardiology Follow up Dickson maatmoros MD Cardiology Follow up Dickson villalba MD Cardiology Follow up Dickson matamoros MD Cardiology Follow up Dickson matamoros MD follow up Dickson Ceja MD follow up Dickson Ceja MD follow up: H er updated medication list for this problem includes: Catapres 0.1 Mg Tabs (Clonidine hcl) ..... Once daily Losartan Potassium-hctz 50-12.5 Mg Tabs (Losartan potassium-hctz) ..... 1 tab daily Dickson Ceja MD follow up: H er updated medication list for this problem includes: Catapres 0.1 Mg Tabs (Clonidine hcl) ..... Once daily Losartan Potassium-hctz 50-12.5 Mg Tabs (Losartan potassium-hctz) ..... 1 tab daily Dickson Ceja MD Follow up: B P today: 130/70 Prior BP: 103/63 (03/22/2012) Dickson Ceja MD Follow up: B P today: 130/70 P rior BP: 103/63 (03/22/2012) Labs Reviewed: C reat: 0.86 (03/18/2010) Dickson Ceja MD Follow up: E ncouraged to push clear liquids, get enough rest, and take acetaminophen as needed. To be seen in 10 days if no improvement, sooner if worse. Dickson Ceja MD Follow up: B P today: 130/70 Prior BP: 103/63 (03/22/2012) H gb: 12.0 (03/18/2010) HCT: 38.0 (03/18/2010) RBC: 4.42 (03/18/2010) WBC: 7.8 (03/18/2010) B UN: 14.5 (03/18/2010) Creat: 0.86 (03/18/2010) Glucose: 136 (03/18/2010) N a+: 141 (03/18/2010) K+: 4.2 (03/18/2010) Cl: 108 (03/18/2010) Anion Gap: 9.2 (03/18/2010) Calcium: 9.1 (03/18/2010) Nuclear Stress Findings: 1. Normal myocardial perfusion imaging after vasodilator stress with Regadenoson. 2 . Normal left ventricular systolic function with a calculated ejection fraction of 67%. 3 . No obvious significant scintigraphic evidence of myocardial ischemia or scar. 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 Normal left ventricular wall motion and systolic function. EF 60% - [facility] (03/18/2010) Dickson Ceja MD Follow up: B P today: 130/70 Prior BP: 103/63 (03/22/2012) N uclear Stress Findings: 1. Normal myocardial perfusion imaging after vasodilator stress with Regadenoson. 2 . Normal left ventricular systolic function with a calculated ejection fraction of 67%. 3 . No obvious significant scintigraphic evidence of myocardial ischemia or scar. 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 Normal left ventricular wall motion and systolic function. EF 60% - [facility] (03/18/2010) C arotid Doppler/Duplex: Normal O (02/24/2010) H gb: 12.0 (03/18/2010) HCT: 38.0 (03/18/2010) RBC: 4.42 (03/18/2010) WBC: 7.8 (03/18/2010) B UN: 14.5 (03/18/2010) Creat: 0.86 (03/18/2010) Glucose: 136 (03/18/2010) N a+: 141 (03/18/2010) K+: 4.2 (03/18/2010) Cl: 108 (03/18/2010) PT: 9.9 (02/07/2010) INR: 1.0 (02/07/2010) P TT: 26.7 (02/07/2010) Dickson Ceja MD Follow up: B P today: 130/70 Prior BP: 103/63 (03/22/2012) N uclear Stress Findings: 1. Normal myocardial perfusion imaging after vasodilator stress with Regadenoson. 2 . Normal left ventricular systolic function with a calculated ejection fraction of 67%. 3 . No obvious significant scintigraphic evidence of myocardial ischemia or scar. 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 Normal left ventricular wall motion and systolic function. EF 60% - [facility] (03/18/2010) C arotid Doppler/Duplex: Normal [facility] (02/24/2010) H gb: 12.0 (03/18/2010) HCT: 38.0 (03/18/2010) RBC: 4.42 (03/18/2010) WBC: 7.8 (03/18/2010) B UN: 14.5 (03/18/2010) Creat: 0.86 (03/18/2010) Glucose: 136 (03/18/2010) N a+: 141 (03/18/2010) K+: 4.2 (03/18/2010) Cl: 108 (03/18/2010) PT: 9.9 (02/07/2010) INR: 1.0 (02/07/2010) P TT: 26.7 (02/07/2010) Dickson Ceja MD Follow up: B P today: 130/70 Prior BP: 103/63 (03/22/2012) H gb: 12.0 (03/18/2010) HCT: 38.0 (03/18/2010) RBC: 4.42 (03/18/2010) WBC: 7.8 (03/18/2010) B UN: 14.5 (03/18/2010) Creat: 0.86 (03/18/2010) Glucose: 136 (03/18/2010) N a+: 141 (03/18/2010) K+: 4.2 (03/18/2010) Cl: 108 (03/18/2010) Anion Gap: 9.2 (03/18/2010) Calcium: 9.1 (03/18/2010) Nuclear Stress Findings: 1. Normal myocardial perfusion imaging after vasodilator stress with Regadenoson. 2 . Normal left ventricular systolic function with a calculated ejection fraction of 67%. 3 . No obvious significant scintigraphic evidence of myocardial ischemia or scar. 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 Normal left ventricular wall motion and systolic function. EF 60% - [facility] (03/18/2010) Dickson Ceja MD Follow up: B P today: 130/70 P rior BP: 103/63 (03/22/2012) Labs Reviewed: C reat: 0.86 (03/18/2010) Dickson Ceja MD routine: B P today: / Prior BP: 124/60 (06/16/2011) Dickson Ceja MD routine: E ncouraged to push clear liquids, get enough rest, and take acetaminophen as needed. To be seen in 10 days if no improvement, sooner if worse. Dickson Ceja MD routine: H er updated medication list for this problem includes: Losartan Potassium-hctz 50-12.5 Mg Tabs (Losartan potassium-hctz) ..... 1 tab daily BP today: / Prior BP: 124/60 (06/16/2011) H gb: 12.0 (03/18/2010) HCT: 38.0 (03/18/2010) RBC: 4.42 (03/18/2010) WBC: 7.8 (03/18/2010) B UN: 14.5 (03/18/2010) Creat: 0.86 (03/18/2010) Glucose: 136 (03/18/2010) N a+: 141 (03/18/2010) K+: 4.2 (03/18/2010) Cl: 108 (03/18/2010) Anion Gap: 9.2 (03/18/2010) Calcium: 9.1 (03/18/2010) Nuclear Stress Findings: 1. Normal myocardial perfusion imaging after vasodilator stress with Regadenoson. 2 . Normal left ventricular systolic function with a calculated ejection fraction of 67%. 3 . No obvious significant scintigraphic evidence of myocardial ischemia or scar. 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 Normal left ventricular wall motion and systolic function. EF 60% - [facility] (03/18/2010) Dickson Ceja MD routine: B P today: / Prior BP: 124/60 (06/16/2011) N uclear Stress Findings: 1. Normal myocardial perfusion imaging after vasodilator stress with Regadenoson. 2 . Normal left ventricular systolic function with a calculated ejection fraction of 67%. 3 . No obvious significant scintigraphic evidence of myocardial ischemia or scar. 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 Normal left ventricular wall motion and systolic function. EF 60% - [facility] (03/18/2010) C [place]rotid Doppler[place]: [place] [facility] [place] H gb: 12.0 (03/18/2010) HCT: 38.0 (03/18/2010) RBC: 4.42 (03/18/2010) WBC: 7.8 (03/18/2010) B UN: 14.5 (03/18/2010) Creat: 0.86 (03/18/2010) Glucose: 136 (03/18/2010) N a+: 141 (03/18/2010) K+: 4.2 (03/18/2010) Cl: 108 (03/18/2010) PT: 9.9 (02/07/2010) INR: 1.0 (02/07/2010) P TT: 26.7 (02/07/2010) Dickson Ceja MD routine: B P today: / Prior BP: 124/60 (06/16/2011) N uclear Stress Findings: 1. Normal myocardial perfusion imaging after vasodilator stress with Regadenoson. 2 . Normal left ventricular systolic function with a calculated ejection fraction of 67%. 3 . No obvious significant scintigraphic evidence of myocardial ischemia or scar. 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 Normal left ventricular wall motion and systolic function. EF 60% - [facility] (03/18/2010) C arotid Doppler/Duplex: [place] [facility] [place] H gb: 12.0 (03/18/2010) HCT: 38.0 (03/18/2010) RBC: 4.42 (03/18/2010) WBC: 7.8 (03/18/2010) B UN: 14.5 (03/18/2010) Creat: 0.86 (03/18/2010) Glucose: 136 (03/18/2010) N a+: 141 (03/18/2010) K+: 4.2 (03/18/2010) Cl: 108 (03/18/2010) PT: 9.9 (02/07/2010) INR: 1.0 (02/07/2010) P TT: 26.7 (02/07/2010) Dickson Ceja MD routine: H er updated medication list for this problem includes: Buspirone Hcl 15 Mg Tabs (Buspirone hcl) ..... 1/2 tablet by mouth twice daily BP today: / Prior BP: 124/60 (06/16/2011) H gb: 12.0 (03/18/2010) HCT: 38.0 (03/18/2010) RBC: 4.42 (03/18/2010) WBC: 7.8 (03/18/2010) B UN: 14.5 (03/18/2010) Creat: 0.86 (03/18/2010) Glucose: 136 (03/18/2010) N a+: 141 (03/18/2010) K+: 4.2 (03/18/2010) Cl: 108 (03/18/2010) Anion Gap: 9.2 (03/18/2010) Calcium: 9.1 (03/18/2010) Nuclear Stress Findings: 1. Normal myocardial perfusion imaging after vasodilator stress with Regadenoson. 2 . Normal left ventricular systolic function with a calculated ejection fraction of 67%. 3 . No obvious significant scintigraphic evidence of myocardial ischemia or scar. 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 Normal left ventricular wall motion and systolic function. EF 60% - [facility] (03/18/2010) Dickson Ceja MD routine: H er updated medication list for this problem includes: Losartan Potassium-hctz 50-12.5 Mg Tabs (Losartan potassium-hctz) ..... 1 tab daily Prior BP: 124/60 (06/16/2011) Labs Reviewed: C reat: 0.86 (03/18/2010) Dickson Ceja MD follow up: B P today: 124/60 Prior BP: 118/68 (03/24/2011) Dickson Ceja MD follow up: H er updated medication list for this problem includes: Losartan Potassium-hctz 50-12.5 Mg Tabs (Losartan potassium-hctz) ..... 1 tab daily BP today: 124/60 Prior BP: 118/68 (03/24/2011) H gb: 12.0 (03/18/2010) HCT: 38.0 (03/18/2010) RBC: 4.42 (03/18/2010) WBC: 7.8 (03/18/2010) B UN: 14.5 (03/18/2010) Creat: 0.86 (03/18/2010) Glucose: 136 (03/18/2010) N a+: 141 (03/18/2010) K+: 4.2 (03/18/2010) Cl: 108 (03/18/2010) Anion Gap: 9.2 (03/18/2010) Calcium: 9.1 (03/18/2010) Nuclear Stress Findings: 1. Normal myocardial perfusion imaging after vasodilator stress with Regadenoson. 2 . Normal left ventricular systolic function with a calculated ejection fraction of 67%. 3 . No obvious significant scintigraphic evidence of myocardial ischemia or scar. & #13;GC (06/11/2011) E chocardiogram: Normal left ventricular systolic function. Normal left ventricular size. Normal left ventricular wall thickness. There is E to A wave reversal consistent with impaired LV relaxation . Normal E/E` 9.0. Left ventricular ejection fraction is estimated at 60%. There is moderate enlargement of the left atrium. There is non-specific thickening of the mitral valve leaflets. Calcification of the posterior mitral valve leaflet. There is trace physiologic mitral valve regurgitation. 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 Normal left ventricular wall motion and systolic function. EF 60% - [facility] (03/18/2010) Dickson Ceja MD follow up Dickson Ceja MD follow up: H er updated medication list for this problem includes: Losartan Potassium-hctz 50-12.5 Mg Tabs (Losartan potassium-hctz) ..... 1 tab daily Dickson Ceja MD follow up: H er updated medication list for this problem includes: Buspirone Hcl 15 Mg Tabs (Buspirone hcl) ..... 1/2 tablet by mouth twice daily Dickson Ceja MD Follow-up, c/o eleva antonio bp : B P today: 118/68 Prior BP: 151/91 (07/07/2010) Dickson Ceja MD Follow-up, c/o eleva antonio bp : H er updated medication list for this problem includes: Losartan Potassium-hctz 50-12.5 Mg Tabs (Losartan potassium-hctz) ..... 1 tab daily BP today: 118/68 P rior BP: 151/91 (07/07/2010) Labs Reviewed: C reat: 0.86 (03/18/2010) Dickson Ceja MD Follow-up, c/o eleva antonio bp : H er updated medication list for this problem includes: Losartan Potassium-hctz 50-12.5 Mg Tabs (Losartan potassium-hctz) ..... 1 tab daily BP today: 118/68 Prior BP: 151/91 (07/07/2010) H gb: 12.0 (03/18/2010) HCT: 38.0 (03/18/2010) RBC: 4.42 (03/18/2010) WBC: 7.8 (03/18/2010) B UN: 14.5 (03/18/2010) Creat: 0.86 (03/18/2010) Glucose: 136 (03/18/2010) N a+: 141 (03/18/2010) K+: 4.2 (03/18/2010) Cl: 108 (03/18/2010) Anion Gap: 9.2 (03/18/2010) Calcium: 9.1 (03/18/2010) Nuclear Stress Findings: 1. Regadenoson mediated myocardial perfusion study 2 . Normal left ventricular systolic function with a calculated ejection fraction of 48%. 3 . Myocardial scintigraphy demonstrates inferolateral wall ischemia and a prior mid inferior infarct. GC (02/24/2010) E chocardiogram: Normal left ventricular systolic function. Normal left ventricular size. Normal left ventricular wall thickness. There is E to A wave reversal consistent with impaired LV relaxation . Normal E/E` 9.0. Left ventricular ejection fraction is estimated at 60%. There is moderate enlargement of the left atrium. There is non-specific thickening of the mitral valve leaflets. Calcification of the posterior mitral valve leaflet. There is trace physiologic mitral valve regurgitation. [facility] [place] C ardiac Cath: Mild to moderate atherosclerotic disease of the epicardial coronaries with no flow limiting lesions noted. Normal left ventricular wall motion and systolic function. EF 60% - [facility] (03/18/2010) Dickson Ceja MD Follow-up, c/o eleva antonio bp : O rders: S tress Test - Adenosine (75391) BP today: 118/68 Prior BP: 151/91 (07/07/2010) N uclear Stress Findings: 1. Regadenoson mediated myocardial perfusion study 2 . Normal left ventricular systolic function with a calculated ejection fraction of 48%. 3 . Myocardial scintigraphy demonstrates inferolateral wall ischemia and a prior mid inferior infarct. (02/24/2010) C ardiac Cath: Mild to moderate atherosclerotic disease of the epicardial coronaries with no flow limiting lesions noted. Normal left ventricular wall motion and systolic function. EF 60% - [facility] (03/18/2010) C arotid Doppler/Duplex: Normal [facility] [place] H gb: 12.0 (03/18/2010) HCT: 38.0 (03/18/2010) RBC: 4.42 (03/18/2010) WBC: 7.8 (03/18/2010) B UN: 14.5 (03/18/2010) Creat: 0.86 (03/18/2010) Glucose: 136 (03/18/2010) N a+: 141 (03/18/2010) K+: 4.2 (03/18/2010) Cl: 108 (03/18/2010) PT: 9.9 (02/07/2010) INR: 1.0 (02/07/2010) P TT: 26.7 (02/07/2010) Dickson Ceja MD Follow-up, c/o eleva antonio bp : H er updated medication list for this problem includes: Buspirone Hcl 15 Mg Tabs (Buspirone hcl) ..... 1/2 tablet by mouth twice daily BP today: 118/68 Prior BP: 151/91 (07/07/2010) H gb: 12.0 (03/18/2010) HCT: 38.0 (03/18/2010) RBC: 4.42 (03/18/2010) WBC: 7.8 (03/18/2010) B UN: 14.5 (03/18/2010) Creat: 0.86 (03/18/2010) Glucose: 136 (03/18/2010) N a+: 141 (03/18/2010) K+: 4.2 (03/18/2010) Cl: 108 (03/18/2010) Anion Gap: 9.2 (03/18/2010) Calcium: 9.1 (03/18/2010) Nuclear Stress Findings: 1. Regadenoson mediated myocardial perfusion study 2. Normal left ventricular systolic function with a calculated ejection fraction of 48%. 3 . Myocardial scintigraphy demonstrates inferolateral wall ischemia and a prior mid inferior infarct. [facility] (02/24/2010) E chocardiogram: Normal left ventricular systolic function. Normal left ventricular size. Normal left ventricular wall thickness. There is E to A wave reversal consistent with impaired LV relaxation . Normal E/E` 9.0. Left ventricular ejection fraction is estimated at 60%. There is moderate enlargement of the left atrium. There is non-specific thickening of the mitral valve leaflets. Calcification of the posterior mitral valve leaflet. There is trace physiologic mitral valve regurgitation. [facility] [place] C ardiac Cath: Mild to moderate atherosclerotic disease of the epicardial coronaries with no flow limiting lesions noted. Normal left ventricular wall motion and systolic function. EF 60% - [facility] (03/18/2010) Dickson Ceja MD Follow-up, c/o mecca alvarez bp : H er updated medication list for this problem includes: Losartan Potassium-hctz 50-12.5 Mg Tabs (Losartan potassium-hctz) ..... 1 tab daily Orders: R enal Artery Duplex ([id number]) BP today: 118/68 P rior BP: 151/91 (07/07/2010) Labs Reviewed: C reat: 0.86 (03/18/2010) Dickson Ceja MD follow up: B P today: 151/91 Prior BP: 149/97 (03/11/2010) Dickson Ceja MD follow up: B P today: 151/91 Prior BP: 149/97 (03/11/2010) H gb: 12.0 (03/18/2010) HCT: 38.0 (03/18/2010) RBC: 4.42 (03/18/2010) WBC: 7.8 (03/18/2010) B UN: 14.5 (03/18/2010) Creat: 0.86 (03/18/2010) Glucose: 136 (03/18/2010) N a+: 141 (03/18/2010) K+: 4.2 (03/18/2010) Cl: 108 (03/18/2010) Anion Gap: 9.2 (03/18/2010) Calcium: 9.1 (03/18/2010) Nuclear Stress Findings: 1. Regadenoson mediated myocardial perfusion study 2 . Normal left ventricular systolic function with a calculated ejection fraction of 48%. 3 . Myocardial scintigraphy demonstrates inferolateral wall ischemia and a prior mid inferior infarct. (02/24/2010) E chocardiogram: Normal left ventricular systolic function. Normal left ventricular size. Normal left ventricular wall thickness. There is E to A wave reversal consistent with impaired LV relaxation . Normal E/E` 9.0. Left ventricular ejection fraction is estimated at 60%. There is moderate enlargement of the left atrium. There is non-specific thickening of the mitral valve leaflets. Calcification of the posterior mitral valve leaflet. There is trace physiologic mitral valve regurgitation. O (02/24/2010) C ardiac Cath: Mild to moderate atherosclerotic disease of the epicardial coronaries with no flow limiting lesions noted. Normal left ventricular wall motion and systolic function. EF 60% - [facility] (03/18/2010) Dickson Ceja MD follow up: B P today: 151/91 Prior BP: 149/97 (03/11/2010) N uclear Stress Findings: 1. Regadenoson mediated myocardial perfusion study 2 . Normal left ventricular systolic function with a calculated ejection fraction of 48%. 3 . Myocardial scintigraphy demonstrates inferolateral wall ischemia and a prior mid inferior infarct. (02/24/2010) C ardiac Cath: Mild to moderate atherosclerotic disease of the epicardial coronaries with no flow limiting lesions noted. Normal left ventricular wall motion and systolic function. EF 60% - [facility] (03/18/2010) C arotid Doppler/Duplex: Normal [facility] [place] H gb: 12.0 (03/18/2010) HCT: 38.0 (03/18/2010) RBC: 4.42 (03/18/2010) WBC: 7.8 (03/18/2010) B UN: 14.5 (03/18/2010) Creat: 0.86 (03/18/2010) Glucose: 136 (03/18/2010) N a+: 141 (03/18/2010) K+: 4.2 (03/18/2010) Cl: 108 (03/18/2010) PT: 9.9 (02/07/2010) INR: 1.0 (02/07/2010) P TT: 26.7 (02/07/2010) Dickson Ceja MD follow up: B P today: 151/91 Prior BP: 149/97 (03/11/2010) N uclear Stress Findings: 1. Regadenoson mediated myocardial perfusion study 2 . Normal left ventricular systolic function with a calculated ejection fraction of 48%. 3 . Myocardial scintigraphy demonstrates inferolateral wall ischemia and a prior mid inferior infarct. (02/24/2010) C ardiac Cath: Mild to moderate atherosclerotic disease of the epicardial coronaries with no flow limiting lesions noted. Normal left ventricular wall motion and systolic function. EF 60% - [facility] (03/18/2010) C arotid Doppler/Duplex: Normal [facility] [place] H gb: 12.0 (03/18/2010) HCT: 38.0 (03/18/2010) RBC: 4.42 (03/18/2010) WBC: 7.8 (03/18/2010) B UN: 14.5 (03/18/2010) Creat: 0.86 (03/18/2010) Glucose: 136 (03/18/2010) N a+: 141 (03/18/2010) K+: 4.2 (03/18/2010) Cl: 108 (03/18/2010) PT: 9.9 (02/07/2010) INR: 1.0 (02/07/2010) P TT: 26.7 (02/07/2010) E chocardiogram: Normal left ventricular systolic function. Normal left ventricular size. Normal left ventricular wall thickness. There is E to A wave reversal consistent with impaired LV relaxation . Normal E/E` 9.0. Left ventricular ejection fraction is estimated at 60%. There is moderate enlargement of the left atrium. There is non-specific thickening of the mitral valve leaflets. Calcification of the posterior mitral valve leaflet. There is trace physiologic mitral valve regurgitation. O (02/24/2010) Dickson Ceja MD follow up: B P today: 151/91 Prior BP: 149/97 (03/11/2010) H gb: 12.0 (03/18/2010) HCT: 38.0 (03/18/2010) RBC: 4.42 (03/18/2010) WBC: 7.8 (03/18/2010) B UN: 14.5 (03/18/2010) Creat: 0.86 (03/18/2010) Glucose: 136 (03/18/2010) N a+: 141 (03/18/2010) K+: 4.2 (03/18/2010) Cl: 108 (03/18/2010) Anion Gap: 9.2 (03/18/2010) Calcium: 9.1 (03/18/2010) Nuclear Stress Findings: 1. Regadenoson mediated myocardial perfusion study 2 . Normal left ventricular systolic function with a calculated ejection fraction of 48%. 3 . Myocardial scintigraphy demonstrates inferolateral wall ischemia and a prior mid inferior infarct. (02/24/2010) E chocardiogram: Normal left ventricular systolic function. Normal left ventricular size. Normal left ventricular wall thickness. There is E to A wave reversal consistent with impaired LV relaxation . Normal E/E` 9.0. Left ventricular ejection fraction is estimated at 60%. There is moderate enlargement of the left atrium. There is non-specific thickening of the mitral valve leaflets. Calcification of the posterior mitral valve leaflet. There is trace physiologic mitral valve regurgitation. O (02/24/2010) C ardiac Cath: Mild to moderate atherosclerotic disease of the epicardial coronaries with no flow limiting lesions noted. Normal left ventricular wall motion and systolic function. EF 60% - [facility] (03/18/2010) Dickson Ceja MD test [id number] f/u: B P today: 149/97 Prior BP: / () Dickson Ceja MD test [id number] f/u: B P today: 149/97 Dickson Ceja MD test [id number] f/u: B P today: 149/97 Prior BP: / () N uclear Stress Findings: 1. Regadenoson mediated myocardial perfusion study 2 . Normal left ventricular systolic function with a calculated ejection fraction of 48%. 3 . Myocardial scintigraphy demonstrates inferolateral wall ischemia and a prior mid inferior infarct. (02/24/2010) E chocardiogram: Normal left ventricular systolic function. Normal left ventricular size. Normal left ventricular wall thickness. There is E to A wave reversal consistent with impaired LV relaxation . Normal E/E` 9.0. Left ventricular ejection fraction is estimated at 60%. There is moderate enlargement of the left atrium. There is non-specific thickening of the mitral valve leaflets. Calcification of the posterior mitral valve leaflet. There is trace physiologic mitral valve regurgitation. O (02/24/2010) Dickson Ceja MD test [id number] f/u: B P today: 149/97 Prior BP: / () N uclear Stress Findings: 1. Regadenoson mediated myocardial perfusion study 2 . Normal left ventricular systolic function with a calculated ejection fraction of 48%. 3 . Myocardial scintigraphy demonstrates inferolateral wall ischemia and a prior mid inferior infarct. (02/24/2010) C arotid Doppler/Duplex: Normal [facility] (02/24/2010) Orders: C ardiac Cath - (*) Dickson Ceja MD Date Name CBC (INCLUDES DIFF/P LT) BASIC METABOLIC PANE L W/EGFR LIPID PANEL PROBNP, N TERMINAL Complete Echo X-Ray, Chest - Routi ne Stress Regadenoson Complete Echo DLCO - 68981 FRC - 11191 FVC - 78097 CBC (INCLUDES DIFF/P LT) FERRITIN IRON AND TOTAL IRON BINDING CAPACITY LIPID PANEL Vitamin D, 25-Hydrox y VITAMIN B12/FOLATE, SERUM PANEL THYROID PANEL THYROID PANEL VITAMIN B12/FOLATE, SERUM PANEL Vitamin D, 25-Hydrox y LIPID PANEL IRON AND TOTAL IRON BINDING CAPACITY FERRITIN CBC (INCLUDES DIFF/P LT) CBC (INCLUDES DIFF/P LT) UA, complete w/refle x to culture PROTHROMBIN TIME WIT H INR Partial Thromboplast in Time, Activated BASIC METABOLIC PANE L W/EGFR VITAMIN B12 Vitamin D, 25-Hydrox y MAGNESIUM CALCIUM IRON AND TOTAL IRON BINDING CAPACITY FERRITIN CBC (INCLUDES DIFF/P LT) COMPREHENSIVE METABO LIC PANEL, W/EGFR LIPID PANEL Vitamin D, 25-Hydrox y CBC (INCLUDES DIFF/P LT) TSH, 3RD GENERATION BASIC METABOLIC PANE L W/EGFR TSH, 3RD GENERATION LIPID PANEL Vitamin D, 25-Hydrox y TSH, GENERATION T-4, FREE IRON AND TOTAL IRON BINDING CAPACITY FERRITIN CBC (INCLUDES DIFF/P LT) COMPREHENSIVE METABO LIC PANEL, W/EGFR IRON AND TOTAL IRON BINDING CAPACITY FERRITIN CBC (INCLUDES DIFF/P LT) IRON AND TOTAL IRON BINDING CAPACITY FERRITIN URINALYSIS, COMPLETE COMPREHENSIVE METABO LIC PANEL, W/EGFR CBC (INCLUDES DIFF/P LT) Partial Thromboplast in Time, Activated PROTHROMBIN TIME WIT H INR Pacemaker Dual Chamb er - [facility] HEPATIC FUNCTION RECINOS EL URINALYSIS, COMPLETE Partial Thromboplast in Time, Activated PARTIAL THROMBOPLAST IN TIME, ACTIVATED URINALYSIS, COMPLETE W/REFLEX TO CULTURE HEPATIC FUNCTION RECINOS EL Pacemaker Dual Chamb er - [facility] EP Study w/anesthesi a PROTHROMBIN TIME WIT H INR LIPID PANEL CBC (INCLUDES DIFF/P LT) BASIC METABOLIC PANE L W/EGFR Loop Rec Implant - G C CT Head without cont rast Carotid Duplex Bilat eral CXR- PA/Lat COMPREHENSIVE METABO LIC PANEL, W/EGFR C-REACTIVE PROTEIN Mobile Cardiac Tele BASIC METABOLIC PANE L W/EGFR URINALYSIS, RANDOM, MICROALB/CREATININE HEMOGLOBIN A1c BASIC METABOLIC PANE L W/EGFR PROBNP, N TERMINAL FOLATE, SERUM VITAMIN B12 PROTHROMBIN TIME WIT H INR CBC (INCLUDES DIFF/P LT) IRON AND TOTAL IRON BINDING CAPACITY FERRITIN CBC (INCLUDES DIFF/P LT) DLCO - 51129 FRC - 03188 FVC - 89594 CT, Coronary Calcium Score LIPID PANEL Vitamin D, 25-Hydrox y LIPID PANEL STR - Adenosine Complete Echo IRON AND TOTAL IRON BINDING CAPACITY FERRITIN CBC (INCLUDES DIFF/P LT) URINALYSIS, COMPLETE W/REFLEX TO CULTURE URINALYSIS, COMPLETE W/REFLEX TO CULTURE Complete Echo STR - Adenosine Renal Artery Duplex Gallbladder Ultrasou nd Stress Test - Adenos ine Cardiac Cath - GC HISTORY OF PROCEDURES Procedure Date Procedure Name Provider Procedure Notes S tatus EKG Dickson Ceja MD complete d Spirometry Dickson Ceja MD complete d FVC / MVV with bronchodilator - 41662 Dickson Ceja MD completed FRC - 18716 Dickson Ceja MD complet ed SpO2 w/o 6min walk/titration Dickson Ceja MD completed SVC - 84413 Dickson Ceja MD complet ed DLCO - 36563 Dickson Ceja MD comple antonio EKG Dickson Ceja MD complete d EKG Dickson Ceja MD complete d EKG Dickson Ceja MD complete d ICM Interrogation, Remote (Prof) Dickson Ceja MD INTERROGATION EVAL REMOTE </30 D CV MNTR SYS completed ICM Interrogation, Remote (Tech) Dickson Ceja MD INTERROGATION EVAL REMOTE </30 D TECH REVIEW completed ICM Interrogation, Remote (Prof) Dickson Ceja MD INTERROGATION EVAL REMOTE </30 D CV MNTR SYS completed ICM Interrogation, Remote (Tech) Dickson Ceja MD INTERROGATION EVAL REMOTE </30 D TECH REVIEW completed ICM Interrogation, Remote (Prof) Dickson Ceja MD INTERROGATION EVAL REMOTE </30 D CV MNTR SYS completed Pacemaker Interrogation, Remote (Tech) Dickson Ceja MD INTERROGATION REMOTE </90 D INFECTION CONTROL SPECIALIST REVIEW completed Pacemaker Interrogation, Remote (Prof) Dickson Ceja MD INTERROGATION EVAL REMOTE </90 D 1/2/OCCUPATIONAL HEALTH NURSING DIRECTOR LEAD P completed ICM Interrogation, Remote (Prof) Dickson Ceja MD INTERROGATION EVAL REMOTE </30 D CV MNTR SYS completed ICM Interrogation, Remote (Tech) Dickson Ceja MD INTERROGATION EVAL REMOTE </30 D TECH REVIEW completed ICM Interrogation, Remote (Prof) Dickson Ceja MD INTERROGATION EVAL REMOTE </30 D CV MNTR SYS completed ICM Interrogation, Remote (Tech) Dickson Ceja MD INTERROGATION EVAL REMOTE </30 D TECH REVIEW completed Injectafer 750mg Dickson Ceja MD co mpleted Therapeutic IV Infus ion up to 1 hour Dickson Ceja MD completed Injectafer 750mg Dickson Ceja MD co mpleted Therapeutic IV Infus ion up to 1 hour Dickson Ceja MD completed EKG Martha Palmer MD complet ed Indra Palmer MD complet ed Indra Alvarado MD completed Indra Menchaca MD completed Schedule Followup Tg myers MD after all testing completed EKG Tg garcia MD completed FVC / MVV - 39297 Alexandru Colon MD c ompleted FRC - 28102 Alexandru Colon MD complet ed SpO2 w/o 6min walk/titration Alexandru Colon MD completed DLCO - 11298 Alexandru Colon MD comple antonio Regadenoson, 4 units Dickson Ceja MD completed Cardiolite, 2 units Dickson Ceja MD completed SPECT Images Amira Diamond MD complet ed Stress EKG Dickson Ceja MD complete d EKG Alexandru Colon MD complete d EKG Dickson Ceja MD complete d Injectafer 750mg Dickson Ceja MD co mpleted Therapeutic IV Infus ion up to 1 hour Dickson Ceja MD completed Injectafer 750mg Dickson Ceja MD co mpleted Therapeutic IV Infus ion up to 1 hour Dickson Ceja MD completed SNOMED-CT: [id number] Current Medications Documented Dickson Ceja MD completed Stress EKG Amira Diamond MD completed Regadenoson, 4 units Dickson Ceja MD completed Cardiolite, 2 units Dickson Ceja MD completed SPECT Images Amira Diamond MD complet ed SNOMED-CT: [id number] Current Medications Documented Dickson Ceja MD completed EKG KEITH LUCIO MD completed EKG Dickson Ceja MD complete d EKG Dickson Ceja MD complete d
--- OUTSIDE RECORDS SUMMARY | 2024-09-07 13:19 | XMS_ITS | Clinical Summary ---
Author Organization [facility] Address [address] [place] [phone] Phone Care Team Providers Care Intelligence Manager Name Role Phone Eligio Menezes DO Primary Care Provider [phone] Allergies Active Allergy Reactions Criticality Noted Date Comments Cephalexin Rash Low 05/05/2022 Doxycycline 10/09/2021 rash Ketamine Hallucinations Medium 05/02/2018 Penicillins Rash Low 07/15/2015 Reaction: RASH, Statins 10/04/2018 Other reaction(s): statins intolerant Medications Medication Sig Dispensed Refills Start Date End Date Status amiodarone (PACERONE) 200 MG tablet amiodarone 200 mg tablet 05/10/2018 Active apixaban (Eliquis) 5 MG tablet Eliquis 5 mg tablet 02/23/2021 Acti ve b complex vitamins capsule Take 1 capsule by mouth daily Active Cholecalciferol 100 MCG (4000 UT) capsule Active Evolocumab (Repatha SureClick) 140 MG/ML solution auto-injector Repatha SureClick 140 mg/mL pen injector 01/16/2019 Active cetirizine (ZyrTEC) 10 MG tablet Take by mouth 06/13/1969 Active hydrOXYzine (ATARAX) 50 MG tablet Take by mouth 06/13/1969 Active levothyroxine (SYNTHROID) 100 MCG tablet levothyroxine 100 mcg tablet 02/20/2019 Active losartan-hydroCHLOR Othiazide (HYZAAR) 50-12.5 MG per tablet Take by mouth Take 1/2 daily 09/04/2019 Active zolpidem (Ambien) 10 MG tablet Ambien 10 mg tablet 06/13/1969 Act puneet Omalizumab 150 MG/ML solution prefilled syringe Inject under the skin Active sertraline (ZOLOFT) 25 MG tablet Take 25 mg by mouth 1 (one) time each day Active Active Problems Problem Noted Date Diagnosed Date Essential (primary) hypertension 10/09/2021 Chronic kidney disease stage 3A 10/09/2021 Atrial fibrillation 08/15/2018 Encounter for screening for cardiovascular disor briana 03/28/2018 Chronic diastolic congestive heart failure 02/23 Vitamin D deficiency 02/22/2018 Acute urinary tract infection 12/05/2017 Chronic cystitis 03/05/2010 Hyperlipidemia 03/05/2010 Chest pain 06/13/1959 Immunizations Name Administration Dates Next Due Influenza TIV (IM) 03/13/2022 Family History Medical History Relation Comments Kidney disease Father Kidney disease Mother Relation Status Comments Father Mother Social History Tobacco Use Types Packs/Day Years Used Date Smoking Tobacco: Never Smokeless Tobacco: Never Tobacco Cessation:Counseling Given: Not Answered Alcohol Use Standard Drinks/Week Comments Not Currently 0 (1 standard drink = 0.6 oz pur e alcohol) Sex and Gender Information Value Date Recorded Sex Assigned at Not on file Gender Identity Not on file Sexual Orientation Not on file Last Filed Vital Signs Vital Sign Reading Time Taken Comments Blood Pressure 116/70 05/11/2022 10:14 AM GIS APPLICATION DEVELOPER Pulse 72 05/11/2022 10:14 AM GIS APPLICATION DEVELOPER Temperature 35.6 C (96 F) 05/11/2022 10:14 AM GIS APPLICATION DEVELOPER Respiratory Rate - - Oxygen Saturation - - Inhaled Oxygen Concentration - - Weight 77.1 kg (170 lb) 05/11/2022 10:14 AM GIS APPLICATION DEVELOPER Height 160 cm (5' 3 ) 05/11/2022 10:14 AM GIS APPLICATION DEVELOPER Body Mass Index 30.11 05/11/2022 10:14 AM GIS APPLICATION DEVELOPER Plan of Treatment Health Maintenance Due Date Last Done Comments Pneumococcal PPSV23/PCV13 65 + Years / High and Highest Risk (1 of 4 - PCV) 12/10/1951 Influenza Vaccine (#1) 2024 03/13/2022 Care Teams Intelligence Manager Relationship Specialty Start Date End Date Eligio Menezes DO [address] [place] [id number] PCP - General Internal Medicine 09/15/21
--- OUTSIDE RECORDS SUMMARY | 2024-09-07 13:19 | XMS_ITS | Encounter Summary ---
Author Organization [facility] Healthcare Address [address] [place] [address] Care Team Providers Care Customs And Border Protection Inspector Name Role Phone Unavailable Primary Care Provider Unavailabl e Reason for Visit * Diagnostic Imaging (Routine) - Pending Review Specialty Diagnoses / Procedures Referred By Contac t Referred To Contact Procedures Breast Imaging Screening Outside Reference Aft, Tete Juarez MD PhD [address] [place] [address] Phone: tel: fax: Referral ID Status Reason Start Date Expiration Date V isits Requested Visits Authorized [id number] Pending Review 02/15/2024 03/16/2025 1 1 Encounter Details Date Type Department Care Team (Late st Contact Info) Description 06/08/2017 Hospital Encounter [facility] [address] [place] [address] Social History Tobacco Use Types Packs/Day Years [...] on file Legal Sex 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 There will be no report generated by a [facility] Radiologist. Narrative [facility] - 02/15/2024 6:24 PM CDT EXAMINATION: Images For Reference Purposes Only us Tete Acevedo MD PhD IMG MAMMO PROCEDURES Final Result [email or web address] documented in this encounter Visit Diagnoses Not on filedocumented in this encounter
--- OUTSIDE RECORDS SUMMARY | 2024-09-07 13:19 | XMS_ITS | Clinical Summary ---
Author Organization [facility] Address [address] [place] [address] Care Team Providers Care Hose Tester Name Role Phone Almas Bravo MD Primary Care Provider [phone] Allergies Active Allergy Reactions Criticality Noted Date Comments Doxycycline Rash,Itching Low 05/24/2024 Ketamine Hallucination Low 05/24/2024 Penicillin Itching Low 05/24/2024 Medications amitriptyline (ELAVIL) 10 mg tablet Take 10 mg by mouth daily at bedtime. Active Eliquis 5 mg tablet Take 5 mg by mouth 2 times daily. 03/01/20 23 Active azithromycin (ZITHROMAX) 250 mg tablet Take 250 mg by mouth daily. 04/11/20 24 Active betamethasone dipropionate (DIPROSONE) 0.05 % Lotion by See Admin Instructions route daily. 04/03/20 24 Active cephALEXin (KEFLEX) 500 mg capsule Take 500 mg by mouth 4 times daily. 04/01/20 24 Active cycloSPORINE (RESTASIS) 0.05 % emulsion Administer 1 Drop in both eyes see administration instructions. 02/17/20 24 Active cetirizine (ZyrTEC) 10 mg tablet Take 10 mg by mouth daily. Active Docusate Sodium 100 mg Tablet Take 100 mg by mouth one time as needed. Active Repatha SureClick 140 mg/mL Pen Injector 140 mg by See Admin Instructions route one time only. 07/06/19 24 Active Ambien 10 mg tablet Take 5 mg by mouth nightly as needed. Active VITAMIN B COMPLEX ORAL Take 1 Capsule by mouth daily. Active sertraline (ZOLOFT) 25 mg tablet Take 25 mg by mouth daily. Active sertraline (ZOLOFT) 100 mg tablet Take 100 mg by mouth daily. Active potassium citrate (UROCIT-K) 10 mEq (1,080 mg) Extended Release tablet Take 10 mEq by mouth 2 times daily. 11/30/19 Active polyethylene glycol 3350 (MIRALAX) 17 gram/dose Powder Take 17 Grams by mouth daily. 03/07/20 24 Active omalizumab (Xolair) 150 mg/mL Auto-Injector Inject 1 mL by subcutaneous injection every 21 days. Active mupirocin (BACTROBAN) 2 % Ointment by See Admin Instructions route see administration instructions. 03/30/20 Active tamoxifen (NOLVADEX) 20 mg tablet Take 1 Tablet (20 mg) by mouth daily. 90 Tablet 2 06/27/19 Active Active Problems No known active problems Encounters Date Type Department Care Team Description 08/01/2024 External Device Data [facility] ABSTRACTION Provider, Abstract 07/11/2024 External Device Data [facility] ABSTRACTION Provider, Abstract 07/05/2024 External Device Data [facility] ABSTRACTION Provider, Abstract 07/05/2024 External Device Data [facility] ABSTRACTION Provider, Abstract 06/27/2024 3:30 PM PROVIDER NETWORK MANAGER Office Visit [facility] Oncology and Hematology [facility] [address] [place] [address] Danielito Telles MD 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, estrogen receptor positive, unspecified laterality, unspecified site of breast (CMS/HCC) (Primary Dx) 06/12/2024 Abstract [facility] Oncology and [facility] [address] [place] [address] Danielito Telles MD from Last 3 Months Family History Medical History Relation Name Comments Heart Disease Brother 1 Heart Disease Brother 2 Heart Disease Brother 3 Stroke Brother 4 Atrial fibrillation Child 1 COPD Child 1 Diabetes Child 1 Ovarian Cancer Child 2 No Known Problems Child 3 Heart Attack Father Angina Mother Colon Cancer Mother Throat Cancer Mother Relation Name Status Comments Brother 1 Brother 2 Brother 3 Brother 4 Child 1 Alive Child 2 Child 3 Alive Father Mother Social History Tobacco Use Types Packs/Day Years Used Date Smoking Tobacco: Never Smokeless Tobacco: Never Tobacco Cessation:Counseling Given: Not Answered Alcohol Use Standard Drinks/Week Comments Yes 0 (1 standard drink = 0.6 oz pur e alcohol) Ocasionally Comments Unknown Sex and Gender Information Value Date Recorded Sex Assigned at Not on file Legal Sex Female 8:13 AM PROVIDER NETWORK MANAGER Gender Identity Not on file Sexual Orientation Not on file Last Filed Vital Signs Vital Sign Reading Time Taken Comments Blood Pressure 167/88 06/27/2024 3:13 PM PROVIDER NETWORK MANAGER Patient forgot to take medication for BP Pulse 81 06/27/2024 3:13 PM PROVIDER NETWORK MANAGER Temperature 36.4 C (97.6 F) 06/27/2024 3:13 PM PROVIDER NETWORK MANAGER Respiratory Rate 14 06/27/2024 3:13 PM PROVIDER NETWORK MANAGER Oxygen Saturation 94% 06/27/2024 3:1 3 PM PROVIDER NETWORK MANAGER Inhaled Oxygen Concentration - - Weight 76.2 kg (168 lb) 06/27/2024 3:13 PM PROVIDER NETWORK MANAGER Height - - Body Mass Index - - Plan of Treatment Upcoming Encounters Date Type Department Care Team (Late st Contact Info) Description 10/24/2024 2:45 PM CDT Office Visit [facility] Oncology and Hematology [facility] [address] [place] [address] [facility] [address] [place] [address] Danielito Telles MD [address] [facility] [address] [place] [address] Health Maintenance Due Date Last Done Comments DTAP/TDAP/TD VACCINES (1 - Tdap) 1964 PNEUMOCOCCAL VACCINE 50+ YEARS (1 of 2 - PCV) 12/09/18 65 ZOSTER VACCINE (1 of 2) 12/10/1995 OSTEOPOROSIS SCREENING 2010 RSV VACCINE (60+ or ) (1 - 1-dose 75+ series) 2020 INFLUENZA VACCINE (#1) 2024 03/13/2022 Procedures Procedure Name Priority Date/Time Associated Diagnosis Comments [facility] XG CANCERNEXT AND XG+ CANCERNEXT-EXPANDED Routine 06/11/2024 10:27 PM PROVIDER NETWORK MANAGER 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, estrogen receptor positive, unspecified laterality, unspecified site of breast (CMS/HCC) from Last 3 Months Results * [facility] XG CANCERNEXT AND XG+ CANCERNEXT-EXPANDED (06/11/2024 10:27 PM PROVIDER NETWORK MANAGER) [facility] [email or web address] [id number] 06/11/2024 10:27 PM PROVIDER NETWORK MANAGER [facility] Comment:[facility] link Interpretation Report See Notes 06/11/2024 10:27 PM PROVIDER NETWORK MANAGER [facility] Comment: No pathogenic mutations, variants of unknown significance, or gross deletions or duplications were detected. Risk Estimate: low likelihood of variants in the genes analyzed contributing to this individual's clinical history. Genetic counseling is a recommended option for all individuals undergoing genetic testing. Genes Analyzed (36 total): APC, JASPREET, BARD1, BMPR1A, BRCA1, BRCA2, BRIP1, CDH1, CDK4, CDKN2A, CHEK2, DICER1, MLH1, MSH2, MSH6, MUTYH, NBN, NF1, NTHL1, PALB2, PMS2, PTEN, RAD51C, RAD51D, RECQL, SMAD4, SMARCA4, STK11 and TP53 (sequencing and deletion/duplication); AXIN2, HOXB13, MSH3, POLD1 and POLE (sequencing only); EPCAM and GREM1 (deletion/duplication only). Overall Interpretation NEGATIVE: No Clinically Significant Variants Detected 06/11/2024 10:27 PM PROVIDER NETWORK MANAGER [facility] Genes analyzed APC,JASPREET,BARD1, BMPR1A,BRIP1,C DH1,CDKN2A,ANISH K2,DICER1,EPCA M,MLH1,MSH2,MS H6,MUTYH,NBN,P ALB2,PMS2,PTEN ,RAD51C,RAD51D ,SMAD4,STK11,T P53,CDK4,NF1,B RCA1,BRCA2,NTH L1,RECQL,SMARC A4,GREM1,MSH3, POLD1,POLE,AXI N2,HOXB13 06/11/2024 10:27 PM PROVIDER NETWORK MANAGER [facility] Blood specimen (specimen) 06/11/2024 10:30 PM PROVIDER NETWORK MANAGER Danielito Telles MD MOLECULAR ORDERABLES Final Resu lt [facility] [address] [place] [address], [facility] [address] [place] [address] from Last 3 Months Insurance [employer] PPO MCR [facility] PPO NAYE SINGH [id number] Care Teams Hose Tester Relationship Specialty Start Date End Date Almas Bravo MD [address] [place] [address] PCP - General Family Practice 06/27/24
--- OUTSIDE RECORDS SUMMARY | 2024-09-07 13:19 | XMS_ITS | Clinical Summary ---
Author Organization [address] Address [address] [place] [address] Care Team Providers Care Process Camera Operator Name Role Phone Almas Bravo MD Primary Care Provider [phone] Mark Eduardo MD Unavailable [phone] Aft, Tete Juarez MD PhD Unavailable [phone] Allergies Active Allergy Reactions Criticality Noted Date Comments Cephalexin Rash Medium 05/05/2022 Doxycycline Rash Medium 10/09/2021 rash Ketamine Hallucinations Medium 05/02/2018 Penicillins Rash Medium Reaction: RASH, Medications zolpidem (AMBIEN) 10 mg tabletIndication s:Sleep-Onset Insomnia Take 1 tablet (10 mg total) by mouth nightly as needed for sleep 1 8 Active b complex vitamins capsuleIndicatio ns:Vitamin Deficiency Prevention Take 1 capsule by mouth hide mill worker before breakfast Active ketoconazole (NIZORAL) 2 % shampoo Apply 1 Application topically as needed for dandruff 3 8 Active magnesium oxide 400 mg capsuleIndicatio ns:hypomagnesemi a,kidney Disease Take 400 mg by mouth 2 (two) times a day Active cholecalciferol (VITAMIN D-3) 4,000 unit capsuleIndicatio ns:Prevention of Vitamin D Deficiency Take 1 capsule (4,000 Units total) by mouth hide mill worker before breakfast Active REPATHA SURECLICK 140 mg/mL pen injectorIndicati ons:hypercholest erolemia Inject 1 mL (140 mg total) as directed every 2 (two) weeks 6 9 Active Eliquis 5 mg tabletIndication s:atrial fibrillation Take 1 tablet (5 mg total) by mouth 2 (two) times a day 1 Active amitriptyline (ELAVIL) 10 mg tabletIndication s:IS Take 1 tablet (10 mg total) by mouth nightly Active multivitamin-min -iron-FA-vit K (Bariatric Multivitamins) 45 mg iron- 800 mcg-120 mcg capsuleIndicatio ns:Mineral Deficiency Prevention,Vitam in Deficiency Prevention Take 1 tablet by mouth hide mill worker before breakfast Active losartan-hydroCH LOROthiazide (HYZAAR) 50-12.5 mg per tabletIndication s:hypertension Take 1 tablet by mouth every other day 0 Active hydrOXYzine (ATARAX) 50 mg tablet Take 1 tablet (50 mg total) by mouth every 6 (six) hours as needed for allergies 9 Active docusate sodium (Stool Softener) 100 mg tablet Take 1 tablet (100 mg total) by mouth 2 (two) times a day as needed for constipation Active sertraline (ZOLOFT) 25 mg tabletIndication s:Generalized Anxiety Disorder Take 4 tablets (100 mg total) by mouth hide mill worker before breakfast Active omalizumab (Xolair) 150 mg/mL auto-injectorInd ications:Chronic Idiopathic Urticaria,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 Inject 1 mL under the skin every 30 (thirty) days Active cycloSPORINE (RESTASIS) 0.05 % ophthalmic emulsion Administer 1 drop into both eyes as needed 4 Active levothyroxine (SYNTHROID) 75 mcg tabletIndication s:hypothyroidism Take 1 tablet (75 mcg total) by mouth hide mill worker before breakfast 4 Active lidocaine (LIDODERM) 5 % Place 1 patch on the skin as needed for pain 4 Active potassium citrate ER (UROCIT-K) 10 mEq (1,080 mg) CR tabletIndication s:Urate Renal Calculi Take 1 tablet (10 mEq total) by mouth 2 (two) times a day 4 Active ELDERBERRY FRUIT ORALIndications: supplement Take 1 tablet by mouth hide mill worker before breakfast Active HYDROcodone-acet aminophen (NORCO) 5-325 mg per tabletIndication s:Pain Take 1 tablet by mouth every 6 (six) hours as needed for pain (pain not controlled by other medicines. Take stool softeners to prevent constipation.) 8 tablet 4 Active polyethylene glycol (MIRALAX) 17 gram/dose bulk powder Take 17 g by mouth daily for 7 days 119 g 4 Active Active Problems Problem Noted Date Diagnosed Date Malignant neoplasm of right female breast 2023 Degeneration of lumbar intervertebral disc 02/09 Assessment & Plan (02/09/2019 3:55 PM CDT): Patient has a grade 1 spondylolisthesis with spondylosis is noted throughout the lumbar spine and some disc space narrowing. This likely producing lateral recess stenosis and irritation of the nerve roots with sciatica to the right leg. Pain management may be helpful however the patient also has urinary incontinence over the last two week with history of cystitis would like to check a urinalysis. If she does not have a urinary tract infection CT of her back would likely be helpful to evaluate her for stenosis. The patient cannot get an MRI she has a pacemaker Arthritis, hip 02/09/2019 Assessment & Plan (02/09/2019 3:53 PM CDT): Patient has mild to moderate arthritic changes of the right hip. Long-term weight loss would likely be beneficial. Sacroiliitis, not elsewhere classified 9 Assessment & Plan (02/09/2019 3:55 PM CDT): Patient has moderate radiographic arthritic changes at her sacroiliac joint with some localized tenderness. Pain management may be helpful. Arthritis of right knee 03/03/2018 Assessment & Plan (02/09/2019 3:53 PM CDT): The patient has radicular pains which are extensive throughout the right leg are not likely related to her knee issues. This probably explains why the cortisone injection for the knee was not helpful for the leg pains Assessment & Plan (09/05/2018 1:45 PM CDT): After reviewing the treatment options patient elected undergo a follow-up cortisone injection which was given through a sterile field today. She tolerated the procedure well. Long-term weight loss would likely be beneficial Assessment & Plan (03/03/2018 3:26 PM CDT): Patient has moderate arthritis of the knee with reactive synovitis as result of her fall. After reviewing the treatment options patient elected undergo a cortisone injection. Injection was given through a sterile field she tolerated the procedure well. She was encouraged to stretch before rising from a chair and avoid low seating. She is return the office as needed Rectal hemorrhage 02/17/2012 Anal fissure 12/23/2011 Chronic ulcerative proctitis 12/23/2011 Anal pain 11/10/2011 Rectal pain 11/10/2011 Disorder of muscle, ligament, and fascia 012 Epigastric pain 08/17/2011 Hernia, incisional 01/05/2011 Surgical History Surgery Date Site/Laterality Comments MA OPEN IMPLANTATION NARESH SACRAL NERVE 01/13/2024 - 02/12/2024 Install Sacral Nerve Neurostimulator By Incision - done 05/25/2001 (Added by TW Conv) GASTRIC BYPASS 06/14/1989 - 06/13/1990 x4-last 1989 HERNIA REPAIR 06/14/2011 - 06/13/2012 x6, last 2011 HYSTERECTOMY 06/14/1977 - 06/13/1978 partial KIDNEY STONE SURGERY 06/14/2020 - 06/13/20212014 OTHER SURGICAL HISTORY 06/14/2023 - 06/13/2024 interstem implant in buttocks OTHER SURGICAL HISTORY Left loop recorder-removed TREATMENT FISTULA ANAL early COLONOSCOPY 03/14/2023 - 04/13/2023 INSERT / REPLACE / REMOVE PACEMAKER 06/14/2019 - 06/13/2020 x3-in 18months HEMORROIDECTOMY Medical History Medical History Date Comments Personal history of urinary disorder Reported Prior Urinary Disorder - (Added by TW Conv) Abnormal weight loss Losing weig ht - (Added by TW Conv) Personal history of other en docrine, nutritional and metabolic disease History of thyroid d isease - (Added by TW Conv) Personal history of other di seases of the circulatory system History of hypertension - (A dded by TW Conv) Insomnia Dizzy spells Anemia SOB (shortness of breath) Abnormal stress test Palpitations GERD (gastroesophageal reflux disease) History of kidney stones Hypothyroidism Interstitial cystitis Anxiety and depression Arthritis Hypertension Family History Medical History Relation Name Comments Heart disease Brother 1 Family history of cardiac disorder - (Added by TW Conv) Stroke Brother 2 Family history of cerebrovascular accident (CVA) - (Added by TW Conv) Ovarian cancer Daughter Heart disease Father Family history of cardiac disorder - (Added by TW Conv) Colon cancer Mother Colon cancer - (Added by TW Conv) Heart disease Other Family history of cardiac disorder - Relation: Grandparent (Added by TW Conv) No Known Problems Sister No Known Problems Son Relation Name Status Comments Brother 1 Brother 2 Daughter Father Mother Other Sister Son Social History Tobacco Use Types Packs/Day Years Used Date Smoking Tobacco: Former Cigarettes Q uit: 1989 Smokeless Tobacco: Never Tobacco Cessation:Counseling Given: Not [...] on file Legal Sex Female 8:49 PM 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 Gender Identity Not on file Sexual Orientation Not on file Obstetrics History Last Filed Vital Signs Vital Sign Reading Time Taken Comments Blood Pressure 128/79 03/22/2024 2:28 PM CDT Pulse 80 03/22/2024 2:28 PM CDT Temperature 36.3 C (97.4 F) 03/22/2024 2:28 PM CDT Respiratory Rate 16 03/22/2024 2:28 PM CDT Oxygen Saturation 100% 03/22/2024 2:28 PM CDT Inhaled Oxygen Concentration - - Weight 77.6 kg (171 lb) 03/22/2024 2:28 PM CDT Height 154.9 cm (5' 1 ) 03/22/2024 2:28 PM CDT Body Mass Index 32.31 03/22/2024 2:28 PM CDT Plan of Treatment Health Maintenance Due Date Last Done Comments Depression Screening 1945 Hepatitis C Screening 1945 Osteoporosis Screening-Bone Density Scan 1945 DTaP/Tdap/Td Vaccine (1 - Tdap) 1956 Hepatitis B Screening 12/10/1963 Pneumococcal vaccine 65+ (1 of 1 - PCV) 12/10/1995 Well Visit 65+ 2010 Covid-19 Vaccine (2023-2 5 season) 2024 03/16/2023, 02/19/2022, 09/23/2021, Additional history exists Influenza Vaccine (#1) 2024 , 03/13/2022, 02/11/2022, Additional history exists Fall Risk Assessment 03/07/2025 03/07/2024 Zoster Vaccine Completed 07/10/2023, 04/26/2023 Medical Devices Implanted Type Area Mind Reader Device Identifier Shelf Expiration Date Model / Serial / Lot Pacemaker Pacemaker Chest Wall Interstim-Pain Control Back [employer] Ghiatas 20ga 20cm 7cm Beaded Barbed Needle Breast Wire [id number] - [id number] Implanted:Qty: 1 on 03/07/2024 by Estuardo Singh MD at [facility] [employer] [id number] / / Insurance [facility] COMMERCIAL GENERIC [facility] MEDICARE [facility] MEDICARE [facility] MEDICARE [employer] OPTIONS PPO [facility] H[facility]/PPO Address: [address] [address] [place] [address] Advance Directives For more information, please contact: [phone] * Full Code (Latest Code Status on File) Date Activated Date Inactivated Comments 05/09/2018 10:28 PM 05/10/2018 2:25 PM Care Teams Process Camera Operator Relationship Specialty Start Date End Date Almas Brvao MD PCP - General Family Practice 08/26/23 Mark Eduardo MD [phone] [place] [address] Surgeon Colon and Rectal Surgery 08/26/23 Aft, Tete Juarez MD PhD [address] [place], [place] [id number] Surgeon Surgical Oncology 03/07/24
--- OUTSIDE RECORDS SUMMARY | 2024-09-07 13:19 | XMS_ITS | Referral Summary ---
Author Organization [address] Address [address] [place] [address] Care Team Providers Care Reset Merchandiser Name Role Phone Almas Bravo MD Primary Care Provider [phone] Mark Eduardo MD Unavailable [phone] Aft, Tete Juarez MD PhD Unavailable [phone] Allergies Active Allergy Reactions Criticality Noted Date Comments Cephalexin Rash Medium 05/05/2022 Doxycycline Rash Medium 10/09/2021 rash Ketamine Hallucinations Medium 05/02/2018 Penicillins Rash Medium Reaction: RASH, Medications zolpidem (AMBIEN) 10 mg tabletIndication s:Sleep-Onset Insomnia Take 1 tablet (10 mg total) by mouth nightly as needed for sleep 1 8 Active b complex vitamins capsuleIndicatio ns:Vitamin Deficiency Prevention Take 1 capsule by mouth early childhood specialist before breakfast Active ketoconazole (NIZORAL) 2 % shampoo Apply 1 Application topically as needed for dandruff 3 8 Active magnesium oxide 400 mg capsuleIndicatio ns:hypomagnesemi a,kidney Disease Take 400 mg by mouth 2 (two) times a day Active cholecalciferol (VITAMIN D-3) 4,000 unit capsuleIndicatio ns:Prevention of Vitamin D Deficiency Take 1 capsule (4,000 Units total) by mouth early childhood specialist before breakfast Active REPATHA SURECLICK 140 mg/mL [...] Deficiency Prevention Take 1 tablet by mouth early childhood specialist before breakfast Active losartan-hydroCH LOROthiazide (HYZAAR) 50-12.5 [...] 4 tablets (100 mg total) by mouth early childhood specialist before breakfast Active omalizumab (Xolair) 150 mg/mL auto-injectorInd ications:Chronic Idiopathic Urticaria,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 Inject 1 mL under the skin every 30 (thirty) days Active cycloSPORINE (RESTASIS) 0.05 % ophthalmic emulsion Administer 1 drop into both eyes as needed 4 Active levothyroxine (SYNTHROID) 75 mcg tabletIndication s:hypothyroidism Take 1 tablet (75 mcg total) by mouth early childhood specialist before breakfast 4 Active lidocaine (LIDODERM) 5 % Place 1 patch on the skin as needed for pain 4 Active potassium citrate ER (UROCIT-K) 10 mEq (1,080 mg) CR tabletIndication s:Urate Renal Calculi Take 1 tablet (10 mEq total) by mouth 2 (two) times a day 4 Active ELDERBERRY FRUIT ORALIndications: supplement Take 1 tablet by mouth early childhood specialist before breakfast Active HYDROcodone-acet aminophen (NORCO) 5-325 [...] 012 Epigastric pain 08/17/2011 Hernia, incisional 01/05/2011 Social History Tobacco Use Types Packs/Day Years [...] on file Legal 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 Gender Identity Not on file Sexual Orientation [...] 03/22/2024 2:28 PM CDT Plan of Treatment Not on file Medical Devices Implanted Type Area Supervisor [employer] Device Identifier Shelf Expiration Date Model / Serial / Lot Pacemaker Pacemaker Chest Wall Interstim-Pain Control Back [employer] Ghiatas 20ga 20cm 7cm Beaded Barbed Needle Breast Wire [id number] - [id number] Implanted:Qty: 1 on 03/07/2024 by Estuardo Singh MD at [facility] [employer] [id number] / / Insurance [facility] GENER[facility] AET MEDICARE MEDICARE MEDICARE [employer] PPO Advance Directives For more information, please contact: [phone] * Full Code (Latest Code Status on File) Date Activated Date Inactivated Comments 05/09/2018 10:28 PM 05/10/2018 2:25 PM Care Teams Reset Merchandiser Relationship Specialty Start Date End Date Almas Bravo MD PCP - General Family Practice 08/26/23 Mark Eduardo MD [phone] [place] [address] Surgeon Colon and Rectal Surgery 08/26/23 Aft, Tete Juarez MD PhD [address] [place] [address] Surgeon Surgical Oncology 03/07/24
--- OUTSIDE RECORDS SUMMARY | 2024-09-07 13:19 | XMS_ITS | Clinical Summary ---
Author Organization [facility] Address [address] [place] [address] Care Team Providers Care Honing Machine Operator Semiautomatic Name Role Phone Eligio Menezes DO Primary Care Provider [phone] Allergies Active Allergy Reactions Criticality Noted Date Comments Cephalexin Rash Low 05/05/2022 Penicillins Rash Low 05/05/2022 Lost hair fingernails and skin on bottom of feet and hands Medications HYDROcodone-acet aminophen (NORCO) 5-325 MG tabletIndication s:Acute Pain < 3 Day Supply Take 1 tablet by mouth every 6 (six) hours as needed. Indications : Acute Pain < 3 Day Supply 10 tablet 05/06/2022 Active Social History Tobacco Use Types Packs/Day Years Used Date Smoking Tobacco: Never Smokeless Tobacco: Never Tobacco Cessation:Counseling Given: Not Answered Alcohol Use Standard Drinks/Week Comments Not Currently 0 (1 standard drink = 0.6 oz pur e alcohol) Comments No Sex and Gender Information Value Date Recorded Sex Assigned at Not on file Legal Sex Female 9:28 PM [employer] Gender Identity Not on file Sexual Orientation Not on file Last Filed Vital Signs Vital Sign Reading Time Taken Comments Blood Pressure 173/100 05/06/2022 2:20 AM [employer] Pulse 68 05/06/2022 2:20 AM [employer] Temperature 37 C (98.6 F) 05/05/2022 10:03 PM [employer] Respiratory Rate 20 05/06/2022 2:20 AM [employer] Oxygen Saturation 100% 05/06/2022 2:20 AM [employer] Inhaled Oxygen Concentration - - Weight 76.9 kg (169 lb 8.5 oz) 05/05/2022 10:03 PM [employer] Height 161.3 cm (5' 3.5 ) 05/05/2022 10:03 PM CS T Body Mass Index 29.56 05/05/2022 10:03 PM [employer] Plan of Treatment Health Maintenance Due Date Last Done Comments Hepatitis C 12[birth year]10/1963 DTaP, Tdap and Td Vaccines (1 - Tdap) 1964 Zoster Vaccines (1 of 2) 12/10/1995 Annual Medicare Wellness Visit 2010 Dexa Scan (General) 2010 Pneumococcal Vaccine: 65+ Years (1 of 1 - PCV) 2010 RSV Immunization or 60+ Years (1 - 1-dose 75+ series) 2020 COVID-19 Vaccine ( season) 2024 02/19/2022, 09/23/2021, 04/22/2021, Additional history exists Influenza Adult (#1) 2024 03/13/2022, 03/10/20 18 Meningococcal B Vaccine Aged Out No l onger eligible based on patient's age to complete this topic Meningococcal Vaccine Aged Out No branden awilda eligible based on patient's age to complete this topic RSV Immunizations Under 20 Months Aged Out No longer eligible based on patient's age to complete this topic Insurance [facility] [place] [id number] Care Teams Honing Machine Operator Semiautomatic Relationship Specialty Start Date End Date Eligio Menezes DO [address] [address] PCP - General INTERNAL MEDICINE 05/05/22
== END 2024-09-07 12:32 | disposition home or self-care (01) ==
PROVIDERS: PCP Family Medicine; Visit Provider Urology
DX: N20.0 Calculus of kidney (principal)
CPT/HCPCS: 74018

== ENCOUNTER 2024-10-16 13:09 | Outpatient (CLI) | payer MEDICARE, SELFPAY ==
--- NOTE | ~2024-10-16 | MM_ITS ---
EXAMINATION: MM diagnostic yuri BI w russell HISTORY: Status post right lumpectomy in 02/2024. Status post radiation therapy and tamoxifen treatmen t for invasive carcinoma of the breasts. TECHNIQUE: Additional 3-D tomosynthesis images of the right breast were performed and synthetic 2-D i mages were generated. CAD analysis was submitted and interpreted. COMPARISON: Comparison to multiple prior studies sequentially, with oldest reviewed study dated 03/16. BREAST PARENCHYMAL COMPOSITION: Not dense: There are scattered areas of fibroglandular density. FINDINGS: The left breast is stable without evidence for malignancy. There is asymmetry in the upper outer quadrant of the right breast, consistent with previous lumpectomy and radiation therapy site. N o suspicious calcifications or architectural distortion. IMPRESSION: 1. Postoperative change upper outer quadrant of the right breast. No evidence for malignancy. 2. Routine yearly screening mammogram and regular clinical breast examination are recommended. BI-RADS Category 2: Benign finding(s). Reviewed, dictated and finalized at location A. IMPRESSION: 1. Postoperative change upper outer quadrant of the right breast. No evidence f or malignancy. 2. Routine yearly screening mammogram and regular clinical breast examination a re recommended. BI-RADS Category 2: Benign finding(s).
--- OUTSIDE RECORDS SUMMARY | 2024-10-16 13:42 | XMS_ITS | CONTINUITY OF CARE DOCUMENT ---
Author Name reena, reena Address Unknown Organization [facility] Address [address] [place] [address] Phone [phone] Care Team Providers Care Machine Set Up Operator Paper Goods Name Role Phone Brenna CELIS, Dickson Unavailable DORINA CELIS, KARYN Unavailable [phone] DORINA CELIS, KARYN Unavailable [phone] PROBLEMS Condition Status Date Provider Notes Examination, [...] Alexandru Colon MD T OO REMOTE TO [facility] VITAMIN D DEFICIENCY;on rx active Alexandru rosado MD Palpitations active Dickson Ceja MD Ventricular tachycardia active Richard Young SVT active Richard Young Sick sinus syndrome active Dickson Ceja MD Pacemaker: active ? Dickson Ceja MD (Status post) Atrial fib, paroxysmal active Dickson Ceja MD Shortness of breath (SOB) active Dickson villalba MD ENCOUNTERS Date Type Provider Location Encounter Diag nosis - In-person encounter Office Visit Dickson Ceja MD [facility] - In-person encounter Office Visit Dickson Ceja MD [facility] - In-person encounter Office Visit Dickson Ceja MD [facility] - In-person encounter Office Visit Dickson Ceja MD [place] - In-person encounter Office Visit Dickson Ceja MD [place] - In-person encounter Office Visit Dickson Ceja MD [place] - In-person encounter Office Visit Dickson Ceja MD [facility] Shortness of breath (SOB) - In-person encounter Office Visit Dickson Ceja MD [facility] - In-person encounter Office Visit Dickson Ceja MD [place] - In-person encounter Office Visit Dickson Ceja MD [place] - In-person encounter Office Visit Dickson Ceja MD [facility] - In-person encounter Office Visit Dickson Ceja MD [facility] Atrial fib, paroxysmal - In-person encounter Office Visit Martha Palmer MD [facility] - In-person encounter Office Visit Dickson Ceja MD [facility] Pacemaker: - In-person encounter Office Visit Dickson Ceja MD [facility] Office Sick sinus syndrome - In-person encounter Office Visit Tg Noel MD [facility] Ventricular tachycardiaSVT - In-person encounter Office Visit Dickson Ceja MD [facility] Palpitations - In-person encounter Office Visit Alexandru Colon MD [place] SyncopeCORONARY ARTERY DISEASE, FAMILY HXCADCHEST PAIN-03/23 CATH NO FLOW LIMITING LESION EF 60Family History Coronary Heart Disease male < 55:Family History of Sudden Cardiac :Family History Coronary Heart Disease male < 55:Family History of Sudden Cardiac :FAMILY HISTORY OF HEART DISEASETobacco use, quitVITAMIN D DEFICIENCY;on rx - In-person encounter Office Visit Dickson Ceja MD [facility] Fluid retention - In-person encounter Office Visit Dickson Ceja MD [place] - In-person encounter Office Visit Dickson Ceja MD [facility] - In-person encounter Office Visit Dickson Ceja MD [place] - In-person encounter Office Visit Dickson Au Office - In-person encounter Office Visit Dickson Ceja MD [place] - In-person encounter Office Visit Dickson Ceja MD [place] - In-person encounter Office Visit Dickson Ceja MD [place] ABDOMINAL PAIN-05/24 ABD US NEGHTN ESSENTIAL-05/24 DIXIE DUP NEG - In-person encounter Office Visit Dickson Ceja MD [facility] - In-person encounter Office Visit Dickson Ceja MD [facility] CHEST PAIN-03/23 CATH NO FLOW LIMITING LESION EF 60 VITAL SIGNS Date Observation Value Provider Body Mass Index (Ratio) 29.01 kg/m2 Quintin Ceja MD blood pressure, cuff size regular Ke [facility]el [facility] blood [facility], diastolic 80 mm[Hg] Rogelio rri [facility] blood pressure, systolic 146 mm[Hg] Abdi [facility] oxygen saturation, oximetry 98 % Dorothy Quiroz respiratory rate E&M 12 /min Dorothy [facility] pulse rate 70 /min Dorothy Moreno [facility] weight E&M 169 [lb_av] Dorothy Moreno [facility] height E&M 64 [in_i] Dorothy Moreno [facility] Body Mass Index (Ratio) 28.83 kg/m2 Quintin Ceja MD blood pressure, cuff [...] mason Rhodes blood pressure, systolic 138 mm[Hg] [facility] grant Rhodes pulse rate 72 /min Omaira [...] Dick Willoughby pulse rate 77 /min Nhi khan Body Mass Index (Ratio) 31.58 kg/m2 Gasper [...] Ai Terrell blood pressure, systolic 130 mm[Hg] [facility] freddy Terrell oxygen saturation, oximetry 97 % [...] Barakat blood pressure, diastolic 80 mm[Hg] Cr hortensai Barakat blood pressure, systolic 130 mm[Hg] Cry [...] MD blood pressure, diastolic 90 mm[Hg] [facility], systolic 140 mm[Hg] Steffanie cerda [place] oxygen saturation, oximetry 93 % [facility] E&M 16 /min Carlota Flanagan pulse rate 67 /min [facility] Flanagan weight E&M 186 [lb_av] Carlota Flanagan height E&M 64 [in_i] Carlota Flanagan Body Mass Index (Ratio) 31.92 kg/m2 Quintin Ceja MD blood pressure, diastolic 78 mm[Hg] Gilson Bhatt blood pressure, systolic 148 mm[Hg] Maddie Bhatt oxygen saturation, oximetry 98 % Radha Bhatt respiratory rate E&M 18 /min Olu Bhatt pulse rate 64 /min Radha Butt payam weight E&M 186 [lb_av] Radha Butt [facility] height E&M 64 [in_i] Radha Butt [facility] Body Mass Index (Ratio) 32.44 kg/m2 Quintin Ceja MD blood pressure, diastolic 80 mm[Hg] Louis lleen Flanagan blood pressure, systolic 130 mm[Hg] Steffanie ropern Flanagan oxygen saturation, oximetry 98 % [facility] rate E&M 16 /min Carlota Flanagan pulse rate 57 /min Carlota Flanagan weight E&M 189 [lb_av] [facility] Flanagan height E&M 64 [in_i] Carlota Flanagan [...] Olu Holdenenson pulse rate 73 /min Radha Butt nson weight E&M 187.2 [lb_av] Radha hesteron [...] rate 67 /min Carlota Flanagan weight E&M 193 [lb_av] Manor Flanagan height E&M 64 [in_i] [facility] Flanagan Body Mass Index (Ratio) 32.78 kg/m2 [...] Je ssica N Rajinder blood pressure, diastolic 60 mm[Hg] Je ssica [...] castillo Marti blood pressure, diastolic 84 mm[Hg] Nh eri Marti blood pressure, systolic 131 mm[Hg] [...] LinkLogic 0-149 cholesterol, serum 177 mg/dL [facility] 136-902 2138/02 /03 calcium, serum 8.6 mg/dL [facility] 8.7-10.3 Low carbon dioxide, venous blood 24 mmol/L [facility] 20-29 chloride, serum 108 mmol/L [facility] 96-106 High potassium, serum 4.2 mmol/L [facility] 3.5-5.2 sodium, serum 143 mmol/L [facility] 882-083 9620/02 /03 urea nitrogen/creatinine ratio, serum 15 LinkLogic [...] Not Estab. platelet count 288 X10E3/UL LinkLog 061-007 6313/02 /03 red blood cell distribution width 13.3 [...] pg/mL LinkLogic 232-1245 ferritin, serum 590 ng/[facility] High free thyroxine index 4.7 LinkLog[facility] 1.2-4.9 triiodothyronine resin uptake 34 % Link[facility]ic 24-39 thyroxine, serum, total 13.8 ug/dL LinkLog 4.5-12.0 High iron saturation percent, serum 17 % [facility] 15-55 iron, serum 45 ug/dL [facility] 27-139 iron binding capacity, unsaturated 223 ug/dL LinkLog 805-655 2848/03 /12 iron binding capacity, total 268 ug/dL LinkLog 025-805 9994/03 /12 lipoprotein, beta, serum, point, quantitative, calculated 72 mg/dL LinkLog 0-99 HDL cholesterol, serum 99 mg/dL [facility]ic >39 triglyceride, serum, random 86 mg/dL [facility] 0-149 cholesterol, serum 186 mg/dL [facility] 680-228 4219/03 /12 basophil count, absolute 0.1 x10E3/uL LinkLogic [...] Not Estab. platelet count 301 X10E3/UL [facility] 670-010 9022/03 /12 red blood cell distribution width 12.8 [...] Not Estab. platelet count 231 X10E3/UL [facility] 049-692 6035/10 /23 red blood cell distribution width 13.7 [...] iron binding capacity, unsaturated 157 ug/dL [facility] 148-687 5432/09 /11 iron binding capacity, total 238 ug/dL [...] Not Estab. platelet count 266 X10E3/UL [facility] 931-501 7178/09 /11 red blood cell distribution width 13.2 [...] LinkLogic 0-149 cholesterol, serum 157 mg/dL [facility] 673-218 6423/07 /31 calcium, serum 8.9 mg/dL [facility] 8.7-10.3 carbon dioxide, venous blood 25 mmol/L [facility] 20-29 chloride, serum 106 mmol/L [facility] 96-106 potassium, serum 4.4 mmol/L [facility] 3.5-5.2 sodium, serum 143 mmol/L [facility] 696-692 6876/07 /31 urea nitrogen/creatinine ratio, serum 12 LinkLogic [...] Not Estab. platelet count 253 X10E3/UL [facility] 039-624 3820/07 /31 red blood cell distribution width 13.7 [...] iron binding capacity, unsaturated 135 ug/dL [facility] 515-805 7796/05 /29 iron binding capacity, total 219 ug/dL [...] Not Estab. platelet count 249 X10E3/UL [facility] 796-030 9254/05 /29 red blood cell distribution width 15.0 [...] iron binding capacity, unsaturated 153 ug/dL [facility] 259-146 4512/03 /14 iron binding capacity, total 235 ug/dL [...] Not Estab. platelet count 253 X10E3/UL [facility] 909-185 8618/03 /14 red blood cell distribution width 16.8 [...] LinkLogic 3.5-5.2 sodium, serum 142 mmol/L [facility] 343-984 2738/03 /14 urea nitrogen/creatinine ratio, serum 15 LinkLogic [...] iron binding capacity, unsaturated 215 ug/dL [facility] 073-874 0788/01 /13 iron binding capacity, total 251 ug/dL [facility] 781-630 8056/01 /12 bacteria, urine microscopy None seen LinkLogic [...] Not Estab. platelet count 350 X10E3/UL LinkLogic 691-133 0306/01 /12 red blood cell distribution width 13.8 [...] Ronda Normal prothrombin time (patient) 16.5 s Venecai Ronda coagulation managed by Ryder Donald RN [...] LinkLogic 3.5-5.2 sodium, serum 143 mmol/L [facility] 837-425 9916/10 /13 urea nitrogen/creatinine ratio, serum 17 LinkLogic [...] Not Estab. platelet count 271 X10E3/UL [facility]ic 383-592 7308/10 /13 red blood cell distribution width 14.5 [...] iron binding capacity, unsaturated 199 ug/dL [facility] 947-687 1074/09 /13 iron binding capacity, total 277 ug/dL [facility] 901-635 0917/09 /13 alanine aminotransferase (SGPT), serum 12 1/L [...] LinkLogic 3.5-5.2 sodium, serum 143 mmol/L [facility] 767-328 2149/09 /13 urea nitrogen/creatinine ratio, serum 18 LinkLogic [...] Not Estab. platelet count 281 X10E3/UL [facility] 636-387 6168/09 /13 red blood cell distribution width 16.8 [...] iron binding capacity, unsaturated 171 ug/dL [facility]ic 089-619 0224/07 /31 iron binding capacity, total 248 ug/dL [...] Not Estab. platelet count 298 X10E3/UL [facility] 295-853 2802/07 /31 red blood cell distribution width 19.6 [...] 1.009 LinkLogic 1.005-1.030 anion gap, serum 9.2 [facility] estimated glomerular filtration rate >60 [facility] calcium, serum 9.1 mg/dL [facility] Vijay blood glucose, fasting 136 mg/dL [facility] creatinine, serum 0.86 mg/dL [facility] Vijay urea nitrogen, blood 14.5 mg/dL [facility] Vijay carbon dioxide, serum, total 28 mmol/L [facility] chloride, serum 108 mmol/L [facility] V[facility]ay potassium, serum 4.2 mmol/L sodium, serum [...] 5.2 % leukocyte count, blood 7.8 10*3/mm3 [facility] PTT patient 26.7 s prothrombin time (patient) 9.9 s [facility] international normalized ratio (INR) 1.0 [facility] Vijay anion gap, serum 8.2 estimated glomerular filtration rate >60 [facility] calcium, serum 8.6 mg/dL [facility] blood glucose, fasting 82 mg/dL [facility] creatinine, serum 0.85 mg/dL [facility] urea nitrogen, blood 14.2 mg/dL [facility] carbon dioxide, serum, total 29 mmol/L chloride, serum 112 mmol/L potassium, serum 4.2 mmol/L sodium, serum 145 mmol/L [facility] platelet count 299 10*3/uL [facility] red blood cell distribution width 14.1 % Lyudmila Linares mean corpuscular hemoglobin concentration, RBC 31.4 g/dL Lyudmial Linares mean corpuscular hemoglobin, RBC 27.3 pg Lyudmila Linares mean corpuscular volume, RBC 87.2 fL Lyudmila Linares hematocrit, blood 35.4 % Lyudmila Linares hemoglobin, blood 11.1 g/dL Lyudmila Linares erythrocyte (RBC) count 4.06 10*6/mm3 Lyudmila Linares monocytes as percent of blood leukocytes 11.3 % Lyudmila Linares lymphocytes as percent of blood leukocytes 29.0 % Lyudmila Linares leukocyte count, blood 4.2 10*3/mm3 Lyudmila Linares HISTORY OF MEDICATION USE Medication Status Instructions Dates Provider Indications Com ments potassium citrate 10 mEq (1,080 mg) tablet extended release active take 1 pill twice a day Dorothy Ahumada sertraline 100 mg tablet active take 1 pill a day Dorothy Ahumada Repatha SureClick 140 mg/mL pen injector active INJECT 1 SYRINGE SUBCUTANEOUSLY EVERY TWO WEEKS Cori Ventimiglia DYE BLENDER Repatha SureClick 140 mg/mL pen injector completed INJECT 1 PEN SUBCUTANEOUSLY EVERY 2 WEEKS - Cori Ventimiglia DYE BLENDER losartan-hydrochl orothiazide 50-12.5 mg tablet active Take 1 tablet by mouth once a day Cori Ventimiglia DYE BLENDER Repatha SureClick 140 mg/mL pen injector completed [...] active tablet by mouth once a day Nasrin Terrell Eliquis 5 mg tablet completed TAKE 1 TABLET BY MOUTH TWICE DAILY - Dorothy Ahumada Eliquis 5 mg tablet completed one tablet twice daily - Dickson Ceja MD losartan-hydrochl orothiazide 50-12.5 mg tablet completed Take 1 tablet by mouth once a day - KarenBanner Karsten PA Specialist CEPHALEXIN 500 MG ORAL [...] active Take 1 capsule once a day Jesisca Raymond MEDROL 4 MG ORAL TABLET THERAPY [...] 1 tablet once a day Cori Yungmiglmalu DYE BLENDER COZAAR 50 MG ORAL TABLET completed ONE [...] one daily - Carlota Flanagan NEOMYCIN-POLYMYXI N-DEXAMETH 3.5-11934-2.1 OPHTHALMIC SUSPENSION completed Apply to eyelids daily [...] history of marijuana use no Cori Ventimiglia [facility] drug use no Cori Ventimig maria fernanda [facility] alcohol use no Cori Ventimig maria fernanda [facility] passive cigarette sm mario exposure no Cori Ventimiglia [facility] smoking/tobacco cessation, patient education and counseling contraindicated Cori Ventimiglia [facility] smoking, year quit 2002 Cori Ve ntimiglia [facility] number of years as a smoker 10 years or more Cori Ventimiglia [facility] smoking history, tot al pack/year 7300 Cori Ventimiglia [facility] cigarette use yes Cori Ventimi glia [facility] smoking status Former smoker Cori Venti miglia [facility] social history revie wed E&M reviewed - [...] Dickson Ceja MD seatbelt usage 100 % [facility] exercise type walks, rides bike [facility] physical exercise, frequency, days per week 3 /wk [facility] alcohol counseling no [facility] In the past 3 months , have you been waking up wanting to use drugs? (CAGE substance use question #4) N [facility] In the past 3 months , have you felt guilty or bad about using drugs? (CAGE substance use question #3) N [facility] In the past 3 months , has anyone annoyed you by telling you to cut down or stop using drugs? (CAGE substance use question #2) N [facility] In the past 3 months , have you felt you should cut down or stop using drugs?(CAGE substance use question #1) N [facility] alcohol use, average drinks per day social basis only [facility] alcohol use, type at holidays [facility] alcohol use no [facility] caffeine use, averag e drinks per day 1 /d [facility] drug use none [facility] passive cigarette sm mario exposure no [facility] smoking status Former smoker [facility] social history E&M Marital Statu s: L ras with family/friends E thnicity: Smoking History: Chava su is a former smoker. Martha Palmer MD social history revie wed E&M reviewed - no changes required Martha Palmer MD number of grandchildren Martha Palmer MD [facility] seatbelt usage 100 % [facility] exercise type walks, rides bike [facility] physical exercise, frequency, days per week 3 /wk [facility] alcohol counseling no [facility] In the past 3 months , have you been waking up wanting to use drugs? (CAGE substance use question #4) N [facility] In the past 3 months , have you felt guilty or bad about using drugs? (CAGE substance use question #3) N [facility] In the past 3 months , has anyone annoyed you by telling you to cut down or stop using drugs? (CAGE substance use question #2) N [facility] In the past 3 months , have you felt you should cut down or stop using drugs?(CAGE substance use question #1) N [facility] alcohol use, average drinks per day social basis only [facility] alcohol use, type at holidays [facility] alcohol use no [facility] caffeine use, averag e drinks per day 1 /d [facility] drug use none [facility] passive cigarette sm mario exposure no [facility] smoking status Former smoker [facility] social history E&M Marital Statu s: L [...] former smoker. Dickson Ceja MD social history [facility] E&M reviewed - no changes required Dickson Ceja MD number of grandchildren Dickson Flanagan seatbelt usage 100 % [facility] exercise type walks, rides bike [facility] physical exercise, frequency, days per week 3 /wk Carlota Flanagan alcohol counseling no [facility] In the past 3 months , have you been waking up wanting to use drugs? (CAGE substance use question #4) N [facility] In the past 3 months , have you felt guilty or bad about using drugs? (CAGE substance use question #3) N [facility] In the past 3 months , has anyone annoyed you by telling you to cut down or stop using drugs? (CAGE substance use question #2) N [facility] In the past 3 months , have you felt you should cut down or stop using drugs?(CAGE substance use question #1) N [facility] alcohol use, average drinks per day social basis only [facility] alcohol use, type at holidays [facility] alcohol use no [facility] caffeine use, averag e drinks per day 1 /d [facility] drug use none [facility] passive cigarette sm mario exposure no [facility] smoking status Former smoker [facility] number of grandchildren gT Young social history revie wed E&M reviewed - no changes required Richard Young social history E&M Marital Statu s: L ras with family/friends E thnicity: Smoking History: Chava su is a former smoker. Richard Young seatbelt usage 100 % [facility] exercise type walks, rides bike [facility] s physical exercise, frequency, days per week 3 /wk Venecia Ronda alcohol counseling no Venecia Robert s In the past 3 months , have you been waking up wanting to use drugs? (CAGE substance use question #4) N [facility] In the past 3 months , [...] using drugs?(CAGE substance use question #1) N [facility] alcohol use, average drinks per day social basis only [facility] alcohol use, type at holidays [facility] alcohol use no [facility] caffeine use, averag e drinks per day 1 /d [facility] drug use none [facility] passive cigarette sm mario exposure no [facility] smoking status Former smoker [facility] social history E&M Marital Statu s: L ras with family/friends E thnicity: Smoking History: Chava su is a former smoker. Dickson Ceja MD social history [facility] E&M reviewed - no changes required [...] smoker. Alexandru Colon MD social history [facility] E&M reviewed - no changes required Alexandru Colon MD number of grandchildren Alexandru Colon MD [facility] seatbelt usage 100 % [facility] exercise type walks, rides bike [facility] physical exercise, frequency, days per week 3 /wk [facility] alcohol counseling no [facility] In the past 3 months , have you been waking up wanting to use drugs? (CAGE substance use question #4) N [facility] In the past 3 months , have you felt guilty or bad about using drugs? (CAGE substance use question #3) N [facility] In the past 3 months , has anyone annoyed you by telling you to cut down or stop using drugs? (CAGE substance use question #2) N [facility] In the past 3 months , have you felt you should cut down or stop using drugs?(CAGE substance use question #1) N [facility] alcohol use, average drinks per day social basis only [facility] alcohol use, type at holidays [facility] alcohol use no [facility] Flanagan caffeine use, averag e drinks per day 1 /d Carlota drug use none [facility] passive cigarette sm mario exposure no [facility] smoking status Former smoker [facility] social history E&M Marital Statu s: L ras with family/friends E thnicity: Smoking History: Chvaa su is a former smoker. Dickson Ceja MD social history revie wed E&M reviewed - no changes required Dickson Ceja MD seatbelt usage 100 % [facility] exercise type walks, rides bike [facility] physical exercise, frequency, days per week 3 /wk [facility] alcohol counseling no [facility] In the past 3 months , have you been waking up wanting to use drugs? (CAGE substance use question #4) N [facility] In the past 3 months , have you felt guilty or bad about using drugs? (CAGE substance use question #3) N [facility] In the past 3 months , has anyone annoyed you by telling you to cut down or stop using drugs? (CAGE substance use question #2) N [facility] In the past 3 months , have you felt you should cut down or stop using drugs?(CAGE substance use question #1) N [facility] alcohol use, average drinks per day social basis only [facility] alcohol use, type at holidays [facility] alcohol use no [facility] caffeine use, averag e drinks per day 1 /d [facility] drug use none [facility] passive cigarette sm mario exposure no [facility] smoking status Former smoker [facility] social history E&M Marital Statu s: L ras with family/friends E thnicity: Smoking History: Chava su is a former smoker. Dickson Ceja MD social history revie wed E&M reviewed - no changes required Dickson Ceja MD seatbelt usage 100 % Radha Pickard exercise type walks, rides bike Rdaha Bhatt physical exercise, frequency, days per week [...] RN FAMILY HISTORY Family Member Condition Father [place] male <55 Mother Family History of Co [...] Policy type / Coverage type Doe red democrat ID [employer] MEDICARE KATE PPO Medicare [id number] Fashion To Figure [id number] ADVANCE DIRECTIVES Name Date DISCUSSED - NO DECISION MADE TREATMENT PLAN Date Name Performer [id number], Dickson Ramada n [id number],S, Dickson Ramada n [id number],S, Dickson Ramada n [id number],S, Dickson Ramada n [id number],S, Dickson Ramada n [id number],S, Dickson Ramada n [id number],S, Dickson Ramada n [id number],S, Dickson Ramada n [id number],B, Dickson Ramada n [place] [id number],S, Dickson Ramada n [place] [id number],S, Dickson Ramada n [place] [id number],S, Dickson Ramada n [place] [id number],B, Dickson Ramada n [place] [id number],S, Dickson Ramada n UT [id number],S, Dickson Ramada n UT [id number],S, Dickson Ramada n UT [id number],S, Dickson Ramada n UT [id number],S, Dickson Ramada n [place] [id number],S, Dickson Ramada n [place] [id number],S, Dickson Ramada n [place] [id number],S, Dickson solomon MD Cardiology Dickson Ceja MD [...] Inject 1 syringe subcutaneously every two weeks [facility] Cardiology:will upda te echo and pBNP given SOB c onsider Jardiance if symptoms persist H er updated medication list for this problem includes: Losartan-hydrochlorothiazide 50-12.5 Mg Tablet (Losartan-hydrochlorothiazide) ..... Take 1 tablet by mouth once a day [facility] Cardiology:normal de vice function 8 0% RA pacing [facility] Cardiology:BP lower today h ave asked her to monitor and record at home w ill review and next visit and determine need to adjust therapy H er updated medication list for this problem includes: Losartan-hydrochlorothiazide 50-12.5 Mg Tablet (Losartan-hydrochlorothiazide) ..... Take 1 tablet by mouth once a day [facility] Cardiology:chronic m ore frequent W ill update echo w ill do labs to r/o underlying source w ill return in one month or sooner if needed. H er updated medication list for this problem includes: Losartan-hydrochlorothiazide 50-12.5 Mg Tablet (Losartan-hydrochlorothiazide) ..... Take 1 tablet by mouth once a day [facility]itom[facility] Cardiology:last neda ce check showed HVR episodes w ill check labs to r/o underlying source c onsider BB if recurrent P PM in place [facility]itom[facility] Cardiology Dickson Ceja MD Cardiology Dickson Ceja [...] up:See above. Orders: 9 9215 HIGH Complex ([id number]) S chedule Followup (*) E P Study [...] vs SVT. Will schedule EP study at [facility] on 04/16/18. Warfarin 2.5mg to be started 7 days prior to ablation. Orders: 9 9215 HIGH Complex (CPT-[id number]) S chedule Followup (*) E P Study [...] HDL: 87 (01/12/2018) Alexandru Colon MD Cardiology Alexandru Colon MD Cardiology follow up:Recheck lip id [...] Dickson Ceja MD Cardiology Follow up Dickson matamoros MD [...] motion and systolic function. EF 60% - [facility] (03/18/2010) Dickson Ceja MD Follow up: B [...] motion and systolic function. EF 60% - [facility] (03/18/2010) C arotid Doppler/Duplex: Normal O (02/24/2010) [...] motion and systolic function. EF 60% - [facility] (03/18/2010) C arotid Doppler/Duplex: Normal [facility] (02/24/2010) [...] motion and systolic function. EF 60% - [facility] (03/18/2010) Dickson Ceja MD Follow up: B [...] motion and systolic function. EF 60% - [facility] (03/18/2010) Dickson Ceja MD routine: B P [...] motion and systolic function. EF 60% - [facility] (03/18/2010) C arotid Doppler/Duplex: Normal [facility] (02/24/2010) H gb: 12.0 (03/18/2010) HCT: 38.0 [...] motion and systolic function. EF 60% - [facility] (03/18/2010) C arotid Doppler/Duplex: Normal [facility] (02/24/2010) H gb: 12.0 (03/18/2010) HCT: 38.0 [...] motion and systolic function. EF 60% - [facility] (03/18/2010) Dickson Ceja MD routine: H er [...] motion and systolic function. EF 60% - [facility] (03/18/2010) Dickson Ceja MD follow up Dickson [...] There is trace physiologic mitral valve regurgitation. [facility] (02/24/2010) C ardiac Cath: Mild to moderate atherosclerotic disease of the epicardial coronaries with no flow limiting lesions noted. Normal left ventricular wall motion and systolic function. EF 60% - [facility] (03/18/2010) Dickson Ceja MD Follow-up, c/o eleva antonio bp : O rders: S tress Test - Adenosine (30044) BP today: 118/68 Prior BP: 151/91 (07/07/2010) [...] motion and systolic function. EF 60% - [facility] (03/18/2010) C arotid Doppler/Duplex: Normal [facility] (02/24/2010) H gb: 12.0 (03/18/2010) HCT: 38.0 [...] There is trace physiologic mitral valve regurgitation. [facility] (02/24/2010) C ardiac Cath: Mild to moderate atherosclerotic disease of the epicardial coronaries with no flow limiting lesions noted. Normal left ventricular wall motion and systolic function. EF 60% - [facility] (03/18/2010) Dickson Ceja MD Follow-up, c/o mecca alvarez bp : H er updated medication list for this problem includes: Losartan Potassium-hctz 50-12.5 Mg Tabs (Losartan potassium-hctz) ..... 1 tab daily Orders: R enal Artery Duplex ([id number]) BP today: 118/68 P rior BP: 151/91 [...] motion and systolic function. EF 60% - [facility] (03/18/2010) Dickson Ceja MD follow up: B [...] motion and systolic function. EF 60% - [facility] (03/18/2010) C arotid Doppler/Duplex: Normal [facility] (02/24/2010) H gb: 12.0 (03/18/2010) HCT: 38.0 [...] motion and systolic function. EF 60% - [facility] (03/18/2010) C arotid Doppler/Duplex: Normal [facility] (02/24/2010) H gb: 12.0 (03/18/2010) HCT: 38.0 [...] motion and systolic function. EF 60% - [facility] (03/18/2010) Dickson Ceja MD test yrgbkre-fj-odnq f/u: B P today: 149/97 Prior BP: / () Dickson Ceja MD test rrdqgzd-vj-sgzu f/u: B P today: 149/97 Dickson Ceja MD test gqrjxpk-oe-ivza f/u: B P today: 149/97 Prior BP: [...] regurgitation. O (02/24/2010) Dickson Ceja MD test dmdqcdv-ne-pdpk f/u: B P today: 149/97 Prior BP: [...] ne Stress Regadenoson Complete Echo DLCO - 90960 FRC - 81975 FVC - 81306 CBC (INCLUDES DIFF/P LT) FERRITIN IRON AND [...] FERRITIN CBC (INCLUDES DIFF/P LT) DLCO - 52840 FRC - 52925 FVC - 51139 CT, Coronary Calcium Score LIPID PANEL Vitamin [...] d FVC / MVV with bronchodilator - 50891 Dickson Ceja MD completed FRC - 77365 Dickson Ceja MD complet ed SpO2 w/o 6min walk/titration Dickson Ceja MD completed SVC - 61104 Dickson Ceja MD complet ed DLCO - 47362 Dickson Ceja MD comple antonio EKG Dickson [...] Dickson Ceja MD INTERROGATION REMOTE </90 D TRAFFIC SIGNAL SUPERVISOR MAINTENANCE REVIEW completed Pacemaker Interrogation, Remote (Prof) Dickson Ceja MD INTERROGATION EVAL REMOTE </90 D 1/2/GANG HEAD SAW OPERATOR LEAD P completed ICM Interrogation, Remote (Prof) [...] garcia MD completed FVC / MVV - 75680 Alexandru Colon MD c ompleted FRC - 76452 Alexandru Colon MD complet ed SpO2 w/o 6min walk/titration Alexandru Colon MD completed DLCO - 01636 Alexandru Colon MD comple antonio Regadenoson, 4 [...] 1 hour Dickson Ceja MD completed SNOMED-CT: [id number] Current Medications Documented Dickson Ceja MD completed Stress EKG Amira Diamond MD completed Regadenoson, 4 units Dickson Ceja MD completed Cardiolite, 2 units Dickson Ceja MD completed SPECT Images Amira Diamond MD complet ed SNOMED-CT: [id number] Current Medications Documented Dickson Ceja MD completed EKG KEITH LUCIO MD completed EKG Dickson Ceja MD complete d EKG Dickson Ceja MD complete d
--- OUTSIDE RECORDS SUMMARY | 2024-10-16 13:42 | XMS_ITS | Clinical Summary ---
Author Organization [address] Address [address] [place] [id number] Care Team Providers Care Accounts Payable Coordinator Name Role Phone Almas Bravo MD Primary Care Provider [phone] Mark Eduardo MD Unavailable [phone] Aft, Tete Juarez MD PhD Unavailable [phone] Allergies Active Allergy Reactions Criticality Noted Date Comments Cephalexin Rash Medium 05/05/2022 Doxycycline Rash Medium 10/09/2021 rash Ketamine Hallucinations Medium 05/02/2018 Penicillins Rash Medium Reaction: RASH, Medications zolpidem (AMBIEN) 10 mg tabletIndication s:Sleep-Onset Insomnia Take 1 tablet (10 mg total) by mouth nightly as needed for sleep 1 8 Active b complex vitamins capsuleIndicatio ns:Vitamin Deficiency Prevention Take 1 capsule by mouth c java developer before breakfast Active ketoconazole (NIZORAL) 2 % shampoo Apply 1 Application topically as needed for dandruff 3 8 Active magnesium oxide 400 mg capsuleIndicatio ns:hypomagnesemi a,kidney Disease Take 400 mg by mouth 2 (two) times a day Active cholecalciferol (VITAMIN D-3) 4,000 unit capsuleIndicatio ns:Prevention of Vitamin D Deficiency Take 1 capsule (4,000 Units total) by mouth c java developer before breakfast Active REPATHA SURECLICK 140 mg/mL [...] Deficiency Prevention Take 1 tablet by mouth c java developer before breakfast Active losartan-hydroCH LOROthiazide (HYZAAR) 50-12.5 [...] 4 tablets (100 mg total) by mouth c java developer before breakfast Active omalizumab (Xolair) 150 mg/mL auto-injectorInd ications:Chronic Idiopathic Urticaria,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 Inject 1 mL under the skin every 30 (thirty) days Active cycloSPORINE (RESTASIS) 0.05 % ophthalmic emulsion Administer 1 drop into both eyes as needed 4 Active levothyroxine (SYNTHROID) 75 mcg tabletIndication s:hypothyroidism Take 1 tablet (75 mcg total) by mouth c java developer before breakfast 4 Active lidocaine (LIDODERM) 5 % Place 1 patch on the skin as needed for pain 4 Active potassium citrate ER (UROCIT-K) 10 mEq (1,080 mg) CR tabletIndication s:Urate Renal Calculi Take 1 tablet (10 mEq total) by mouth 2 (two) times a day 4 Active ELDERBERRY FRUIT ORALIndications: supplement Take 1 tablet by mouth c java developer before breakfast Active HYDROcodone-acet aminophen (NORCO) 5-325 [...] Active Problems Problem Noted Date Diagnosed Date Abnormal weight loss 09/21/2024 Calculus of kidney 09/21/2024 Carpal tunnel syndrome, bilateral upper limbs Contracture, left hand 09/21/2024 Gastro-esophageal reflux disease without esophag itis 09/21/2024 Hypothyroidism, unspecified 09/21/2024 Insomnia, unspecified 09/21/2024 Other abnormal and inconclus puenet findings on diagnostic imaging of breast 09/21/2024 Pain in left knee 09/21/2024 Pain in right knee 09/21/2024 Pain in right shoulder 09/21/2024 Urge incontinence 09/21/2024 Unspecified abdominal pain 09/21/2024 Chest pain, unspecified 09/21/2024 Pleurodynia 09/21/2024 Malignant neoplasm of right female breast 2023 Essential (primary) hypertension 10/09/2021 Stage 3a chronic kidney disease 10/09/2021 Shortness of breath 03/25/2021 Degeneration of lumbar intervertebral disc 02/09 Assessment [...] localized tenderness. Pain management may be helpful. Atrial fibrillation 08/15/2018 Malabsorption 07/20/2018 Presence of cardiac pacemaker 05/23/2018 Sick sinus syndrome 05/16/2018 Supraventricular tachycardia 04/15/2018 Ventricular tachycardia 04/15/2018 Palpitations 03/22/2018 Arthritis of right knee 03/03/2018 Assessment & [...] She is return the office as needed Chronic diastolic congestive heart failure 02/23 Vitamin D deficiency 02/22/2018 Fluid retention 01/11/2018 Iron deficiency anemia 12/14/2017 Acute urinary tract infection 12/05/2017 Rectal hemorrhage 02/17/2012 Anal fissure 12/23/2011 Chronic ulcerative proctitis 12/23/2011 Anal pain 11/10/2011 Rectal pain 11/10/2011 Disorder of muscle, ligament, and fascia 012 Epigastric pain 08/17/2011 Hernia, incisional 01/05/2011 Hyperlipidemia 03/05/2010 Syncope 06/14/1959 Chest pain 06/14/1959 Surgical History Surgery Date Site/Laterality Comments [facility] OPEN IMPLANTATION NARESH SACRAL NERVE 01/13/2024 - 02/12/2024 Install Sacral Nerve Neurostimulator By Incision - done 05/25/2001 (Added by TW Conv) GASTRIC BYPASS 06/14/1989 - 06/13/1990 x4-last 1989 HERNIA REPAIR 06/14/2011 - 06/13/2012 x6, last 2011 HYSTERECTOMY 06/14/1977 - 06/13/1978 partial KIDNEY STONE SURGERY 06/14/2020 - 06/13/2021 2015 OTHER SURGICAL HISTORY 06/14/2023 - 06/13/2024 interstem [...] on file 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 Gender Identity Not on file Sexual Orientation [...] Screening 12/10/1963 Pneumococcal vaccine 65+ (1 of 2 - PCV) 1964 Well Visit 65+ 2010 Covid-19 Vaccine (2023-2 5 season) 2024 03/16/2023, 02/19/2022, 09/23/2021, Additional history exists Influenza Vaccine (Season Ended) 2025 03/16/2023, 03/13/2022, 02/11/2022, Additional history exists Fall Risk Assessment 03/07/2025 03/07/2024 Zoster Vaccine Completed 07/10/2023, 04/26/2023 Medical Devices Implanted Type Area An Employee Sponsor Or Advocate And Device Identifier Shelf Expiration Date Model / Serial / Lot Pacemaker Pacemaker Chest Wall Interstim-Pain Control Back [place] Peripheral [employer] Ghiatas 20ga 20cm 7cm Beaded Barbed Needle Breast Wire [id number] - [id number] Implanted:Qty: 1 on 03/07/2024 by Estuardo Singh MD at [facility] Peripheral Vascular [id number] / / Insurance [facility] COMMERCIAL GENERIC AETNA MEDICARE AETNA MEDICARE AETNA MEDICARE [employer] OPTIONS PPO Advance Directives For more information, please contact: [phone] * Full Code (Latest Code Status on File) Date Activated Date Inactivated Comments 05/09/2018 10:28 PM 05/10/2018 2:25 PM Care Teams Accounts Payable Coordinator Relationship Specialty Start Date End Date Almas Bravo MD PCP - General Family Practice 08/26/23 Mark Eduardo MD [phone] [place] [address] Surgeon Colon and Rectal Surgery 08/26/23 Aft, Tete Juarez MD PhD [address] [place] [address] Surgeon Surgical Oncology 03/07/24
--- OUTSIDE RECORDS SUMMARY | 2024-10-16 13:42 | XMS_ITS | Encounter Summary ---
Author Organization [facility] Healthcare Address [address] [place] [address] Care Team Providers Care Perinatal Nurse Name Role Phone Unavailable Primary Care Provider Unavailabl e Reason for Visit * Diagnostic Imaging (Routine) - Pending Review Specialty Diagnoses / Procedures Referred By Contac t Referred To Contact Procedures Breast Imaging Screening Outside Reference Aft, Tete Juarez MD PhD [address] [place] [address] Phone: tel: fax: Referral ID Status Reason Start Date Expiration Date V isits Requested Visits Authorized [id number] Pending Review 02/15/2024 03/16/2025 1 1 Encounter Details Date Type Department Care Team (Late st Contact Info) Description 06/08/2017 Hospital Encounter [facility] [address] [place] [address] Social History Tobacco Use Types Packs/Day Years [...] on file 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 There will be no report generated by a [facility] Radiologist. Narrative [facility] - 02/15/2024 6:24 PM CDT EXAMINATION: Images For Reference Purposes Only us Tete Acevedo MD PhD IMG MAMMO PROCEDURES Final Result [facility] documented in this encounter Visit Diagnoses Not on filedocumented in this encounter
--- OUTSIDE RECORDS SUMMARY | 2024-10-16 13:42 | XMS_ITS | Referral Summary ---
Author Organization [address] Address [address] [place] [id number] Care Team Providers Care Hot Metal Mixer Operator Name Role Phone Almas Bravo MD Primary Care Provider [phone] Mark Eduardo MD Unavailable [phone] Aft, Tete Juarez MD PhD Unavailable [phone] Allergies Active Allergy Reactions Criticality Noted Date Comments Cephalexin Rash Medium 05/05/2022 Doxycycline Rash Medium 10/09/2021 rash Ketamine Hallucinations Medium 05/02/2018 Penicillins Rash Medium Reaction: RASH, Medications zolpidem (AMBIEN) 10 mg tabletIndication s:Sleep-Onset Insomnia Take 1 tablet (10 mg total) by mouth nightly as needed for sleep 1 8 Active b complex vitamins capsuleIndicatio ns:Vitamin Deficiency Prevention Take 1 capsule by mouth manager bridge before breakfast Active ketoconazole (NIZORAL) 2 % shampoo Apply 1 Application topically as needed for dandruff 3 8 Active magnesium oxide 400 mg capsuleIndicatio ns:hypomagnesemi a,kidney Disease Take 400 mg by mouth 2 (two) times a day Active cholecalciferol (VITAMIN D-3) 4,000 unit capsuleIndicatio ns:Prevention of Vitamin D Deficiency Take 1 capsule (4,000 Units total) by mouth manager bridge before breakfast Active REPATHA SURECLICK 140 mg/mL [...] Deficiency Prevention Take 1 tablet by mouth manager bridge before breakfast Active losartan-hydroCH LOROthiazide (HYZAAR) 50-12.5 [...] 4 tablets (100 mg total) by mouth manager bridge before breakfast Active omalizumab (Xolair) 150 mg/mL auto-injectorInd ications:Chronic Idiopathic Urticaria,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 Inject 1 mL under the skin every 30 (thirty) days Active cycloSPORINE (RESTASIS) 0.05 % ophthalmic emulsion Administer 1 drop into both eyes as needed 4 Active levothyroxine (SYNTHROID) 75 mcg tabletIndication s:hypothyroidism Take 1 tablet (75 mcg total) by mouth manager bridge before breakfast 4 Active lidocaine (LIDODERM) 5 % Place 1 patch on the skin as needed for pain 4 Active potassium citrate ER (UROCIT-K) 10 mEq (1,080 mg) CR tabletIndication s:Urate Renal Calculi Take 1 tablet (10 mEq total) by mouth 2 (two) times a day 4 Active ELDERBERRY FRUIT ORALIndications: supplement Take 1 tablet by mouth manager bridge before breakfast Active HYDROcodone-acet aminophen (NORCO) 5-325 [...] Insomnia, unspecified 09/21/2024 Other abnormal and inconclus puneet findings on diagnostic imaging of breast 09/21/2024 [...] Hyperlipidemia 03/05/2010 Syncope 06/14/1959 Chest pain 06/14/1959 Social History Tobacco Use Types Packs/Day Years [...] on file 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 Peripheral Vascular [id number] / / Insurance [employer] COMMERCIAL GENERIC AET MEDICARE [facility] MEDICARE [facility] MEDICARE [facility] OPTIONS PPO Advance Directives For more information, please contact: [phone] * Full Code (Latest Code Status on File) Date Activated Date Inactivated Comments 05/09/2018 10:28 PM 05/10/2018 2:25 PM Care Teams Hot Metal Mixer Operator Relationship Specialty Start Date End Date Almas Bravo MD PCP - General Family Practice 08/26/23 Mark Eduardo MD [phone] [place] [address] Surgeon Colon and Rectal Surgery 08/26/23 Aft, Tete Juarez MD PhD [address] [place] [address] Surgeon Surgical Oncology 03/07/24
--- OUTSIDE RECORDS SUMMARY | 2024-10-16 13:42 | XMS_ITS | Clinical Summary ---
Author Organization [facility] Address [address] [place] [phone] Phone Care Team Providers Care Dealer Accounts Investigator Name Role Phone Eligio Menezes DO Primary Care Provider Allergies Active Allergy Reactions Criticality Noted Date Comments Cephalexin Rash Low 05/05/2022 Doxycycline 10/09/2021 rash Ketamine Hallucinations Medium 05/02/2018 Penicillins Rash Low 07/15/2015 Reaction: RASH, Statins 10/04/2018 Other reaction(s): statins intolerant Medications amiodarone (PACERONE) 200 MG tablet amiodarone 200 mg tablet 8 Active apixaban (Eliquis) 5 MG tablet Eliquis 5 mg tablet 1 Active b complex vitamins capsule Take 1 capsule by mouth daily Active Cholecalcifero l 100 MCG (4000 UT) capsule Active Evolocumab (Repatha SureClick) 140 MG/ML solution auto-injector Repatha SureClick 140 mg/mL pen injector 9 Active cetirizine (ZyrTEC) 10 MG tablet Take by mouth 9 Active hydrOXYzine (ATARAX) 50 MG tablet Take by mouth 9 Active levothyroxine (SYNTHROID) 100 MCG tablet levothyroxine 100 mcg tablet 9 Active losartan-hydro CHLOROthiazide (HYZAAR) 50-12.5 MG per tablet Take by mouth Take 1/2 daily 0 Active zolpidem (Ambien) 10 MG tablet Ambien 10 mg tablet 9 Active Omalizumab 150 MG/ML solution prefilled syringe Inject [...] 03/05/2010 Hyperlipidemia 03/05/2010 Chest pain 06/13/1959 Immunizations Immunization Administration Dates Next Due Influenza TIV (IM) 03/13/2022 Family History Medical History Relation Comments Kidney disease Father Kidney disease Mother Relation Status Comments Father Mother Social History Tobacco Use Types Packs/Day Years Used Date Smoking Tobacco: Never Smokeless Tobacco: Never Tobacco Cessation:Counseling Given: Not Answered Alcohol Use Standard Drinks/Week Comments Not Currently 0 (1 standard drink = 0.6 oz pur e alcohol) Comments Unknown Sex and Gender Information Value Date Recorded Sex Assigned at Not on file Legal Sex Female 9:37 AM [facility] Gender Identity Not on file Sexual Orientation Not on file Last Filed Vital Signs Vital Sign Reading Time Taken Comments Blood Pressure 116/70 05/11/2022 10:14 AM SENIOR RESEARCH SCIENTIST Pulse 72 05/11/2022 10:14 AM SENIOR RESEARCH SCIENTIST Temperature 35.6 C (96 F) 05/11/2022 10:14 AM SENIOR RESEARCH SCIENTIST Respiratory Rate - - Oxygen Saturation - - Inhaled Oxygen Concentration - - Weight 77.1 kg (170 lb) 05/11/2022 10:14 AM SENIOR RESEARCH SCIENTIST Height 160 cm (5' 3 ) 05/11/2022 10:14 AM SENIOR RESEARCH SCIENTIST Body Mass Index 30.11 05/11/2022 10:14 AM SENIOR RESEARCH SCIENTIST Plan of Treatment Health Maintenance Due Date Last Done Comments Pneumococcal PPSV23/PCV13 65 + Years / High and Highest Risk (1 of 5 - PCV) 1964 Influenza Vaccine (Season Ended) 2025 03/13/20 22 Insurance [facility] MEDICARE ADVANTAGE Care Teams Dealer Accounts Investigator Relationship Specialty Start Date End Date Eligio Menezes DO [address] [place] [phone] PCP - General Internal Medicine 09/15/21
--- OUTSIDE RECORDS SUMMARY | 2024-10-16 13:42 | XMS_ITS | Clinical Summary ---
Author Organization [facility] Address [address] [place] [address] Care Team Providers Care Sales Assistant Institutional Sales Name Role Phone Almas Bravo MD Primary Care Provider [phone] Allergies Active Allergy Reactions Criticality Noted Date [...] Encounters Date Type Department Care Team Description 10/12/2024 Orders Only [facility] Oncology and Hematology - [place] [address] [place] [address] Danielito Telles MD 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, estrogen receptor positive, unspecified laterality, unspecified site of breast (CMS/HCC) (Primary Dx) 08/01/2024 External Device Data STL ABSTRACTION Provider, Abstract from Last 3 Months Family History Medical [...] on file Legal Sex Female 8:13 AM SPORTS DEVELOPMENT OFFICER Gender Identity Not on file Sexual Orientation Not on file Last Filed Vital Signs Vital Sign Reading Time Taken Comments Blood Pressure 167/88 06/27/2024 3:13 PM SPORTS DEVELOPMENT OFFICER Patient forgot to take medication for BP Pulse 81 06/27/2024 3:13 PM SPORTS DEVELOPMENT OFFICER Temperature 36.4 C (97.6 F) 06/27/2024 3:13 PM SPORTS DEVELOPMENT OFFICER Respiratory Rate 14 06/27/2024 3:13 PM SPORTS DEVELOPMENT OFFICER Oxygen Saturation 94% 06/27/2024 3:1 3 PM SPORTS DEVELOPMENT OFFICER Inhaled Oxygen Concentration - - Weight 76.2 kg (168 lb) 06/27/2024 3:13 PM SPORTS DEVELOPMENT OFFICER Height - - Body Mass Index - - Plan of Treatment Upcoming Encounters Date Type Department Care Team (Late st Contact Info) Description 10/24/2024 2:45 PM CDT Office Visit [facility] Oncology and Hematology - [place] [address] [facility] [address] [place] [address] Danielito Telles MD [address] [facility] [address] [place] [address] Health Maintenance Due Date Last Done Comments DTAP/TDAP/TD VACCINES (1 - Tdap) 1964 PNEUMOCOCCAL VACCINE 50+ YEARS (1 of 2 - PCV) 12/09/18 65 ZOSTER VACCINE (1 of 2) 12/10/1995 OSTEOPOROSIS SCREENING 2010 RSV VACCINE (60+ or ) (1 - 1-dose 75+ series) 2020 INFLUENZA VACCINE (#1) 2024 03/13/2022 Insurance AETNA PPO MCR [facility] PPO [place] [id number] Care Teams Sales Assistant Institutional Sales Relationship Specialty Start Date End Date Almas Bravo MD [address] [place] [address] PCP - General Family Practice 06/27/24
== END 2024-10-16 13:10 | disposition home or self-care (01) ==
LOC: ANHIMG 13:09
PROVIDERS: PCP Family Medicine; Visit Provider Internal Medicine Hematology & Oncology
DX: C50.411 Malignant neoplasm of upper-outer quadrant of right female breast (principal); R92.8 Other abnormal and inconclusive findings on diagnostic imaging of breast
CPT/HCPCS: 77062; 77066; G0279

== ENCOUNTER 2024-10-16 13:52 | Outpatient (CLI) | payer MEDICARE, SELFPAY ==
[2024-10-16 14:06] LABS: Basophils Absolute Auto 0.1 K/mm3 (0.0-0.1); Basophils Percent Auto 0.9 % (0.2-1.2); Eosinophils Absolute Auto 0.1 K/mm3 (0-0.3); Eosinophils Percent Auto 1.6 % (0-4.4); Hematocrit 36.6 % (37.0-47.0); Hemoglobin 11.5 g/dL (12.0-15.0); Immature Granulocyte Absolute 0.03 K/mm3 (0.00-0.031); Immature Granulocyte Percent A 0.5 % (0-0.5); Lymphocytes Absolute Auto 0.79 K/mm3 (0.9-3.2); Lymphocytes Percent Auto 14.3 % (18.3-44.2); Mean Corpuscular HGB Conc 31.4 g/dl (32-36); Mean Corpuscular Hemoglobin 29.4 pg (26-34); Mean Corpuscular Volume 93.6 fl (80-100); Mean Platelet Volume 9.3 fl (7.4-10.4); Monocytes Absolute Auto 0.4 K/mm3 (0.1-0.6); Monocytes Percent Auto 7.4 % (2.6-8.5); Neutrophils Absolute Auto 4.1 K/mm3 (1.3-6.7); Neutrophils Percent Auto 75.3 % (45.5-73.1); Platelet Count Result 215 k/mm3 (150-375); Red Blood Count 3.91 M/mm3 (4.2-5.4); White Blood Count 5.5 K/mm3 (4.5-10.0)
--- OUTSIDE RECORDS SUMMARY | 2024-10-16 14:30 | XMS_ITS | Clinical Summary ---
Author Organization [facility] Address [address] [place] [address] Care Team Providers Care Cargo Service Supervisor Name Role Phone Eligio Menezes DO Primary Care Provider [phone] Allergies Active Allergy Reactions Criticality Noted Date [...] on file Legal Sex Female 9:28 PM WAREHOUSE RECEIVING SUPERVISOR Gender Identity Not on file Sexual Orientation Not on file Last Filed Vital Signs Vital Sign Reading Time Taken Comments Blood Pressure 173/100 05/06/2022 2:20 AM WAREHOUSE RECEIVING SUPERVISOR Pulse 68 05/06/2022 2:20 AM WAREHOUSE RECEIVING SUPERVISOR Temperature 37 C (98.6 F) 05/05/2022 10:03 PM WAREHOUSE RECEIVING SUPERVISOR Respiratory Rate 20 05/06/2022 2:20 AM WAREHOUSE RECEIVING SUPERVISOR Oxygen Saturation 100% 05/06/2022 2:20 AM WAREHOUSE RECEIVING SUPERVISOR Inhaled Oxygen Concentration - - Weight 76.9 kg (169 lb 8.5 oz) 05/05/2022 10:03 PM WAREHOUSE RECEIVING SUPERVISOR Height 161.3 cm (5' 3.5 ) 05/05/2022 10:03 PM CS T Body Mass Index 29.56 05/05/2022 10:03 PM WAREHOUSE RECEIVING SUPERVISOR Plan of Treatment Health Maintenance Due Date Last Done Comments Hepatitis C 12[birth year]10/1963 DTaP, Tdap and Td Vaccines (1 - Tdap) 1964 Pneumococcal Vaccine: 50+ Years (1 of 1 - PCV) 12/10/1995 Zoster Vaccines (1 of 2) 12/10/1995 Annual Medicare Wellness Visit 2010 Dexa Scan (General) 2010 RSV Immunization or 60+ Years (1 - 1-dose 75+ series) 2020 COVID-19 Vaccine ( season) 2024 02/19/2022, 09/23/2021, 04/22/2021, Additional history exists Meningococcal B Vaccine Aged Out No l onger eligible based on patient's age to complete this topic Meningococcal Vaccine Aged Out No branden awilda eligible based on patient's age to complete this topic RSV Immunizations Under 20 Months Aged Out No longer eligible based on patient's age to complete this topic Insurance AETNA [facility] [place] [id number] Care Teams Cargo Service Supervisor Relationship Specialty Start Date End Date Eligio Menezes DO [address] [place] [address] PCP - General INTERNAL MEDICINE 05/05/22
--- OUTSIDE RECORDS SUMMARY | 2024-10-16 14:30 | XMS_ITS | Referral Summary ---
Author Organization [address] Address [address] [place] [address] Care Team Providers Care Supervisory Historian Name Role Phone Almas Bravo MD Primary Care Provider [phone] Mark Eduardo MD Unavailable [phone] Aft, Tete Juarez MD PhD Unavailable [phone] Allergies Active Allergy Reactions Criticality Noted Date Comments Cephalexin Rash Medium 05/05/2022 Doxycycline Rash Medium 10/09/2021 rash Ketamine Hallucinations Medium 05/02/2018 Penicillins Rash Medium Reaction: RASH, Medications zolpidem (AMBIEN) 10 mg tabletIndication s:Sleep-Onset Insomnia Take 1 tablet (10 mg total) by mouth nightly as needed for sleep 1 8 Active b complex vitamins capsuleIndicatio ns:Vitamin Deficiency Prevention Take 1 capsule by mouth scientific investigator before breakfast Active ketoconazole (NIZORAL) 2 % shampoo Apply 1 Application topically as needed for dandruff 3 8 Active magnesium oxide 400 mg capsuleIndicatio ns:hypomagnesemi a,kidney Disease Take 400 mg by mouth 2 (two) times a day Active cholecalciferol (VITAMIN D-3) 4,000 unit capsuleIndicatio ns:Prevention of Vitamin D Deficiency Take 1 capsule (4,000 Units total) by mouth scientific investigator before breakfast Active REPATHA SURECLICK 140 mg/mL [...] Deficiency Prevention Take 1 tablet by mouth scientific investigator before breakfast Active losartan-hydroCH LOROthiazide (HYZAAR) 50-12.5 [...] 4 tablets (100 mg total) by mouth scientific investigator before breakfast Active omalizumab (Xolair) 150 mg/mL auto-injectorInd ications:Chronic Idiopathic Urticaria,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 Inject 1 mL under the skin every 30 (thirty) days Active cycloSPORINE (RESTASIS) 0.05 % ophthalmic emulsion Administer 1 drop into both eyes as needed 4 Active levothyroxine (SYNTHROID) 75 mcg tabletIndication s:hypothyroidism Take 1 tablet (75 mcg total) by mouth scientific investigator before breakfast 4 Active lidocaine (LIDODERM) 5 % Place 1 patch on the skin as needed for pain 4 Active potassium citrate ER (UROCIT-K) 10 mEq (1,080 mg) CR tabletIndication s:Urate Renal Calculi Take 1 tablet (10 mEq total) by mouth 2 (two) times a day 4 Active ELDERBERRY FRUIT ORALIndications: supplement Take 1 tablet by mouth scientific investigator before breakfast Active HYDROcodone-acet aminophen (NORCO) 5-325 [...] on file Legal Sex Female 8:49 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 Peripheral Vascular [id number] / / Insurance [employer] COMMERCIAL GENERIC AET MEDICARE [facility] Address: [facility] [id number] [place] [phone] [facility] MEDIC[facility] OPTIONS PPO [facility] HMO/PPO Address: [address] [address] [place] [address] Advance Directives For more information, please contact: [phone] * Full Code (Latest Code Status on File) Date Activated Date Inactivated Comments 05/09/2018 10:28 PM 05/10/2018 2:25 PM Care Teams Supervisory Historian Relationship Specialty Start Date End Date Almas Bravo MD PCP - General Family Practice 08/26/23 Mark Eduardo MD [phone] [place] [address] Surgeon Colon and Rectal Surgery 08/26/23 Aft, Tete Juarez MD PhD [address] [place] [address] Surgeon Surgical Oncology 03/07/24
--- OUTSIDE RECORDS SUMMARY | 2024-10-16 14:30 | XMS_ITS | Encounter Summary ---
Author Organization [facility] Healthcare Address [address] [place] [address] Care Team Providers Care Data Support Analyst Name Role Phone Unavailable Primary Care Provider Unavailabl e Reason for Visit * Diagnostic Imaging (Routine) - Pending Review Specialty Diagnoses / Procedures Referred By Contac t Referred To Contact Procedures Breast Imaging Screening Outside Reference Aft, Tete Juarez MD PhD [address] [place] [address] Phone: tel: fax: Referral ID Status Reason Start Date Expiration Date V isits Requested Visits Authorized [id number] Pending Review 02/15/2024 03/16/2025 1 1 Encounter Details Date Type Department Care Team (Late st Contact Info) Description 06/08/2017 Hospital Encounter [facility] [address] [place] [address] Social History Tobacco Use Types Packs/Day Years [...] on file 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 Radiology. There will be no report generated by a [facility] Radiologist. Narrative [facility] - 02/15/2024 6:24 PM CDT EXAMINATION: Images For Reference Purposes Only us Tete Acevedo MD PhD IMG MAMMO PROCEDURES Final Result [facility] documented in this encounter Visit Diagnoses Not on filedocumented in this encounter
--- OUTSIDE RECORDS SUMMARY | 2024-10-16 14:30 | XMS_ITS | Clinical Summary ---
Author Organization [address] Address [address] [place] [address] Care Team Providers Care Heating And Blending Supervisor Name Role Phone Almas Bravo MD Primary Care Provider [phone] Mark Eduardo MD Unavailable [phone] Aft, Tete Juarez MD PhD Unavailable [phone] Allergies Active Allergy Reactions Criticality Noted Date [...] Take 1 capsule by mouth early childhood education worker before breakfast Active ketoconazole (NIZORAL) 2 % shampoo Apply 1 Application topically as needed for dandruff 3 8 Active magnesium oxide 400 mg capsuleIndicatio ns:hypomagnesemi a,kidney Disease Take 400 mg by mouth 2 (two) times a day Active cholecalciferol (VITAMIN D-3) 4,000 unit capsuleIndicatio ns:Prevention of Vitamin D Deficiency Take 1 capsule (4,000 Units total) by mouth early childhood education worker before breakfast Active REPATHA SURECLICK 140 [...] Take 1 tablet by mouth early childhood education worker before breakfast Active losartan-hydroCH LOROthiazide (HYZAAR) [...] (100 mg total) by mouth early childhood education worker before breakfast Active omalizumab (Xolair) 150 mg/mL auto-injectorInd ications:Chronic Idiopathic Urticaria,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 Inject 1 mL under the skin every 30 (thirty) days Active cycloSPORINE (RESTASIS) 0.05 % ophthalmic emulsion Administer 1 drop into both eyes as needed 4 Active levothyroxine (SYNTHROID) 75 mcg tabletIndication s:hypothyroidism Take 1 tablet (75 mcg total) by mouth early childhood education worker before breakfast 4 Active lidocaine (LIDODERM) 5 % Place 1 patch on the skin as needed for pain 4 Active potassium citrate ER (UROCIT-K) 10 mEq (1,080 mg) CR tabletIndication s:Urate Renal Calculi Take 1 tablet (10 mEq total) by mouth 2 (two) times a day 4 Active ELDERBERRY FRUIT ORALIndications: supplement Take 1 tablet by mouth early childhood education worker before breakfast Active HYDROcodone-acet aminophen (NORCO) [...] 06/14/1959 Surgical History Surgery Date Site/Laterality Comments SC OPEN IMPLANTATION NARESH SACRAL NERVE 01/13/2024 - [...] on file 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 COMMERCIAL GENERIC AETNA MEDICARE AETNA MEDICARE AETNA MEDICARE [employer] OPTIONS PPO Advance Directives For more information, please contact: [phone] * Full Code (Latest Code Status on File) Date Activated Date Inactivated Comments 05/09/2018 10:28 PM 05/10/2018 2:25 PM Care Teams Heating And Blending Supervisor Relationship Specialty Start Date End Date Almas Bravo MD PCP - General Family Practice 08/26/23 Mark Eduardo MD [phone] [place] [address] Surgeon Colon and Rectal Surgery 08/26/23 Aft, Tete Juarez MD PhD [address] [place] [address] Surgeon Surgical Oncology 03/07/24
--- OUTSIDE RECORDS SUMMARY | 2024-10-16 14:31 | XMS_ITS | Clinical Summary ---
Author Organization [facility] Address [address] [place] [address] Phone Care Team Providers Care Boss Miner Name Role Phone Eligio Menezes DO Primary Care Provider [phone] Allergies Active Allergy Reactions Criticality Noted Date [...] on file Legal Sex Female 9:37 AM [facility] Gender Identity Not on file Sexual Orientation Not on file Last Filed Vital Signs Vital Sign Reading Time Taken Comments Blood Pressure 116/70 05/11/2022 10:14 AM PAID INTERN Pulse 72 05/11/2022 10:14 AM PAID INTERN Temperature 35.6 C (96 F) 05/11/2022 10:14 AM PAID INTERN Respiratory Rate - - Oxygen Saturation - - Inhaled Oxygen Concentration - - Weight 77.1 kg (170 lb) 05/11/2022 10:14 AM PAID INTERN Height 160 cm (5' 3 ) 05/11/2022 10:14 AM PAID INTERN Body Mass Index 30.11 05/11/2022 10:14 AM PAID INTERN Plan of Treatment Health Maintenance Due Date Last Done Comments Pneumococcal PPSV23/PCV13 65 + Years / High and Highest Risk (1 of 5 - PCV) 1964 Influenza Vaccine (Season Ended) 2025 03/13/20 22 Insurance [facility] [place] [address] [employer] MEDICARE ADVANTAGE Care Teams Boss Miner Relationship Specialty Start Date End Date Eligio Menezes DO [address] [place] [phone] PCP - General Internal Medicine 09/15/21
--- OUTSIDE RECORDS SUMMARY | 2024-10-16 14:31 | XMS_ITS | Clinical Summary ---
Author Organization [facility] Address [address] [place] [address] Care Team Providers Care Roving Frame Tender Name Role Phone Almas Bravo MD Primary Care Provider [phone] Allergies Active Allergy Reactions Criticality Noted Date [...] Department Care Team Description 10/12/2024 Orders Only [facility] Oncology and Hematology - [place] [address] [place] [address] Danielito Telles MD Malignant neoplasm [...] on file Legal Sex Female 8:13 AM PRINTING TABLE HAND Gender Identity Not on file Sexual Orientation Not on file Last Filed Vital Signs Vital Sign Reading Time Taken Comments Blood Pressure 167/88 06/27/2024 3:13 PM PRINTING TABLE HAND Patient forgot to take medication for BP Pulse 81 06/27/2024 3:13 PM PRINTING TABLE HAND Temperature 36.4 C (97.6 F) 06/27/2024 3:13 PM PRINTING TABLE HAND Respiratory Rate 14 06/27/2024 3:13 PM PRINTING TABLE HAND Oxygen Saturation 94% 06/27/2024 3:1 3 PM PRINTING TABLE HAND Inhaled Oxygen Concentration - - Weight 76.2 kg (168 lb) 06/27/2024 3:13 PM PRINTING TABLE HAND Height - - Body Mass Index - - Plan of Treatment Upcoming Encounters Date Type Department Care Team (Late st Contact Info) Description 10/24/2024 2:45 PM CDT Office Visit [facility] Oncology and Hematology - [place] [address] [facility] [address] [place] [address] Danielito Telles MD [address] [facility] [address] [place] [address] Health Maintenance Due Date Last Done Comments DTAP/TDAP/TD VACCINES (1 - Tdap) 1964 PNEUMOCOCCAL VACCINE 50+ YEARS (1 of 2 - PCV) 12/09/18 65 ZOSTER VACCINE (1 of 2) 12/10/1995 OSTEOPOROSIS SCREENING 2010 RSV VACCINE (60+ or ) (1 - 1-dose 75+ series) 2020 INFLUENZA VACCINE (#1) 2024 03/13/2022 Medicare Advantage ([place]) Prev entative Visit/Annual Wellness Visit 06/14/2024 Insurance AETNA PPO MCR [facility] PPO [place]E [place] [id number] Care Teams Roving Frame Tender Relationship Specialty Start Date End Date Almas Bravo MD [address] [place] [address] PCP - General Family Practice 06/27/24
--- OUTSIDE RECORDS SUMMARY | 2024-10-16 14:31 | XMS_ITS | CONTINUITY OF CARE DOCUMENT ---
Author Name reena, reena Address Unknown Organization [facility] Address [address] [place] [address] Phone [phone] Care Team Providers Care Installation Supervisor Name Role Phone Brenna CELIS, Dickson Unavailable DORINA CELIS, KARYN Unavailable [phone] DORINA CELIS, KARYN Unavailable [phone] PROBLEMS Condition Status Date Provider Notes Examination, [...] Alexandru Colon MD T OO REMOTE TO [facility] VITAMIN D DEFICIENCY;on rx active Alexandru rosado [...] In-person encounter Office Visit Dickson Ceja MD [facility] - In-person encounter Office Visit Dickson Ceja MD [facility] - In-person encounter Office Visit Dickson Ceja MD [facility] - In-person encounter Office Visit Dickson Ceja MD [facility] - In-person encounter Office Visit Dickson Ceja MD [facility] - In-person encounter Office Visit Dickson Ceja MD [facility] - In-person encounter Office Visit Dickson Ceja MD [facility] Shortness of breath (SOB) - In-person encounter Office Visit Dickson Ceja MD [facility] - In-person encounter Office Visit Dickson Ceja MD [facility] - In-person encounter Office Visit Dickson Ceja MD [facility] - In-person encounter Office Visit Dickson Ceja MD [facility] - In-person encounter Office Visit Dickson Ceja MD [facility] Atrial fib, paroxysmal - In-person encounter Office Visit Martha Palmer MD [facility] - In-person encounter Office Visit Dickson Ceja MD [facility] Pacemaker: - In-person encounter Office Visit Dickson Ceja MD [facility] Sick sinus syndrome - In-person encounter Office Visit Tg Noel MD [facility] Ventricular tachycardiaSVT - In-person encounter Office Visit Dickson Ceja MD [facility] Palpitations - In-person encounter Office Visit Alexandru Colon MD [facility] SyncopeCORONARY ARTERY DISEASE, FAMILY HXCADCHEST PAIN-03/23 CATH NO FLOW LIMITING LESION EF 60Family History Coronary Heart Disease male < 55:Family History of Sudden Cardiac :Family History Coronary Heart Disease male < 55:Family History of Sudden Cardiac :FAMILY HISTORY OF HEART DISEASETobacco use, quitVITAMIN D DEFICIENCY;on rx - In-person encounter Office Visit Dickson Ceja MD [facility] Fluid retention - In-person encounter Office Visit Dickson Ceja MD [facility] - In-person encounter Office Visit Dickson Ceja MD [facility] - In-person encounter Office Visit Dickson Ceja MD [facility] - In-person encounter Office Visit Dickson Au Office - In-person encounter Office Visit Dickson Ceja MD [facility] - In-person encounter Office Visit Dickson Ceja MD [facility] - In-person encounter Office Visit Dickson Ceja MD [facility] ABDOMINAL PAIN-05/24 ABD US NEGHTN ESSENTIAL-05/24 DIXIE DUP NEG - In-person encounter Office Visit Dickson Ceja MD [facility] - In-person encounter Office Visit Dickson Ceja MD [facility] CHEST PAIN-03/23 CATH NO FLOW LIMITING [...] center pulse rate 70 /min [facility] weight E&M 169 [lb_av] [facility] height E&M 64 [in_i] [facility] Body Mass Index (Ratio) 28.83 kg/m2 [...] mason Rhodes blood pressure, systolic 138 mm[Hg] [facility] pulse rate 72 /min Omaira [...] Ai Terrell blood pressure, systolic 130 mm[Hg] [facility] freddy Terrell oxygen saturation, oximetry [...] MD blood pressure, diastolic 90 mm[Hg] [facility], systolic 140 mm[Hg] Steffanie cerda [place] oxygen saturation, oximetry 93 % [facility] E&M 16 /min Carlota Flanagan pulse rate 67 /min [place] Flanagan weight E&M 186 [lb_av] Carlota Flanagan height E&M 64 [in_i] Carlota Flanagan Body Mass Index (Ratio) 31.92 kg/m2 Quintin Ceja MD blood pressure, diastolic 78 mm[Hg] Gilson Bhatt blood pressure, systolic 148 mm[Hg] Maddie Bhatt oxygen saturation, oximetry 98 % Rdaha Bhatt respiratory rate E&M 18 /min Olu Bhatt pulse rate 64 /min Radha Butt payam weight E&M 186 [lb_av] Radha Butt [facility] height E&M 64 [in_i] Radha Butt [facility] Body Mass Index (Ratio) 32.44 kg/m2 Quintin Ceja MD blood pressure, diastolic 80 mm[Hg] Louis lleen Flanagan blood pressure, systolic 130 mm[Hg] Steffanie ropern Flanagan oxygen saturation, oximetry 98 % [facility] respiratory rate E&M 16 /min Carlota Flanagan pulse rate 57 /min Carlota Flanagan weight E&M 189 [lb_av] [place] Flanagan height E&M 64 [in_i] Carlota Flanagan Body Mass Index (Ratio) 32.78 kg/m2 Jon melgar Hector blood pressure, diastolic 76 mm[Hg] Da simon Ronda blood pressure, systolic 118 mm[Hg] Dac ia Ronda oxygen saturation, oximetry 95 % Venecia Ronda respiratory rate E&M 16 /min Venecia V oss pulse rate 58 /min Veencia Ronda weight E&M 191 [lb_av] Venecia Ronda [...] /min Carlota Flanagan weight E&M 193 [lb_av] [place] Flanagan height E&M 64 [in_i] [place] Flanagan Body Mass Index (Ratio) 32.78 kg/m2 [...] silva Ahumada weight E&M 194 [lb_av] Dorothy Morneo er Body Mass Index (Ratio) 33.30 kg/m2 Noelle del castillo Marti blood pressure, diastolic 84 mm[Hg] Pa eri Marti blood pressure, systolic 131 mm[Hg] [...] MA blood pressure, systolic 151 mm[Hg] Jia Georgeaamnda RIGGINS pulse rate 53 /min Hiroangel George [...] LinkLogic 0-149 cholesterol, serum 177 mg/dL [employer] [phone]/02 /03 calcium, serum 8.6 mg/dL [employer] 8.7-10.3 Low carbon dioxide, venous blood 24 mmol/L [employer] 20-29 chloride, serum 108 mmol/L [employer] 96-106 High potassium, serum 4.2 mmol/L [employer] 3.5-5.2 sodium, serum 143 mmol/L [employer] 420-421 0262/02 /03 urea nitrogen/creatinine ratio, serum 15 [employer]Logic [...] Not Estab. platelet count 288 X10E3/UL LinkLog 225-399 0499/02 /03 red blood cell distribution width 13.3 [...] iron binding capacity, unsaturated 223 ug/dL LinkLog [phone]/03 /12 iron binding capacity, total 268 ug/dL LinkLog 051-576 5153/03 /12 lipoprotein, beta, serum, point, quantitative, calculated 72 mg/dL LinkLog 0-99 HDL cholesterol, serum 99 mg/dL [employer] >39 triglyceride, serum, random 86 mg/dL [employer] 0-149 cholesterol, serum 186 mg/dL [employer] [phone]/03 /12 basophil count, absolute 0.1 x10E3/uL LinkLogic [...] Not Estab. platelet count 301 X10E3/UL [employer] [phone]/03 /12 red blood cell distribution width 12.8 [...] Not Estab. platelet count 231 X10E3/UL [employer] 467-211 3318/10 /23 red blood cell distribution width 13.7 [...] iron binding capacity, unsaturated 157 ug/dL [employer] 246-300 2583/09 /11 iron binding capacity, total 238 ug/dL [...] Not Estab. platelet count 266 X10E3/UL [employer] 420-295 8617/09 /11 red blood cell distribution width 13.2 [...] LinkLogic 0-149 cholesterol, serum 157 mg/dL [employer] [phone]/07 /31 calcium, serum 8.9 mg/dL [employer] 8.7-10.3 carbon dioxide, venous blood 25 mmol/L [employer] 20-29 chloride, serum 106 mmol/L [employer] 96-106 potassium, serum 4.4 mmol/L [employer] 3.5-5.2 sodium, serum 143 mmol/L [employer] 623-116 3924/07 /31 urea nitrogen/creatinine ratio, serum 12 LinkLogic [...] Not Estab. platelet count 253 X10E3/UL [employer] 050-572 2703/07 /31 red blood cell distribution width 13.7 [...] iron binding capacity, unsaturated 135 ug/dL [employer] [phone]/05 /29 iron binding capacity, total 219 ug/dL [...] Not Estab. platelet count 249 X10E3/UL [employer]Log[employer] 336-117 0690/05 /29 red blood cell distribution width 15.0 [...] iron binding capacity, unsaturated 153 ug/dL [employer]Log[employer] 322-897 5942/03 /14 iron binding capacity, total 235 ug/dL [...] Not Estab. platelet count 253 X10E3/UL [employer]Logic 010-623 4277/03 /14 red blood cell distribution width 16.8 [...] LinkLogic 3.5-5.2 sodium, serum 142 mmol/L [employer] 551-109 6461/03 /14 urea nitrogen/creatinine ratio, serum 15 LinkLogic [...] iron binding capacity, unsaturated 215 ug/dL [employer] 631-016 6396/01 /13 iron binding capacity, total 251 ug/dL [employer] 211-491 2627/01 /12 bacteria, urine microscopy None seen LinkLogic [...] Not Estab. platelet count 350 X10E3/UL [employer]Logic 198-877 8007/01 /12 red blood cell distribution width 13.8 [...] LinkLogic 3.5-5.2 sodium, serum 143 mmol/L [employer] 589-219 9253/10 /13 urea nitrogen/creatinine ratio, serum 17 LinkLogic [...] Not Estab. platelet count 271 X10E3/UL [employer]Logic [phone]/10 /13 red blood cell distribution width 14.5 [...] iron binding capacity, unsaturated 199 ug/dL [employer]ic [phone]/09 /13 iron binding capacity, total 277 ug/dL [employer] 545-250 3070/09 /13 alanine aminotransferase (SGPT), serum 12 1/L [...] LinkLogic 3.5-5.2 sodium, serum 143 mmol/L [employer]ic 555-306 0279/09 /13 urea nitrogen/creatinine ratio, serum 18 LinkLogic [...] Not Estab. platelet count 281 X10E3/UL LinkLogic 696-014 0635/09 /13 red blood cell distribution width 16.8 [...] iron binding capacity, unsaturated 171 ug/dL [employer]Logic [phone]/07 /31 iron binding capacity, total 248 ug/dL [...] Not Estab. platelet count 298 X10E3/UL LinkLogic [phone]/07 /31 red blood cell distribution width 19.6 [...] 1.009 LinkLogic 1.005-1.030 anion gap, serum 9.2 [facility] estimated glomerular filtration rate >60 [facility] calcium, serum 9.1 mg/dL [facility] Vijay blood glucose, fasting 136 mg/dL [facility] [place] creatinine, serum 0.86 mg/dL [facility] Vijay urea nitrogen, blood 14.5 mg/dL [facility] Vijay carbon dioxide, serum, total 28 mmol/L [facility] [place] [facility] [place] chloride, serum 108 mmol/L [facility] Vijay potassium, serum 4.2 mmol/L sodium, [...] 5.2 % leukocyte count, blood 7.8 10*3/mm3 [facility] PTT patient 26.7 s prothrombin time (patient) 9.9 s [facility] international normalized ratio (INR) 1.0 [facility] Vijay anion gap, serum 8.2 estimated glomerular filtration rate >60 [facility] [place] calcium, serum 8.6 mg/dL [facility] blood glucose, fasting 82 mg/dL [facility] creatinine, serum 0.85 mg/dL [facility] urea nitrogen, blood 14.2 mg/dL [facility] carbon dioxide, serum, total 29 mmol/L chloride, serum 112 mmol/L potassium, serum 4.2 mmol/L sodium, serum 145 mmol/L [facility] platelet count 299 10*3/uL [facility] red blood cell distribution width 14.1 % [...] as percent of blood leukocytes 29.0 % Lyudimla Linares leukocyte count, blood 4.2 10*3/mm3 Lyudmila [...] SYRINGE SUBCUTANEOUSLY EVERY TWO WEEKS Cori Ventimiglia BRAND MARKETING MANAGER Repatha SureClick 140 mg/mL pen injector completed INJECT 1 PEN SUBCUTANEOUSLY EVERY 2 WEEKS - Cori Ventimiglia BRAND MARKETING MANAGER losartan-hydrochl orothiazide 50-12.5 mg tablet active Take 1 tablet by mouth once a day Cori Ventimiglia BRAND MARKETING MANAGER Repatha [employer] 140 mg/mL pen injector completed [...] tablet by mouth once a day - [facility] Karsten PA Specialist CEPHALEXIN 500 MG ORAL [...] 1 tablet once a day Cori Yungmiglmalu BRAND MARKETING MANAGER COZAAR 50 MG ORAL TABLET completed ONE [...] one daily - Carlota Flanagan NEOMYCIN-POLYMYXI N-DEXAMETH 3.5-26344-2.1 OPHTHALMIC SUSPENSION completed Apply to eyelids daily [...] history of marijuana use no Cori Ventimiglia [facility] drug use no Cori Ventimig maria fernanda [facility] alcohol use no Cori Ventimig maria fernanda [facility] passive cigarette sm mario exposure no Cori Ventimiglia [facility] smoking/tobacco cessation, patient education and counseling contraindicated Cori Ventimiglia [facility] smoking, year quit 2002 Cori Ve ntimiglia [facility] number of years as a smoker 10 years or more Cori Ventimiglia [facility] smoking history, tot al pack/year 7300 Cori Ventimiglia [facility] cigarette use yes Cori Ventimi glia [facility] smoking status Former smoker Cori Venti miglia [facility] social history revie wed E&M reviewed [...] Dickson Ceja MD seatbelt usage 100 % [facility] exercise type walks, rides bike [facility] physical exercise, frequency, days per week 3 /wk [facility] alcohol counseling no [facility] In the past 3 months , have you been waking up wanting to use drugs? (CAGE substance use question #4) N [facility] In the past 3 months , have you felt guilty or bad about using drugs? (CAGE substance use question #3) N [facility] In the past 3 months , has anyone annoyed you by telling you to cut down or stop using drugs? (CAGE substance use question #2) N [facility] In the past 3 months , have you felt you should cut down or stop using drugs?(CAGE substance use question #1) N [facility] alcohol use, average drinks per day social basis only [facility] alcohol use, type at holidays [facility] alcohol use no [facility] caffeine use, averag e drinks per day 1 /d [facility] drug use none [facility] passive cigarette sm mario exposure no [facility] smoking status Former smoker [facility] social history E&M Marital Statu s: L ras with family/friends E thnicity: Smoking History: Chava su is a former smoker. Martha Palmer MD social history revie wed E&M reviewed - no changes required Martha Palmer MD number of grandchildren Martha Palmer MD [facility] seatbelt usage 100 % [facility] exercise type walks, rides bike [facility] physical exercise, frequency, days per week 3 /wk [facility] alcohol counseling no [facility] In the past 3 months , have you been waking up wanting to use drugs? (CAGE substance use question #4) N [facility] In the past 3 months , have you felt guilty or bad about using drugs? (CAGE substance use question #3) N [facility] In the past 3 months , has anyone annoyed you by telling you to cut down or stop using drugs? (CAGE substance use question #2) N [facility] In the past 3 months , have you felt you should cut down or stop using drugs?(CAGE substance use question #1) N [facility] alcohol use, average drinks per day social basis only [facility] alcohol use, type at holidays [place] [facility] alcohol use no [facility] caffeine use, averag e drinks per day 1 /d [facility] drug use none [facility] passive cigarette sm mario exposure no [facility] smoking status Former smoker [facility] social history E&M Marital Statu s: [...] former smoker. Dickson Ceja MD social history [facility] E&M reviewed - no changes [...] drugs? (CAGE substance use question #4) N [facility] In the past 3 months , have you felt guilty or bad about using drugs? (CAGE substance use question #3) N [facility] In the past 3 months , has anyone annoyed you by telling you to cut down or stop using drugs? (CAGE substance use question #2) N [facility] In the past 3 months , have you felt you should cut down or stop using drugs?(CAGE substance use question #1) N [facility] alcohol use, average drinks per day social basis only [facility] alcohol use, type at holidays [facility] alcohol use no [facility] caffeine use, averag e drinks per day 1 /d [facility] drug use none [facility] passive cigarette sm mario exposure no [facility] smoking status Former smoker [facility] number of grandchildren Tg Young social history revie wed E&M reviewed - no changes required Richard Young social history E&M Marital Statu s: L ras with family/friends E thnicity: Smoking History: Chava su is a former smoker. Richard Young seatbelt usage 100 % [facility] exercise type walks, rides bike Venecia Robert s physical exercise, frequency, days per week 3 /wk Venecia Ronda alcohol counseling no Venecia Robert s In the past 3 months , have you been waking up wanting to use drugs? (CAGE substance use question #4) N [facility] In the past 3 months , have [...] using drugs?(CAGE substance use question #1) N [facility] alcohol use, average drinks per day social basis only [facility] alcohol use, type at holidays [facility] alcohol use no [facility] caffeine use, averag e drinks per day 1 /d [facility] drug use none [facility] passive cigarette sm mario exposure no [facility] smoking status Former smoker [facility] social history E&M Marital Statu s: L ras with family/friends E thnicity: Smoking History: Chava su is a former smoker. Dickson Ceja MD social history revie [facility] E&M reviewed - no changes [...] /d Radha Bhatt drug use none Radha espnioza passive cigarette sm mario exposure no Radha Bhatt smoking status Former smoker Radha Hinkle social history E&M Marital Statu s: L ras with family/friends E thnicity: Smoking History: Chava su is a former smoker. Alexandru Colon MD social history revie [facility] E&M reviewed - no changes required Alexandru Colon MD number of grandchildren Alexandru Colon MD [facility] seatbelt usage 100 % [facility] exercise type walks, rides bike [place] [facility] physical exercise, frequency, days per week 3 /wk [facility] alcohol counseling no [facility] In the past 3 months , have you been waking up wanting to use drugs? (CAGE substance use question #4) N [facility] In the past 3 months , have you felt guilty or bad about using drugs? (CAGE substance use question #3) N [facility] In the past 3 months , has anyone annoyed you by telling you to cut down or stop using drugs? (CAGE substance use question #2) N [facility] In the past 3 months , have you felt you should cut down or stop using drugs?(CAGE substance use question #1) N [facility] alcohol use, average drinks per day social basis only [facility] use, type at holidays [place] [facility] alcohol use no [place] Flanagan caffeine use, averag e drinks per day 1 /d Carlota drug use none [facility] passive cigarette sm mario exposure no [facility] smoking status Former smoker [facility] social history E&M Marital Statu s: L ras with family/friends E thnicity: Smoking History: Chava su is a former smoker. Dickson Ceja MD social history revie wed E&M reviewed - no changes required Dickson Ceja MD seatbelt usage 100 % [facility] exercise type walks, rides bike [facility] physical exercise, frequency, days per week 3 /wk [facility] alcohol counseling no [facility] In the past 3 months , have you been waking up wanting to use drugs? (CAGE substance use question #4) N [facility] In the past 3 months , have you felt guilty or bad about using drugs? (CAGE substance use question #3) N [facility] In the past 3 months , has anyone annoyed you by telling you to cut down or stop using drugs? (CAGE substance use question #2) N [facility] In the past 3 months , have you felt you should cut down or stop using drugs?(CAGE substance use question #1) N [facility] alcohol use, average drinks per day social basis only [facility] alcohol use, type at holidays [facility] alcohol use no [facility] caffeine use, averag e drinks per day 1 /d [facility] drug use none [facility] passive cigarette sm mario exposure no [facility] smoking status Former smoker [facility] social history E&M Marital Statu s: L ras with family/friends E thnicity: Smoking History: Chava su is a former smoker. iDckson Ceja MD social history revie wed E&M [...] RN FAMILY HISTORY Family Member Condition Father [place] male <55 Mother Family History of Co [...] Policy type / Coverage type Doe red libertarian ID [employer] MEDICARE KATE PPO Medicare [id number] [employer] [id number] ADVANCE DIRECTIVES Name Date DISCUSSED - NO DECISION MADE TREATMENT PLAN Date Name Performer [id number],S, Dickson Ramada n [id number],S, Dickson Ramada n [id number],S, Dickson Ramada n [id number],S, Dickson Ramada n [id number],S, Dickosn Ramada n [id number],S, Dickson Ramada n [id number],S, Dickson Ramada n [id number],S, Dickson Ramada n [id number],B, Dickson Ramada n ID [id number],S, Dickson Ramada n ID [id number],S, Dickson Ramada n ID [id number],S, Dickson Ramada n ID [id number],B, Dickson Ramada n ID [id number],S, Dickson Ramada n ID [id number],S, Dickson Ramada n ID [id number],S, Dickson Ramada n ID [id number],S, Dickson Ramada n ID [id number],S, Dickson Ramada n ID [id number],S, Dickson Ramada n ID [id number],S, Dickson Ramada n ID [id number],S, Dickson solomon MD Cardiology Dickson Ceja MD [...] Inject 1 syringe subcutaneously every two weeks [facility] Cardiology:will upda te echo and pBNP given SOB c onsider Jardiance if symptoms persist H er updated medication list for this problem includes: Losartan-hydrochlorothiazide 50-12.5 Mg Tablet (Losartan-hydrochlorothiazide) ..... Take 1 tablet by mouth once a day [facility] Cardiology:normal de vice function 8 0% RA pacing [facility] Cardiology:BP lower today h ave asked her to monitor and record at home w ill review and next visit and determine need to adjust therapy H er updated medication list for this problem includes: Losartan-hydrochlorothiazide 50-12.5 Mg Tablet (Losartan-hydrochlorothiazide) ..... Take 1 tablet by mouth once a day [facility] Cardiology:chronic m ore frequent W ill update echo w ill do labs to r/o underlying source w ill return in one month or sooner if needed. H er updated medication list for this problem includes: Losartan-hydrochlorothiazide 50-12.5 Mg Tablet (Losartan-hydrochlorothiazide) ..... Take 1 tablet by mouth once a day Coritommy Maxwell [facility] Cardiology:last neda ce check showed HVR episodes w ill check labs to r/o underlying source c onsider BB if recurrent P PM in place Coritommy Maxwell [facility] Cardiology Dickson Ceja MD Cardiology Dickson [...] Ceja MD Cardiology Dickson Ceja MD Cardiology Dicskon Ceja MD Cardiology:Needs PPM after EP study [...] up:See above. Orders: 9 9215 HIGH Complex ([id number]) S chedule Followup (*) E P Study [...] vs SVT. Will schedule EP study at [facility] on 04/16/18. Warfarin 2.5mg to be started 7 days prior to ablation. Orders: 9 9215 HIGH Complex ([id number]) S chedule Followup (*) E P Study [...] motion and systolic function. EF 60% - [facility] (03/18/2010) Dickson Ceja MD Follow [...] motion and systolic function. EF 60% - [facility] (03/18/2010) C arotid Doppler/Duplex: Normal [...] motion and systolic function. EF 60% - [facility] (03/18/2010) C arotid Doppler/Duplex: Normal [...] motion and systolic function. EF 60% - [facility] (03/18/2010) Dickson Ceja MD Follow [...] motion and systolic function. EF 60% - [facility] (03/18/2010) Dickson Ceja MD routine: [...] motion and systolic function. EF 60% - [facility] (03/18/2010) C arotid Doppler/Duplex: Normal [facility] (02/24/2010) H gb: 12.0 (03/18/2010) HCT: 38.0 [...] motion and systolic function. EF 60% - [facility] (03/18/2010) C arotid Doppler/Duplex: Normal [facility] (02/24/2010) H gb: 12.0 (03/18/2010) HCT: 38.0 [...] motion and systolic function. EF 60% - [facility] (03/18/2010) Dickson Ceja MD routine: [...] motion and systolic function. EF 60% - [facility] (03/18/2010) Dickson Ceja MD follow [...] There is trace physiologic mitral valve regurgitation. 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 Normal left ventricular wall motion and systolic function. EF 60% - [facility] (03/18/2010) Dickson Ceja MD Follow-up, c/o eleva antonio bp : O rders: S tress Test - Adenosine (91025) BP today: 118/68 Prior BP: 151/91 (07/07/2010) [...] motion and systolic function. EF 60% - [facility] (03/18/2010) C arotid Doppler/Duplex: Normal [facility] (02/24/2010) H gb: 12.0 (03/18/2010) HCT: 38.0 [...] There is trace physiologic mitral valve regurgitation. 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 Normal left ventricular wall motion and systolic function. EF 60% - [facility] (03/18/2010) Dickson Ceja MD Follow-up, c/o mecca alvarez bp : H er updated medication list for this problem includes: Losartan Potassium-hctz 50-12.5 Mg Tabs (Losartan potassium-hctz) ..... 1 tab daily Orders: R enal Artery Duplex ([id number]-[id number]) BP today: 118/68 P rior BP: 151/91 [...] motion and systolic function. EF 60% - [facility] (03/18/2010) Dickson Ceja MD follow [...] motion and systolic function. EF 60% - [facility] (03/18/2010) C arotid Doppler/Duplex: Normal [facility] (02/24/2010) H gb: 12.0 (03/18/2010) HCT: 38.0 [...] motion and systolic function. EF 60% - [facility] (03/18/2010) C arotid Doppler/Duplex: Normal [facility] (02/24/2010) H gb: 12.0 (03/18/2010) HCT: 38.0 [...] motion and systolic function. EF 60% - [facility] (03/18/2010) Dickson Ceja MD test psehsjj-ib-wydv f/u: B P today: 149/97 Prior BP: / () Dickson Ceja MD test ahtlrdg-ks-rfgq f/u: B P today: 149/97 Dickson Ceja MD test gzuwkqk-ib-xbui f/u: B P today: 149/97 Prior BP: [...] regurgitation. O (02/24/2010) Dickson Ceja MD test muqbjic-hz-jegz f/u: B P today: 149/97 Prior BP: [...] ne Stress Regadenoson Complete Echo DLCO - 84595 FRC - 40657 FVC - 87573 CBC (INCLUDES DIFF/P LT) FERRITIN IRON AND [...] FERRITIN CBC (INCLUDES DIFF/P LT) DLCO - 86462 FRC - 54047 FVC - 20717 CT, Coronary Calcium Score LIPID PANEL Vitamin [...] d FVC / MVV with bronchodilator - 97853 Dickson Ceja MD completed FRC - 63072 Dickson Ceja MD complet ed SpO2 w/o 6min walk/titration Dickson Ceja MD completed SVC - 61878 Dickson Ceja MD complet ed DLCO - 50948 Dickson Ceja MD comple antonio EKG Dickson [...] Dickson Ceja MD INTERROGATION REMOTE </90 D EARRING MAKER REVIEW completed Pacemaker Interrogation, Remote (Prof) Dickson Ceja MD INTERROGATION EVAL REMOTE </90 D 1/2/OXYACETYLENE CUTTER LEAD P completed ICM Interrogation, Remote (Prof) [...] garcia MD completed FVC / MVV - 36027 Alexandru Colon MD c ompleted FRC - 18688 Alexandru Colon MD complet ed SpO2 w/o 6min walk/titration Alexandru Colon MD completed DLCO - 38550 Alexandru Colon MD comple antonio Regadenoson, 4 [...] 1 hour Dickson Ceja MD completed SNOMED-CT: [id number] Current Medications Documented Dickson Ceja MD completed Stress EKG Amira Diamond MD completed Regadenoson, 4 units Dickson Ceja MD completed Cardiolite, 2 units Dickson Ceja MD completed SPECT Images Amira Diamond MD complet ed SNOMED-CT: [id number] Current Medications Documented Dickson Ceja MD completed EKG KEITH LUCIO MD completed EKG Dickson Ceja MD complete d EKG Dickson Ceja MD complete d
[2024-10-16 16:32] LABS: Alanine Aminotransferase 14 U/L (6-35); Alkaline Phosphatase 75 U/L (38-126); Anion Gap 8 mmol/L (4-12); Aspartate Amino Transferase 50 U/L (14-36); Bilirubin,Total 0.4 mg/dL (0.2-1.3); Blood Urea Nitrogen 22 mg/dL (7-17); Calcium 8.8 mg/dL (8.4-10.2); Carbon Dioxide 24 mmol/L (22-30); Chloride 110 mmol/L (98-107); Estimated Glomerular Filt Rate 48; Glucose 72 mg/dL (65-110); Potassium 3.9 mmol/L (3.4-5.0); Sodium 142 mmol/L (137-145)
[2024-10-18 01:47] LABS: CA 15-3 18 U/mL (<32)
== END 2024-10-16 13:53 | disposition home or self-care (01) ==
PROVIDERS: PCP Family Medicine; Visit Provider Internal Medicine Hematology & Oncology
DX: C50.919 Malignant neoplasm of unspecified site of unspecified female breast (principal); Z17.0 Estrogen receptor positive status [ER+]
CPT/HCPCS: 36415; 80053; 85025; 86300

== ENCOUNTER 2025-02-26 14:01 | Outpatient (CLI) | payer MEDICARE, SELFPAY ==
--- OUTSIDE RECORDS SUMMARY | 2017-06-08 01:00 | XMS_ITS | Encounter Summary ---
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 Role Phone Unavailable Primary Care Provider Unavailabl e Reason for Visit * Diagnostic Imaging (Routine) - Pending Review Specialty Diagnoses / Procedures Referred By Contac t Referred To Contact Procedures Breast Imaging Screening Outside Reference Aft, Tete Juarez MD PhD [address] [place] [id number] Phone: tel: fax: Referral ID Status Reason Start Date Expiration Date V isits Requested Visits Authorized [id number] Pending Review 02/15/2024 03/16/2025 1 1 Encounter Details Date Type Department Care Team (Late st Contact Info) Description 06/08/2017 Hospital Encounter [facility] [address] [place] [id number] Social History Tobacco Use Types Packs/Day Years Used Date Smoking Tobacco: Former Cigarettes Q uit: 1989 Smokeless Tobacco: Never Alcohol Use Standard Drinks/Week Comments Yes 0 (1 standard drink = 0.6 oz pur e alcohol) rarely AUDIT-C Answer Date Recorded Q1: How often do you have a drink containing alc ohol? Monthly or less 03/07/2024 Q2: How many drinks containi ng alcohol do you have on a typical day when you are drinking? 1 or 2 03/07/2024 Q3: How often do you have si x or more drinks on one occasion? Never 03/07/2024 PHQ-2 Answer Date Recorded PHQ-2 Score 0 08/20/2018 Personal Safety Answer Date Recorded Have you ever been in or are you currently in a harmful physical or emotional relationship or is someone making you feel afraid or unsafe? 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 Monthly or less 03/07/2024 8:21 AM Anatoly Santoro RN Q2: How many drinks containing alcohol do you have on a typical day when you are drinking? 1 or 2 03/07/2024 8:21 AM Anatoly Santoro RN Q3: How often do you have six or more drinks on one occasion? Never 03/07/2024 8:21 AM Anatoly Santoro RN documented as of this encounter Plan of Treatment Not on file documented as of this encounter Procedures Procedure Name Priority Date/Time Associated Diagnosis Comments BREAST IMAGING MG SCREENING OUTSIDE REFERENCE Routine 06/08/2017 12:00 AM SQL SSIS DEVELOPER documented in this encounter Results * Breast Imaging Screening Outside Reference (06/08/2017 12:00 AM SQL SSIS DEVELOPER) Impressions [facility] - 02/15/2024 6:24 PM CDT These images are for Reference purposes only and have not been reviewed by [facility] Radiology. There will be no report generated by a [facility] Radiologist. Narrative [facility] - 02/15/2024 6:24 PM CDT EXAMINATION: Images For Reference Purposes Only us Tete Acevedo MD PhD IMG MAMMO PROCEDURES Final Result [facility] documented in this encounter Visit Diagnoses Not on filedocumented in this encounter
[2025-02-26 14:19] LABS: Hematocrit 37.3 % (37.0-47.0); Hemoglobin 12.1 g/dL (12.0-15.0); Immature Granulocyte Percent A 0.5 % (0-0.5); Lymphocytes Absolute Auto 0.88 K/mm3 (0.9-3.2); Mean Corpuscular HGB Conc 32.4 g/dl (32-36); Mean Corpuscular Hemoglobin 30.0 pg (26-34); Mean Corpuscular Volume 92.3 fl (80-100); Nucleated Red Blood Cells Absolute Auto 0.000 K/mm3 (0.0-0.012); Nucleated Red Blood Cells Perc 0.0 % (0.0-0.2); Platelet Count Result 228 k/mm3 (150-375); Red Blood Count 4.04 M/mm3 (4.2-5.4); White Blood Count 4.3 K/mm3 (4.5-10.0)
[2025-02-26 16:44] LABS: Alanine Aminotransferase 12 U/L (6-35); Albumin Level 3.9 g/dL (3.5-5.1); Alkaline Phosphatase 79 U/L (38-126); Anion Gap 7 mmol/L (4-12); Aspartate Amino Transferase 37 U/L (14-36); Bilirubin,Total 0.4 mg/dL (0.2-1.3); Blood Urea Nitrogen 22 mg/dL (7-17); Calcium 8.7 mg/dL (8.4-10.2); Carbon Dioxide 27 mmol/L (22-30); Chloride 105 mmol/L (98-107); Estimated Glomerular Filt Rate 38; Glucose 88 mg/dL (65-110); Potassium 3.5 mmol/L (3.4-5.0); Sodium 139 mmol/L (137-145); Total Protein 6.9 g/dL (6.3-8.2)
--- OUTSIDE RECORDS SUMMARY | 2025-02-26 16:53 | XMS_ITS | Clinical Summary ---
Author Organization [facility] Address [address] [place] [phone] Phone Care Team Providers Care Beater And Pulper Feeder Name Role Phone Eligio Menezes DO Primary Care Provider [phone] Allergies Active Allergy Reactions Criticality Noted Date [...] on file Legal Sex Female 9:37 AM [facility] Gender Identity Not on file Sexual Orientation Not on file Last Filed Vital Signs Vital Sign Reading Time Taken Comments Blood Pressure 116/70 05/11/2022 10:14 AM MEMBERSHIP CORRESPONDENT Pulse 72 05/11/2022 10:14 AM MEMBERSHIP CORRESPONDENT Temperature 35.6 C (96 F) 05/11/2022 10:14 AM MEMBERSHIP CORRESPONDENT Respiratory Rate - - Oxygen Saturation - - Inhaled Oxygen Concentration - - Weight 77.1 kg (170 lb) 05/11/2022 10:14 AM MEMBERSHIP CORRESPONDENT Height 160 cm (5' 3) 05/11/2022 10:14 AM MEMBERSHIP CORRESPONDENT Body Mass Index 30.11 05/11/2022 10:14 AM MEMBERSHIP CORRESPONDENT Plan of Treatment Health Maintenance Due Date Last Done Comments Pneumococcal PPSV23/PCV13 65 + Years / High and Highest Risk (1 of 5 - PCV) 1964 Influenza Vaccine (#1) 2025 03/13/[address] [facility] AENA MEDICARE ADVANTAGE Care Teams Beater And Pulper Feeder Relationship Specialty Start Date End Date Eligio Menezes DO [address] [place] [address] PCP - General Internal Medicine 09/15/21
--- OUTSIDE RECORDS SUMMARY | 2025-02-26 16:53 | XMS_ITS | Clinical Summary ---
Author Organization [facility] Address [address] [place] [address] Care Team Providers Care Oracle Obiee Developer Name Role Phone Eligio Menezes DO Primary Care Provider [phone] Allergies Active Allergy Reactions Criticality Noted Date [...] on file Legal Sex Female 9:28 PM FEATHER CURLING MACHINE OPERATOR Gender Identity Not on file Sexual Orientation Not on file Last Filed Vital Signs Vital Sign Reading Time Taken Comments Blood Pressure 173/100 05/06/2022 2:20 AM FEATHER CURLING MACHINE OPERATOR Pulse 68 05/06/2022 2:20 AM FEATHER CURLING MACHINE OPERATOR Temperature 37 C (98.6 F) 05/05/2022 10:03 PM FEATHER CURLING MACHINE OPERATOR Respiratory Rate 20 05/06/2022 2:20 AM FEATHER CURLING MACHINE OPERATOR Oxygen Saturation 100% 05/06/2022 2:20 AM FEATHER CURLING MACHINE OPERATOR Inhaled Oxygen Concentration - - Weight 76.9 kg (169 lb 8.5 oz) 05/05/2022 10:03 PM FEATHER CURLING MACHINE OPERATOR Height 161.3 cm (5' 3.5) 05/05/2022 10:03 PM CS T Body Mass Index 29.56 05/05/2022 10:03 PM FEATHER CURLING MACHINE OPERATOR Plan of Treatment Health Maintenance Due Date Last Done Comments Hepatitis C 12[birth year]10/1963 DTaP, Tdap and Td Vaccines (1 - Tdap) 1964 Pneumococcal Vaccine: 50+ Years (1 of 1 - PCV) 12/10/1995 Zoster Vaccines (1 of 2) 12/10/1995 Annual Medicare Wellness Visit 2010 Dexa Scan (General) 2010 RSV Immunization or 60+ Years (1 - 1-dose 75+ series) 2020 COVID-19 Vaccine ( season) 2025 02/19/2022, 09/23/2021, 04/22/2021, Additional history exists Meningococcal B Vaccine Aged Out No l onger eligible based on patient's age to complete this topic Meningococcal Vaccine Aged Out No branden awilda eligible based on patient's age to complete this topic RSV Immunizations Under 20 Months Aged Out No longer eligible based on patient's age to complete this topic Insurance AETNA [facility] [place] [id number] Care Teams Oracle Obiee Developer Relationship Specialty Start Date End Date Eligio Menezes DO [address] [place] [phone] PCP - General INTERNAL MEDICINE 05/05/22
--- OUTSIDE RECORDS SUMMARY | 2025-02-26 16:53 | XMS_ITS | Encounter Summary ---
Author Organization [facility] Address [address] [place] [address] Care Team Providers Care Crop Grain Or Livestock Farmer Name Role Phone Fermin Olson MD Primary Care Provider Encounter Details Date Type Department Care Team (Late st Contact Info) Description 01/10/2025 Lab Requisition [facility] - DermPath Lab [address] [place] [id number] Adiel Herrera MD [address] [place] [address] Social History Tobacco Use Types Packs/Day Years Used Date Smoking Tobacco: Never Assessed Comments Unknown Sex and Gender Information Value Date Recorded Sex Assigned at Not on file Legal Sex Female 2:31 PM CDT Gender Identity Not on file Sexual Orientation Not on file documented as of this encounter Plan of Treatment Not on file documented as of this encounter Procedures Procedure Name Priority Date/Time Associated Diagnosis Comments DERMATOPATHOLOGY Routine 01/08/2025 12:0 0 AM CDT documented in this encounter Results * DERMATOPATHOLOGY (01/08/2025 12:00 AM CDT) Case Report Dermatopathology Report Case: [id number] Authorizing Provider: Adiel Herrera MD Collected: 01/08/2025 12:00 AM Ordering Location: [facility] - Received: 01/10/2025 07:15 AM DermPath Lab Pathologist: Pamela Field MD Specimen: Skin, left clavicle 3:57 PM CDT DERMATOPATHOLOGY LABORATORY Final Diagnosis Specimen A. SKIN, left clavicle: HEALING SKIN CHANGES (L90.5) EPIDERMAL NECROSIS SUGGESTIVE OF EXCORIATION (L98.499) (see microscopic description and comment) 3:57 PM CDT DERMATOPATHOLOGY LABORATORY at 1557 CDT Clinical History SCC 3:57 PM CDT DERMATOPATHOLOGY LABORATORY Gross Description Specimen A: Received is one formalin filled container labeled with the patient's name and designated left clavicle. The specimen consists of a curettage and desiccation biopsy measuring 6x5x1 mm. Jar 0. 3:57 PM CDT DERMATOPATHOLOGY LABORATORY Microscopic Description Specimen A. SKIN, left clavicle: There is epidermal hyperplasia beneath which there are vascular proliferation, fibroblasts, and an edematous stroma. The epidermis is focally necrotic and covered with a scale-crust. There is fibrin at the base. COMMENT: Given the superficial nature of the biopsy specimen, a deeper dermal process cannot be excluded. 3:57 PM CDT DERMATOPATHOLOGY LABORATORY Disclaimer An external and internal positive and negative controls are appropriate for the histochemical, immunohistochemical and immunofluorescence stain(s) in this case (if any), except where stated explicitly. The performance characteristics of the stain(s) cited in this report were developed and its performance characteristic determined by the Dermatopathology Laboratory at [facility], directed by Dr. Neda Carranza. These tests need not be, and therefore are not, approved by the [place] Food and Drug Administration. The tests are used for clinical purposes. Billing Codes Specimen Charges Stain Charges 49353 1 3:57 PM CDT DERMATOPATHOLOGY LABORATORY Embedded Images 3:57 PM CDT DERMATOPATHOLOGY LABORATORY Pathology/Cytolog y TISSUE SPECIMEN FROM SKIN / Unknown 01/08/2025 01/10/2025 7:15 AM CDT us Adiel Herrera MD LAB - PATHOLOGY/CYTOLOGY ORDERAB LES Final Result DERMATOPATHOLOGY LABORATORY [facility] - Department of Dermatology [facility] [address] [facility], [address]rd Floor [address] [phone] documented in this encounter Visit Diagnoses Not on filedocumented in this encounter Care Teams Crop Grain Or Livestock Farmer Relationship Specialty Start Date End Date Fermin Olson MD [address] [facility] [address] [place] [address] PCP - General 11/09/17 documented as of this encounter
--- OUTSIDE RECORDS SUMMARY | 2025-02-26 16:53 | XMS_ITS | Continuity of Care Document ---
Author Organization [facility] Address [address] [facility] [address] [place] [address] Insurance Providers Payer Plan Claims Address Claims Phone Policy Number Group Number Relation Employer Guarantor Name Guarantor Guarantor Address Guarantor Phone [facility] [address] [address], [place] [address] [id number] Self Shaista Mares 1945 [address] [place] [address] [employer] [address], [place] [address] [id number] Self Shaista Mares 1945 [address] [place], [place] [id number] Organ izati on/IC -3057 [address], [place] [address] [id number] Self Shaista Mares 1945 [address] [place], [place] [phone] Problems Unknown Problems Results No Results Allergies, adverse reactions, alerts No known allergies and adverse reactions Medications No administered medications reported Vital Signs No vital signs reported Social History No smoking Hx information available
--- OUTSIDE RECORDS SUMMARY | 2025-02-26 16:53 | XMS_ITS | Clinical Summary ---
Author Organization [facility] Address [address] [place] [address] Care Team Providers Care Laborer Electroplating Name Role Phone Almas Bravo MD Primary Care Provider [phone] Allergies Active Allergy Reactions Criticality Noted Date [...] Take 17 Grams by mouth daily. 03/07/20 Active omalizumab (Xolair) 150 mg/mL Auto-Injector Inject 1 mL by subcutaneous injection every 21 days. Active mupirocin (BACTROBAN) 2 % Ointment by See Admin Instructions route see administration instructions. 03/30/20 Active tamoxifen (NOLVADEX) 20 mg tablet Take 1 Tablet (20 mg) by mouth daily. 90 Tablet 2 06/27/19 Active Active Problems No known active problems Encounters Date Type Department Care Team Description 02/13/2025 External Device Data ST[facility] ABSTRACTION Provider, Abstract 01/30/2025 External Device Data STL ABSTRACTION Provider, Abstract 01/17/2025 External Device Data STL ABSTRACTION Provider, Abstract 12/27/2024 External Device Data STL ABSTRACTION Provider, Abstract 12/27/2024 External Device Data STL ABSTRACTION Provider, Abstract 12/27/2024 External Device Data STL ABSTRACTION Provider, Abstract 12/26/2024 External Device Data STL ABSTRACTION Provider, Abstract 11/29/2024 External Device Data STL ABSTRACTION Provider, Abstract 11/28/2024 External Device Data STL ABSTRACTION Provider, Abstract [...] on file Legal Sex Female 8:13 AM LEMON PICKER Gender Identity Not on file Sexual Orientation Not on file Last Filed Vital Signs Vital Sign Reading Time Taken Comments Blood Pressure 129/89 10/24/2024 2:37 PM CDT Pulse 69 10/24/2024 2:37 PM CDT Temperature 36.7 C (98.1 F) 10/24/2024 2:37 PM CDT Respiratory Rate 15 10/24/2024 2:37 PM CDT Oxygen Saturation 90% 10/24/2024 2:37 PM CDT Inhaled Oxygen Concentration - - Weight 73.8 kg (162 lb 12.8 oz) 10/24/2024 2:37 PM CDT Height - - Body Mass Index - - Plan of Treatment Upcoming Encounters Date Type Department Care Team (Late st Contact Info) Description 03/06/2025 2:00 PM CDT Office Visit [facility] [place] [address] [facility] [address] [place] [address] Danielito Telles MD [address] [facility] [address] [place] [address] Health Maintenance Due Date Last Done Comments DTAP/TDAP/TD VACCINES (1 - Tdap) 1964 PNEUMOCOCCAL VACCINE 50+ YEARS (1 of 2 - PCV) 12/09/18 65 ZOSTER VACCINE (1 of 2) 12/10/1995 OSTEOPOROSIS SCREENING 2010 RSV VACCINE (60+ or ) (1 - 1-dose 75+ series) 2020 [place]) Prev entative Visit/Annual Wellness Visit 06/14/2024 INFLUENZA VACCINE (#1) 2025 03/13/2022 Insurance AETNA PPO [facility] PPO [place]AYE SINGH [id number] Care Teams Laborer Electroplating Relationship Specialty Start Date End Date Almas Bravo MD [address] [place] [address] PCP - General Family Practice 06/27/24
--- OUTSIDE RECORDS SUMMARY | 2025-02-26 16:53 | XMS_ITS | Clinical Summary ---
Author Organization [facility] Address [address] [facility] [place] [address] Care Team Providers Care Scientific Linguist Name Role Phone Fermin Olson MD Primary Care Provider [phone] Source Comments [facility],non-owned Affiliates and Associated Physician Practices is amultiple site organization consisting of ambulatory clinics and hospital sitesin [place] and [place]. This disclosure is being [place]ursuant to the Care Everywhere program and may not contain all information available regarding this patient. Last updated 18.[facility] Encounters Date Type Department Care Team Description 01/10/2025 Lab Requisition [facility] - DermPath Lab [address] [place] [address] Adiel Herrera MD from Last 3 Months Social History Tobacco Use Types Packs/Day Years Used Date Smoking Tobacco: Never Assessed Comments Unknown Sex and Gender Information Value Date Recorded Sex Assigned at Not on file Legal Sex Female 2:31 PM CDT Gender Identity Not on file Sexual Orientation Not on file Plan of Treatment Health Maintenance Due Date Last Done Comments BONE DENSITY TESTING 1945 DTAP/TDAP/TD VACCINES (1 - Tdap) 1964 PNEUMOCOCCAL VACCINE 50+ (1 of 1 - PCV) 12/10/1995 ZOSTER VACCINE (1 of 2) 12/10/1995 Respiratory Syncytial Virus (RSV) Vaccine Pt: or over 60 yrs (1 - 1-dose 75+ series) 2020 DEPRESSION SCREENING 06/14/2024 MEDICARE AWV CALENDAR YEAR 2024 COVID-19 VACCINE (1 - 2024-2 5 season) 2025 INFLUENZA VACCINE (#1) 2025 HEPATITIS B VACCINE Aged Out No longe r eligible based on patient's age to complete this topic HIB VACCINE Aged Out No longer eligi ble based on patient's age to complete this topic HPV VACCINE Aged Out No longer eligi ble based on patient's age to complete this topic MENINGOCOCCAL (Group B) VACC INE SHARED DECISION-MAKING Aged Out No longer eligibl e based on patient's age to complete this topic MENINGOCOCCAL GROUPS A/C/Y/W VACCINE Aged Out No longer eligible b ased on patient's age to complete this topic Procedures Procedure Name Priority Date/Time Associated Diagnosis Comments DERMATOPATHOLOGY Routine 01/08/2025 12:0 0 AM CDT from Last 3 Months Results * DERMATOPATHOLOGY (01/08/2025 12:00 AM CDT) Case Report Dermatopathology Report Case: [id number] Authorizing Provider: Adiel Herrera MD Collected: 01/08/2025 12:00 AM Ordering Location: [facility] - Received: 01/10/2025 07:15 AM DermPath Lab [...] a deeper dermal process cannot be excluded. 5 3:57 PM CDT DERMATOPATHOLOGY LABORATORY Disclaimer An external and internal positive and negative controls are appropriate for the histochemical, immunohistochemical and immunofluorescence stain(s) in this case (if any), except where stated explicitly. The performance characteristics of the stain(s) cited in this report were developed and its performance characteristic determined by the Dermatopathology Laboratory at [facility], directed by Dr. Neda Carranza. These tests need not be, and therefore are not, approved by the [place] Food and Drug Administration. The tests are used for clinical purposes. Billing Codes Specimen Charges Stain Charges 37040 1 5 3:57 PM CDT DERMATOPATHOLOGY LABORATORY Embedded Images 3:57 PM CDT DERMATOPATHOLOGY LABORATORY Pathology/Cytolog y TISSUE SPECIMEN FROM SKIN / Unknown 01/08/2025 01/10/2025 7:15 AM CDT Adiel Herrera MD LAB - PATHOLOGY/CYTOLOGY ORDERAB LES Final Result DERMATOPATHOLOGY LABORATORY [facility] - Department of Dermatology [facility] [address] [place] [address], [address] [phone] from Last 3 Months Insurance [employer] AETNA MEDICARE ADV MEDICARE SUPPLEMENT PAYOR GENERIC SELF PAY NO INSURANCE Member Subscriber Plan / Payer (Ef fective for All Dates) Name:Kal Strange Member ID:Not on file Relation to Subscriber:Not on file Name:KAL STRANGE Subscriber ID:Not on file (Home) Address: [address] [place] [address], [place] [address] Payer ID:Not on file Group ID:Not on file Type:Self Pay Address: . [place], [place] AETNA MEDICARE ADV MEDICARE SUPPLEMENT PAYOR GENERIC Care Teams Scientific Linguist Relationship Specialty Start Date End Date Fermin Olson MD [address] [facility] [address] [place] [address] PCP - General 11/09/17
--- OUTSIDE RECORDS SUMMARY | 2025-02-26 16:53 | XMS_ITS | Clinical Summary ---
Author Organization [address] Address [address] [place] [id number] Care Team Providers Care Loan Adviser Name Role Phone Almas Bravo MD Primary Care Provider [phone] Mark Eduardo MD Unavailable [phone] Aft, Tete Juarez MD PhD Unavailable [phone] Allergies Active Allergy Reactions Criticality Noted Date Comments Cephalexin Rash Medium 05/05/2022 Doxycycline Rash Medium 10/09/2021 rash Ketamine Hallucinations Medium 05/02/2018 Penicillins Rash Medium Reaction: RASH, Medications zolpidem (AMBIEN) 10 mg tabletIndication s:Sleep-Onset Insomnia Take 1 tablet (10 mg total) by mouth nightly as needed for sleep 1 8 Active b complex vitamins capsuleIndicatio ns:Vitamin Deficiency Prevention Take 1 capsule by mouth promotion producer before breakfast Active ketoconazole (NIZORAL) 2 % shampoo Apply 1 Application topically as needed for dandruff 3 8 Active magnesium oxide 400 mg capsuleIndicatio ns:hypomagnesemi a,kidney Disease Take 400 mg by mouth 2 (two) times a day Active cholecalciferol (VITAMIN D-3) 4,000 unit capsuleIndicatio ns:Prevention of Vitamin D Deficiency Take 1 capsule (4,000 Units total) by mouth promotion producer before breakfast Active REPATHA SURECLICK 140 mg/mL [...] Deficiency Prevention Take 1 tablet by mouth promotion producer before breakfast Active losartan-hydroCH LOROthiazide (HYZAAR) 50-12.5 [...] 4 tablets (100 mg total) by mouth promotion producer before breakfast Active omalizumab (Xolair) 150 mg/mL auto-injectorInd ications:Chronic Idiopathic Urticaria,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 Inject 1 mL under the skin every 30 (thirty) days Active cycloSPORINE (RESTASIS) 0.05 % ophthalmic emulsion Administer 1 drop into both eyes as needed 4 Active levothyroxine (SYNTHROID) 75 mcg tabletIndication s:hypothyroidism Take 1 tablet (75 mcg total) by mouth promotion producer before breakfast 4 Active lidocaine (LIDODERM) 5 % Place 1 patch on the skin as needed for pain 4 Active potassium citrate ER (UROCIT-K) 10 mEq (1,080 mg) CR tabletIndication s:Urate Renal Calculi Take 1 tablet (10 mEq total) by mouth 2 (two) times a day 4 Active ELDERBERRY FRUIT ORALIndications: supplement Take 1 tablet by mouth promotion producer before breakfast Active HYDROcodone-acet aminophen (NORCO) 5-325 mg per tabletIndication s:Pain Take 1 tablet by mouth every 6 (six) hours as needed for pain (pain not controlled by other medicines. Take stool softeners to prevent constipation.) 8 tablet 4 Active polyethylene glycol (MIRALAX) 17 gram/dose bulk powder Take 17 g by mouth daily for 7 days 119 g 4 Active tamoxifen (NOLVADEX) 20 mg tablet Take 1 tablet (20 mg total) by mouth daily 5 Active Active Problems Problem Noted Date Diagnosed [...] 06/14/1959 Surgical History Surgery Date Site/Laterality Comments [place] OPEN IMPLANTATION NARESH SACRAL NERVE 01/13/2024 - [...] on file Legal Sex Female 8:49 PM PANEL COVERER Gender Identity Not on file Sexual Orientation Not on file Obstetrics History Last Filed Vital Signs Vital Sign Reading Time Taken Comments Blood Pressure 148/86 11/23/2024 2:40 PM CDT Pulse 67 11/23/2024 2:40 PM CDT Temperature 36.7 C (98 F) 11/23/2024 2:40 PM CDT Respiratory Rate 16 03/22/2024 2:28 PM CDT Oxygen Saturation 98% 11/23/2024 2:40 PM CDT Inhaled Oxygen Concentration - - Weight 80 kg (176 lb 6.4 oz) 11/23/2024 2:40 PM CDT Height 158.2 cm (5' 2.28) 11/23/2024 2:40 PM CD T Body Mass Index 31.97 11/23/2024 2:40 PM CDT Plan of Treatment Health Maintenance Due Date Last Done Comments Depression Screening 1945 Hepatitis C Screening 1945 Osteoporosis Screening-Bone Density Scan 1945 DTaP/Tdap/Td Vaccine (1 - Tdap) 1956 Hepatitis B Screening 12/10/1963 Pneumococcal vaccine 65+ (1 of 2 - PCV) 1964 Well Visit 65+ 2010 Covid-19 Vaccine (2024-2 6 season) 2025 03/16/2023, 02/19/2022, 09/23/2021, Additional history exists Influenza Vaccine (#1) 2025 , 03/13/2022, 02/11/2022, Additional history exists Fall Risk Assessment 03/07/2025 03/07/2024 Zoster Vaccine Completed 07/10/2023, 04/26/2023 Medical Devices Implanted Type Area Raw Stock Dyeing Machine Tender Device Identifier Shelf Expiration Date Model / Serial / Lot Pacemaker Pacemaker Chest Wall Interstim-Pain Control Back [employer] Ghiatas 20ga 20cm 7cm Beaded Barbed Needle Breast Wire [id number] - [id number] Implanted:Qty: 1 on 03/07/2024 by Estuardo Singh MD at [facility] [employer] [id number] / / Insurance [facility] [employer]ERCIAL GENERIC AENA MEDICARE [facility] Address: [facility] [id number] [place] [id number] COMMERCIAL GENERIC T MEDICARE COMMERCIAL GENERIC Advance Directives For more information, please contact: [phone] * Full Code (Latest Code Status on File) Date Activated Date Inactivated Comments 05/09/2018 10:28 PM 05/10/2018 2:25 PM Care Teams Loan Adviser Relationship Specialty Start Date End Date Almas Bravo MD PCP - General Family Practice 08/26/23 Mark Eduardo MD [address] [facility] [place] [id number] [place] [address] Surgeon Colon and Rectal Surgery 08/26/23 Aft, Tete Juarez MD PhD [address] [place] [address] Surgeon Surgical Oncology 03/07/24
--- OUTSIDE RECORDS SUMMARY | 2025-02-26 16:53 | XMS_ITS ---
Author Organization [address] Address [address] [place] [id number] Care Team Providers Care Military Science Instructor Name Role Phone Almas Bravo MD Primary Care Provider [phone] Mark Eduardo MD Unavailable [phone] Aft, Tete Juarez MD PhD Unavailable [phone] Active Problems Problem Noted Date Diagnosed Date [...] Hyperlipidemia 03/05/2010 Syncope 06/14/1959 Chest pain 06/14/1959 Current Treatment and Therapy Plans No current plan information found. Past Treatment and Therapy Plans No past plan information found. Lifetime Dose Tracking * Chemical Lifetime Dose Automatic Entry Manual Entr y Fluoro Time 5.5 minutes 0 minutes 5.5 minutes
== END 2025-02-26 14:02 | disposition home or self-care (01) ==
PROVIDERS: PCP Family Medicine; Visit Provider Internal Medicine Hematology & Oncology
DX: C50.919 Malignant neoplasm of unspecified site of unspecified female breast (principal); Z17.0 Estrogen receptor positive status [ER+]
CPT/HCPCS: 36415; 80053; 85025; 86300

== ENCOUNTER 2025-05-25 14:13 | Outpatient (CLI) | payer MEDICARE, OTHER, SELFPAY ==
--- NOTE | ~2025-05-25 | US_ITS ---
EXAMINATION: US renal BI, 05/25/2025 14:15 HVAC SERVICE TECH HISTORY: N39.0 - Urinary tract infection, site not specified Comparison: None Technique: Walker-scale and color Doppler images were obtained. Findings: KIDNEYS: The renal cortices are thinned and echogenic, no solid masses, cysts or calculi, no hydronephrosis. Right Kidney: Right kidney 9.2 x 3.1 x 3.8 cm. Left Kidney: Left kidney 8.5 x 4.5 x 4.8 cm. Bladder: The bladder is unremarkable. . Impression: Medical renal disease. No obstruction Reviewed, dictated and finalized at location P. SERVICE TECH Impression: Medical renal disease. No obstruction
== END 2025-05-25 14:14 | disposition home or self-care (01) ==
LOC: GOSHIMG 14:14
PROVIDERS: PCP Family Medicine; Visit Provider Internal Medicine Nephrology
DX: N39.0 Urinary tract infection, site not specified (principal); N18.32 Chronic kidney disease, stage 3b
CPT/HCPCS: 76770